=== PATIENT | male | born 1935 | race Caucasian/White ===

== ENCOUNTER 2016-12-20 15:05 | Inpatient (IN) | payer OTHER, MEDICARE ==
[~2016-12-20] VITALS: Ht 182.9 cm; Wt 77.1 kg
[2016-12-20 15:05] VITALS: BP 183/127; PULSE 121; RESP 30; TEMP 97.7; O2SAT 98
[~2016-12-20 15:05] MED LIST: DULO60CA41 PO; ESOM40CA PO; ESOM40CA53 PO; FAMO20TA98 PO; LEVO500T20 PO; LORA-259 PO; PRAV40TA PO; PRED20TA PO; TRAM50TA92 PO; ZOLP10TA2 PO; [UNRECOGNIZED DRUG - CODE] IJ
--- NOTE | 2016-12-20 15:05 | NUR ---
BROUGHT IN BY ACLS RAFAELA 65 AND MANAS MOROCHO, PLACED IN BED #1 AND TRIAGED, REPORT GIVEN TO ANITRA
--- NOTE | 2016-12-20 15:05 | NUR ---
Arrived via ALS ambulance with resp distress. Resp 32 with retraction, accesory muscle use. Lungs with scant wheezes, diminished throughout. Skin is dry and flushed. West to speak one word at a time only.
--- NOTE | 2016-12-20 15:06 | NUR ---
Dr. Mata immediantly to bedside.
--- NOTE | 2016-12-20 15:07 | NUR ---
Dale MCKEON at bedside starting BiPAP.
[2016-12-20] MEDS ORDERED: NS 500 ML IV SCH (15:10)
[2016-12-20] MEDS ORDERED: IPRATROPIUM BROM 0.5 MG/2.5 ML VIAL.NEB (ATROVENT) INH ONE ×2 (15:14→15:15)
[2016-12-20] MEDS ORDERED: ALBUTEROL SULFATE 0.083% 2.5 MG/3 ML VIAL.NEB INH ONE ×2 (15:14→15:15)
[2016-12-20] MEDS ORDERED: methylPREDNISolone SOD SUCC/PF 62.5 MG/ML VIAL IVP ONE (15:15)
[2016-12-20 15:32] LABS: HEMOGLOBIN 15.3 g/dL (14.0-18.0); MEAN CORPUSCULAR VOLUME 89 fL (79.0-98.0); MONOCYTES # (AUTO) 0.3 K/uL (0.0-1.0)
--- NOTE | 2016-12-20 15:32 | NUR ---
Patient is tolerating BiPAP well. Able to speak in 3-4 word sentences, no accessory muscle use, patient is riding the machine at 22. O2 sat 100%. Lungs remain diminshed.
[2016-12-20 15:37] LABS: BASOPHILS # (AUTO) 0.1 K/uL (0.0-0.2); BASOPHILS % (AUTO) 2.1 % (0.0-2.0); EOSINOPHILS % (AUTO) 0.1 % (0.0-4.0); HEMATOCRIT 47.4 % (36-54); LYMPHOCYTES # (AUTO) 0.9 K/uL (1.0-5.5); LYMPHOCYTES % (AUTO) 16.2 % (20.5-51.5); MEAN CORPUSCULAR HEMOGLOBIN 29 pg (27-31); MEAN CORPUSCULAR HGB CONC 32 % (32-36); MONOCYTES % (AUTO) 5.6 % (1.7-9.3); NEUTROPHILS # (AUTO) 4.3 K/uL (1.8-7.7); PLATELET COUNT (AUTO) 236 K/uL (130-430); RED BLOOD CELL COUNT(AUTO) 5.33 MIL/uL (4.2-6.2); RED CELL DISTRIBUTION WIDTH 13.4 % (9.0-15.0); WHITE BLOOD COUNT (AUTO) 5.6 K/uL (4.8-10.8)
[2016-12-20 15:44] LABS: ANION GAP 13 (5-15); CALCIUM 8.8 mg/dL (8.4-11.0); CHLORIDE 94 mmol/L (98-107); CREATININE 1.14 mg/dL (0.55-1.30); GLUCOSE 198 mg/dL (70-99); SODIUM SERUM 136 mmol/L (136-145); UREA NITROGEN, BLOOD 24 mg/dL (8-21)
[2016-12-20 15:49] LABS: ALANINE AMINOTRANSFERASE 34 U/L (12-78); ALBUMIN 3.8 g/dL (3.4-4.8); ASPARTATE AMINOTRANSFERASE 29 U/L (10-37); TOTAL BILIRUBIN 0.3 mg/dL (0.0-1.0); TOTAL PROTEIN, SERUM 8.3 g/dL (6.4-8.3)
[2016-12-20 15:51] LABS: PROTHROMBIN TIME 10.7 SECS (9.5-12.5)
[2016-12-20 16:08] LABS: BLOOD GAS PH 7.304 (7.350-7.450)
[2016-12-20 16:09] LABS: BLOOD GAS BASE EXCESS -0.8 mmol/L (-3.0-3.0); BLOOD GAS HHB 1.1 % (0.0-6.0); BLOOD O2Hb% 97.4 % (94.0-97.0)
--- NOTE | 2016-12-20 16:50 | NUR ---
Patient is at rest in bed taking a nap. I inadvertently woke the patient up, denies pain, states that he feels improved.
[2016-12-20] MEDS: methylPREDNISolone SOD SUCC/PF 62.5 MG/ML VIAL IVP SCH ×2 (18:00→23:09)
--- NOTE | 2016-12-20 18:10 | NUR ---
Dr. Ceron is at bedside with pt.
--- NOTE | 2016-12-20 19:00 | NUR ---
Patient will be admitted to care of [facility]. Admitted to TELE unit. Will go to room 131 A. Belongings list completed. Summary report printed. Report given to DANE.
[2016-12-20 19:30] VITALS: BP 156/76; PULSE 79; RESP 24; TEMP 98.3; O2SAT 97
--- NOTE | 2016-12-20 19:30 | NUR ---
ADMISSION: The patient, NANCI BROWN, 81 y/o, M admitted by KIRSTY CRABTREE MD, was given written information regarding hospital policies, unit procedures and contact persons.
[2016-12-20 19:40] VITALS: BP 156/76; PULSE 79; RESP 24; TEMP 98.3; O2SAT 97
[2016-12-20] MEDS: IPRATROPIUM/ALBUTEROL SULFATE 3 ML AMPUL.NEB INH SCH ×2 (20:14→23:26)
[2016-12-20] MEDS ORDERED: TIOT18CA3 IH (20:20)
[2016-12-20] MEDS ORDERED: IPRA4AER INH (20:20)
[2016-12-20] MEDS ORDERED: MIRT15TA7 PO (20:20)
[2016-12-20] MEDS ORDERED: FLUT1DIS3 INH (20:20)
[2016-12-20] MEDS ORDERED: PRAV40TA63 PO (20:20)
[2016-12-20] MEDS ORDERED: ESOM40CA53 PO (20:20)
[2016-12-20] MEDS ORDERED: ALBU2.5V7 INH (20:20)
[2016-12-20] MEDS ORDERED: DULO20CA PO (20:20)
[2016-12-20] MEDS ORDERED: ZOLP10TA6 PO (20:20)
[2016-12-20 21:02] VITALS: BP 156/76; PULSE 78
--- NOTE | 2016-12-20 21:20 | NUR ---
PAGED PAGED KIRSTY ABDI AT [phone] SPOKE WITH KAMILLA.
--- NOTE | 2016-12-20 21:50 | NUR ---
DR. BRO CRABTREE GIVEN HOME MED LIST. AND ADVANCE DIET TO REGULAR.
[2016-12-20] MEDS: cefTRIAXone 1 GM in D5W 50 ML IV SCH (21:57)
[2016-12-20] MEDS ORDERED: DULoxetine HCL 20 MG CAPSULE.DR PO SCH (22:00)
[2016-12-20] MEDS ORDERED: DULoxetine HCL 30 MG CAPSULE.DR (CYMBALTA) PO ONE (22:30)
[2016-12-20] MEDS ORDERED: DULO60CA41 PO (22:33)
[2016-12-20] MEDS ORDERED: MIRTAZAPINE 15 MG TABLET PO ONE (22:40)
[2016-12-20] MEDS: PANTOPRAZOLE SODIUM 40 MG/VIAL (PROTONIX) IVP SCH (23:10)
[2016-12-21] VITALS: BP 149/74; PULSE 76; RESP 20; TEMP 98.7; O2SAT 98
--- NOTE | 2016-12-21 00:10 | NUR ---
NOTES PATIENT RESTING QUIETLY. HAS EKG IS PACED 100%. HAS PAIN PUMP TO LT. ABDOMEN. PATIENT STATES HE IS IN CONSTANT PAIN RE. TO HIS BACK SX. X6.
--- NOTE | 2016-12-21 02:05 | NUR ---
ROUNDS NO RESPIRATORY DISTRESS NOTED @ THIS TIME. APPEARS ASLEEP @ THIS TIME.
[2016-12-21] MEDS: IPRATROPIUM/ALBUTEROL SULFATE 3 ML AMPUL.NEB INH SCH ×6 (03:00→23:47)
--- NOTE | 2016-12-21 04:10 | NUR ---
PATIENT RESTING: Patient resting quietly. No acute distress noted. Vital signs within normal range.
[2016-12-21 04:47] VITALS: BP 146/72; PULSE 72; RESP 20; TEMP 98.6; O2SAT 100
[2016-12-21] MEDS: methylPREDNISolone SOD SUCC/PF 62.5 MG/ML VIAL IVP SCH ×3 (05:35→18:35)
--- NOTE | 2016-12-21 06:30 | NUR ---
CLOSING NOTES PT. WITH SOB WHEN GETTING UP TO BATHROOM. GAIT IS UNSTEADY. GOT ANGRY WHEN NURSE TRIED ASSISTING PATIENT TO BATHROOM. REFUSED ALARM BED.HAD HHN TREATMENT. CONTINUE ON O2 2L N/C. O2 SAT. IS 95% @ THIS TIME. HAD BM. CALL LIGHT WITHIN EASY ACCESS. EDUCATED PATIENT NOT TO GET OUT OF BED WITHOUT ASSIST. BED IN LOW POSITION. SIDE-RAILS UP X2. .
[2016-12-21 07:08] LABS: ALANINE AMINOTRANSFERASE 27 U/L (12-78); ALBUMIN 3.2 g/dL (3.4-4.8); ANION GAP 4 (5-15); ASPARTATE AMINOTRANSFERASE 16 U/L (10-37); CALCIUM 8.7 mg/dL (8.4-11.0); CHLORIDE 96 mmol/L (98-107); CREATININE 0.82 mg/dL (0.55-1.30); GLUCOSE 127 mg/dL (70-99); POTASSIUM 4.5 mmol/L (3.5-5.1); SODIUM SERUM 136 mmol/L (136-145); TOTAL BILIRUBIN 0.2 mg/dL (0.0-1.0); TOTAL PROTEIN, SERUM 7.3 g/dL (6.4-8.3); UREA NITROGEN, BLOOD 18 mg/dL (8-21)
[2016-12-21 07:37] LABS: BASOPHILS % (AUTO) 0.3 % (0.0-2.0); EOSINOPHILS # (AUTO) 0.1 K/uL (0.0-0.4); EOSINOPHILS % (AUTO) 1.9 % (0.0-4.0); HEMATOCRIT 41.7 % (36-54); LYMPHOCYTES # (AUTO) 0.7 K/uL (1.0-5.5); MEAN CORPUSCULAR HEMOGLOBIN 30 pg (27-31); MEAN CORPUSCULAR HGB CONC 34 % (32-36); MEAN CORPUSCULAR VOLUME 88 fL (79.0-98.0); MONOCYTES # (AUTO) 0.3 K/uL (0.0-1.0); MONOCYTES % (AUTO) 5.8 % (1.7-9.3); NEUTROPHILS # (AUTO) 4.2 K/uL (1.8-7.7); PLATELET COUNT (AUTO) 204 K/uL (130-430); RED BLOOD CELL COUNT(AUTO) 4.72 MIL/uL (4.2-6.2); RED CELL DISTRIBUTION WIDTH 13.6 % (9.0-15.0)
[2016-12-21 07:39] LABS: WHITE BLOOD COUNT (AUTO) 5.3 K/uL (4.8-10.8)
[2016-12-21 07:48] VITALS: BP 130/90; PULSE 70; RESP 18; TEMP 98.6; O2SAT 93
--- NOTE | 2016-12-21 07:50 | NUR ---
Initial Note Pt in stable condition, no s/s of distress or sob noted, pt has no c/o pain at this time, pt in stable condition. IV catheters patent, no signs of infection or infiltration noted. Pt aaox4, verbal. Bed at lowest position, call light within reach, will continue to monitor pt for any changes. Fall and aspiration precautions in place. Pt refused to have bed alarm on, explained to pt safety precautions and pt verbalized but continues to refuse. Charge nurse aware, educated pt to call when he needs help and he verbalized he understood and said yes.
[2016-12-21 08:16] LABS: BLOOD GAS BASE EXCESS 7.8 mmol/L (-3.0-3.0); BLOOD GAS COHb% 0.4 % (0.5-1.5); BLOOD O2Hb% 90.4 % (94.0-97.0)
[2016-12-21] MEDS ORDERED: NON-FORMULARY MEDICATION (Pravastatin Sodium 40 MG) PO SCH (09:00)
[2016-12-21] MEDS: SIMVASTATIN 20 MG TABLET PO SCH (09:03)
[2016-12-21] MEDS: DULoxetine HCL 30 MG CAPSULE.DR (CYMBALTA) PO SCH ×2 (09:03→21:15)
--- NOTE | 2016-12-21 09:58 | NUR ---
MD ROUNDS Dr Ceron making her rounds, aware of patients condition.
[2016-12-21] MEDS ORDERED: HYDROcodone/ACETAMIN 5-325 MG TAB (NORCO/ VICODIN) PO PRN (10:00)
--- NOTE | 2016-12-21 10:56 | NUR ---
ROUNDS Pt in bed, no s/s of distress or sob noted, pt has no c/o pain at this time, pt in stable condition, pt resting comfortably, will continue to monitor pt for any changes.
[2016-12-21] MEDS: MAG-AL HYDROX/SIMETH 30 ML UDC PO PRN (11:15)
[2016-12-21 12:07] VITALS: BP 125/65; PULSE 74; RESP 19; TEMP 98.7; O2SAT 95
[2016-12-21 16:12] VITALS: BP 128/72; PULSE 75; RESP 19; TEMP 98.2; O2SAT 97
--- NOTE | 2016-12-21 18:25 | NUR ---
Closing Note Pt in stable condition, no s/s of distress or sob noted, pt has no c/o pain at this time, pt in stable condition. IV catheters patent, no signs of infection or infiltration noted. Pt aaox4, verbal. Bed at lowest position, call light within reach, will endorse care of pt to incoming nurse. Fall and aspiration precautions in place. Pt has oxygen 2 liters via oxymizer, saturation of 95%. Per Dr Ceron pt is a modified code, no cpr or intubation, ok for pressors and bipap, there is an order in chart, notified charge nurse. Addendum: 12/21/16 at 1827 by Ruby Brown RN will endorse incoming nurse
--- NOTE | 2016-12-21 19:30 | NUR ---
INITIAL NOTES. RECEIVED PATIENT DURING BEDSIDE REPORT,AWAKE ORIENTED X4.FAMILIES AT BEDSIDE. HAS EXERTIONAL DYSPNEA. ON O2 2LPER N/C.
[2016-12-21] MEDS: IPRATROPIUM/ALBUTEROL SULFATE 3 ML AMPUL.NEB INH PRN (19:37)
[2016-12-21 20:00] VITALS: BP 135/71; PULSE 73; RESP 22; TEMP 98; O2SAT 94
--- NOTE | 2016-12-21 20:05 | NUR ---
VITAL SIGNS TAKEN. ALL WITHIN NORMAL LIMITS. BREATHING DEEP AND SHALLOW. SAID I AM OKAY .I DO THIS ALL THE TIME. SAT 96%.
[2016-12-21] MEDS: cefTRIAXone 1 GM in D5W 50 ML IV SCH (21:05)
[2016-12-21] MEDS: MIRTAZAPINE 15 MG TABLET PO SCH (21:15)
--- NOTE | 2016-12-21 21:20 | NUR ---
ALL DUE MEDS GIVEN. OFFERED PAIN MEDS BUT SAID I DONT NEED IT.
--- NOTE | 2016-12-21 23:00 | NUR ---
STILL SITTING UP WITH EYES CLOSE. DENIES SOB AND PAIN.
[2016-12-22] VITALS: BP 108/94; PULSE 69; RESP 17; TEMP 97.8; O2SAT 94
--- NOTE | 2016-12-22 | NUR ---
PATIENT SLEEPING ON LEFT SIDE POSITION. O2 ON. NO DISTRESS.
[2016-12-22] MEDS: methylPREDNISolone SOD SUCC/PF 62.5 MG/ML VIAL IVP SCH ×5 (00:23→23:06)
--- NOTE | 2016-12-22 02:00 | NUR ---
PATIENT CONTINUE SLEEPING TO RIGHT SIDE FLAT ON BED.
[2016-12-22] MEDS: IPRATROPIUM/ALBUTEROL SULFATE 3 ML AMPUL.NEB INH SCH ×7 (03:00→23:32)
--- NOTE | 2016-12-22 04:00 | NUR ---
SEEN PATIENT SITTING UP ON BED WITH O2 ON. DENIES SOB BUT SEEN BREATHING DEEP AND SHALLOW. WILL MONITOR CLOSELY.
[2016-12-22 04:57] VITALS: BP 107/45; PULSE 66; RESP 19; TEMP 98.2; O2SAT 94
--- NOTE | 2016-12-22 06:30 | NUR ---
CLOSING: HOURLY ROUNDS DONE. HYGIENE DONE. ALL NEEDS WERE ATTENDED, NO SCD NO MACHINE AVAILABLE. CALL LIGHT HAS BEEN WITHIN REACH. BED IN LOW POSITION. FALL PRECAUTION IN PROGRESS.
--- NOTE | 2016-12-22 08:32 | NUR ---
Nutrition Update Mele Scale 16 noted. Pt admitted for acute and chronic respiratory failure. Diet: regular BMI: 23.1 kg/m2 RD to follow per nutrition care standards.
--- NOTE | 2016-12-22 08:36 | NUR ---
Initial Note Patient A/O x4. Respirations even, slightly labored; Oxymizer in place, patient denies difficulty breathing. IV access patent. Denies chest pain and generalized discomfort at this time.Use of call light reviewed with patient. Bed in lowest and locked position. Fall and safety precautions in place. Encouraged patient to call for assistance, patient acknowledged understanding.
[2016-12-22 08:40] VITALS: BP 126/66; PULSE 80; RESP 18; TEMP 98.3; O2SAT 94
[2016-12-22] MEDS: SIMVASTATIN 20 MG TABLET PO SCH (09:20)
[2016-12-22] MEDS: DULoxetine HCL 30 MG CAPSULE.DR (CYMBALTA) PO SCH ×2 (09:20→20:44)
[2016-12-22] MEDS: PANTOPRAZOLE SODIUM 40 MG/VIAL (PROTONIX) IVP SCH (09:21)
--- NOTE | 2016-12-22 10:00 | NUR ---
Notes Plan of care reviewed with patient and . No further questions at this time.
[2016-12-22] MEDS ORDERED: FLUTICASONE/VILANTEROL 1 EACH BLST.W.DEV INH ONE (10:15)
[2016-12-22 12:00] VITALS: BP 111/71; PULSE 77; RESP 18; TEMP 98.1; O2SAT 94
--- NOTE | 2016-12-22 15:38 | NUR ---
Notes Home medication has been provided by and has been verified and labeled by pharmacy. Advair medication is in patient's cubby in medication room.
[2016-12-22 16:00] VITALS: BP 132/66; PULSE 55; RESP 20; TEMP 98.1; O2SAT 96
--- NOTE | 2016-12-22 18:00 | NUR ---
Notes Patient complaint of sore throat. Small white spots noted on oral cavity wall upon assessment. Dr. Ceron was made aware, orders were given and carried out.
[2016-12-22] MEDS: NYSTATIN 500,000 UNITS/5 ML UDC PO SCH ×2 (18:38→23:12)
--- NOTE | 2016-12-22 19:30 | NUR ---
Closing Note Patient needs met throughout shift. Patient remained free from respiratory distress throughout shift. Patient care has been endorsed to oncoming shift nurse.
--- NOTE | 2016-12-22 19:55 | NUR ---
PM SHIFT ASSESSMENT RECEIVED PATIENT IN BED, AOX4, 0N 02 2L OXYMIZER, NO SOB NOTED, VITALS STABLE. DENIES ANY PAIN OR DISCOMFORT AT THIS TIME. POC DISCUSSED WITH PATIENT. VERBALIZED UNDERSTANDING. ORIENTED TO USE CALL LIGHT FOR NURSE ASSISTANCE. CALL LIGHT WITHIN REACH, SAFETY MEASURES IN PLACE, WILL CONTINUE TO MONITOR.
[2016-12-22 20:00] VITALS: BP 106/61; PULSE 77; RESP 21; TEMP 98.8; O2SAT 92
[2016-12-22] MEDS: cefTRIAXone 1 GM in D5W 50 ML IV SCH (20:43)
[2016-12-22] MEDS: MIRTAZAPINE 15 MG TABLET PO SCH (20:44)
[2016-12-22] MEDS: ADVAIR 500/50 INH SCH (20:44)
[2016-12-22] MEDS: HEPARIN SODIUM,PORCINE 5000 UNITS/ML VIAL SUBCUT SCH ×2 (20:45→21:00)
[2016-12-22] MEDS ORDERED: FLUTICASONE 500 mCg/SALMETEROL 50 mCg DISKUS W.DEV INH SCH (21:00)
--- NOTE | 2016-12-22 22:15 | NUR ---
RN ROUNDS PATIENT RESTING QUIETLY IN BED, NO SOB NOTED, REMAINS ON 02 2L VIA OXYMIZER. DUE MEDICATIONS ADMINISTERED. PATIENT REFUSED HEPARIN SQ THIS PM. EDUCATED ON NEW MEDICATION BUT PATIENT STILL REFUSING. CALL LIGHT WITHIN REACH, WILL CONTINUE TO MONITOR.
--- NOTE | 2016-12-22 23:17 | NUR ---
IV/RN ROUNDS OLD IV LINE ACCIDENTLY PULLED OUT BY PATIENT. NEW IV LINE PLACED ON LEFT WRIST WITH 22 GAUGE CATHETER, GOOD BLOOD RETURN NOTED, SECURED WITH OPSITE AND TAPE. DUE MEDICATIONS ADMINISTERED. PATIENT AMBULATED TO BATHROOM WITH STANDBY ASSISTANCE, PLACED BACK IN BED, OXYMIZER AT 2L. SAFETY MEASURES IN PLACE, CALL LIGHT WITHIN REACH , WILL MONITOR.
--- NOTE | 2016-12-23 00:22 | NUR ---
RN ROUNDS PATIENT WAS C/O OF SOB EARLIER, RT CALLED AND ADMINISTERED BREATHING TX, PATIENT SLEEPING AT THIS TIME. REMAINS ON 02 2L VIA OXYMIZER, VITALS STABLE. SAFETY MEASURES IN PLACE, CALL LIGHT WITHIN REACH, WILL MONITOR.
[2016-12-23 01:20] VITALS: BP 121/51; PULSE 68; RESP 20; TEMP 98; O2SAT 94
--- NOTE | 2016-12-23 02:20 | NUR ---
RN ROUNDS PATIENT CONTINUES TO SLEEP, RESPIRATIONS EVEN AND UNLABORED. REMAINS ON 02 2L OXYMIZER. SAFETY MEASURES IN PLACE, CALL LIGHT WITHIN REACH, WILL MONITOR.
[2016-12-23] MEDS: IPRATROPIUM/ALBUTEROL SULFATE 3 ML AMPUL.NEB INH SCH ×6 (03:30→23:44)
--- NOTE | 2016-12-23 04:11 | NUR ---
RN ROUNDS PATIENT CONTINUES TO SLEEP, RESPIRATIONS EVEN AND UNLABORED. REMAINS ON 02 2L OXYMIZER. VITAL SIGNS STABLE. SAFETY MEASURES IN PLACE, CALL LIGHT WITHIN REACH, WILL CONTINUE TO MONITOR.
[2016-12-23 05:03] VITALS: BP 121/60; PULSE 65; RESP 19; TEMP 98.6; O2SAT 93
[2016-12-23] MEDS: NYSTATIN 500,000 UNITS/5 ML UDC PO SCH ×3 (05:54→17:41)
[2016-12-23] MEDS: methylPREDNISolone SOD SUCC/PF 62.5 MG/ML VIAL IVP SCH ×3 (05:54→21:37)
--- NOTE | 2016-12-23 06:18 | NUR ---
RN ROUNDS PATIENT AWAKE, NO SOB NOTED, REMAINS ON 02 2L VIA OXYMIZER. C/O OF BACK PAIN, REFUSED NORCO AT THIS TIME. PATIENT HAS MORPHINE PAIN PUMP TO HELP WITH BACK PAIN, DUE MEDICATIONS ADMINISTERED. NEEDS ATTENDED THROUGH OUT SHIFT, SAFETY MEASURES MAINTAINED, CALL LIGHT REMAINS WITHIN REACH, WILL CONTINUE TO MONITOR UNTIL REPORT GIVEN TO AM NURSE.
[2016-12-23 07:52] VITALS: BP 130/68; PULSE 85; RESP 20; TEMP 99.3; O2SAT 95
--- NOTE | 2016-12-23 08:00 | NUR ---
NOTE PT SITTING UP IN BED EATING HIS BREAKFAST. NO SOB/RESP DISTRESS OR PAIN/DISCOMFORT NOTED AT THIS TIME. PT HAS HIS OXIMIZER ON AT 2L. IV IN LEFT HAND INTACT AND PATENT AT THIS TIME. CALL LIGHT WITHIN REACH. PT STATES HE HAS PAIN IN BACK - ONGOING PROBLEM FOR YEARS.
[2016-12-23] MEDS: HEPARIN SODIUM,PORCINE 5000 UNITS/ML VIAL SUBCUT SCH ×2 (09:00→21:00)
[2016-12-23] MEDS ORDERED: FLUTICASONE/VILANTEROL 1 EACH BLST.W.DEV INH SCH (09:00)
[2016-12-23] MEDS: PANTOPRAZOLE SODIUM 40 MG/VIAL (PROTONIX) IVP SCH (09:08)
[2016-12-23] MEDS: DULoxetine HCL 30 MG CAPSULE.DR (CYMBALTA) PO SCH ×2 (09:09→21:37)
[2016-12-23] MEDS: SIMVASTATIN 20 MG TABLET PO SCH (09:09)
[2016-12-23] MEDS: ADVAIR 500/50 INH SCH ×2 (09:09→21:38)
--- NOTE | 2016-12-23 10:00 | NUR ---
NOTE PT AMBULATED TO RESTROOM WITH STEADY GAIT. O2 TUBING LONG AND EXTENDED AT THIS TIME. PT WILL BE WORKING WITH PHYSICAL THERAPY USING WALKER WITH SEAT (PT'S OWN). DENIES ANY PAIN OR ANY NEEDS AT THIS TIME. CALL LIGHT WITHIN REACH.
[2016-12-23] MEDS: DOCUSATE SODIUM 100 MG CAPSULE PO SCH ×2 (11:19→21:36)
--- NOTE | 2016-12-23 12:00 | NUR ---
NOTE PT SITTING UP IN BED WITH O2 OXIMIZER ON. PT'S AT BEDSIDE AT THIS TIME. NO SOB/RESP DISTRESS NOTED AT THIS TIME. NO NEEDS NOTED. CALL LIGHT WITHIN REACH.
[2016-12-23 12:53] VITALS: BP 121/71; PULSE 90; RESP 18; TEMP 98.3; O2SAT 96
[2016-12-23] MEDS: IPRATROPIUM/ALBUTEROL SULFATE 3 ML AMPUL.NEB INH PRN (13:17)
[2016-12-23] MEDS ORDERED: IPRATROPIUM/ALBUTEROL SULFATE 3 ML AMPUL.NEB INH ONE (14:15)
[2016-12-23] MEDS ORDERED: MAGNESIUM SULFATE 50 ML IV ONE (14:15)
[2016-12-23] MEDS ORDERED: methylPREDNISolone SOD SUCC/PF 62.5 MG/ML VIAL IVP ONE (14:15)
--- NOTE | 2016-12-23 15:00 | NUR ---
NOTE PT WAS SITTING UP IN BED AND WATCHING TELEVISION, WHEN HE HAD DIFFICULTY BREATHING AND COULD NOT CATCH HIS BREATH. 2 RESP THERAPISTS AND TAFFY CANDY MAKERMUKESH MCCULLOUGH AND DANIELITO AND MUKESH CERRATO WERE AT BEDSIDE. BREATHING TREATMENTS WERE BEING ADMINISTERED AND MEDICATIONS GIVEN. RESP THERAPIST WAS ALSO DOING CHEST THERAPY. AFTER ABOUT 10-15 MINUTES PT COUGHED UP A PIECE OF HAMBURGER MEAT WHICH HE HAD ASPIRATED ON WHEN EATING HIS HAMBURGER. ONCE PIECE OF MEAT WAS DISLODGED AND CAME UP IN MOUTH, HE STATED HE FELT MUCH BETTER AND WAS ABLE TO BREATHE WITHOUT ANY DISCOMFORT OR PAIN. DR CRABTREE WAS ON THE FLOOR AND CAME TO BEDSIDE AND ASSESSMENT OF PT WAS DONE AND MEDICATIONS WERE ORDERED AND CARRIED OUT. PT'S OXIMIZER IS ON AND NO NEEDS FURTHER WERE NEEDED AT THIS TIME. CALL LIGHT WITHIN REACH. Addendum: 12/23/16 at 1650 by Bianca Saunders RN ABG WAS ALSO ORDERED AND DONE PER REQUEST.
[2016-12-23 15:09] LABS: BLOOD GAS PH 7.374 (7.350-7.450)
[2016-12-23 15:10] LABS: ABG TOTAL HEMOGLOBIN 15.4 G/dL (12.0-18.0); BLOOD GAS BASE EXCESS 3.7 mmol/L (-3.0-3.0); BLOOD GAS COHb% 0.7 % (0.5-1.5); BLOOD GAS HHB 4.7 % (0.0-6.0); BLOOD O2Hb% 94.1 % (94.0-97.0)
--- NOTE | 2016-12-23 18:00 | NUR ---
NOTE PT SITTING UP IN BED WATCHING TELEVISION. PT SITTING UP IN BED DUE TO SEVERE BACK PAIN AND METAL IN HIS BACK. PT WAS CHECKED ON Q1' AND NEEDS AND CARE WAS GIVEN. PT HAS HIS O2 ON WITH OXIMIZER - NO SOB/RESP DISTRESS OR PAIN/DISCOMFORT NOTED AT THIS TIME. PT STABLE AND NO NEEDS NOTED AT THIS TIME. CALL LIGHT WITHIN REACH.
[2016-12-23 18:53] VITALS: BP 137/70; PULSE 84; RESP 20; TEMP 97.9; O2SAT 96
[2016-12-23 20:00] VITALS: BP 135/73; RESP 28; O2SAT 97
--- NOTE | 2016-12-23 20:00 | NUR ---
ASSESSMENT Pt alert/ oriented to self, time and place. Pt with oxymizer @ 2L/min. Pt with internal Morphine pump LLQ abdomen and RLQ abdominal internal spinal cord stimulator. SL present L wrist 22ga, no redness or swelling noted @ site.
--- NOTE | 2016-12-23 21:00 | NUR ---
HEPARIN Pt refusing to receive Heparin. Pt was given DVT education, Pt continuos to refuse medication.
[2016-12-23] MEDS: MIRTAZAPINE 15 MG TABLET PO SCH (21:36)
[2016-12-23] MEDS: cefTRIAXone 1 GM in D5W 50 ML IV SCH (21:36)
[2016-12-24 01:15] VITALS: BP 120/63; PULSE 75; RESP 18; TEMP 97.4; O2SAT 93
--- NOTE | 2016-12-24 02:00 | NUR ---
ASSESSMENT Pt sleeping. Addendum: 12/24/16 at 0756 by Марина Vogel RN PATIENT RESTING: Patient resting quietly. No acute distress noted. Vital signs within normal range. Patient is able to reposition self in bed and is encouraged to request assistance when needed.
[2016-12-24] MEDS: IPRATROPIUM/ALBUTEROL SULFATE 3 ML AMPUL.NEB INH SCH ×6 (03:00→23:00)
--- NOTE | 2016-12-24 04:00 | NUR ---
ASSESSMENT Patient is able to reposition self in bed and is encouraged to request assistance when needed.
[2016-12-24 04:35] VITALS: BP 107/50; PULSE 74; RESP 20; TEMP 98.1; O2SAT 95
--- NOTE | 2016-12-24 06:00 | NUR ---
PATIENT RESTING: Patient resting quietly. No acute distress noted. Vital signs within normal range.
[2016-12-24] MEDS: methylPREDNISolone SOD SUCC/PF 62.5 MG/ML VIAL IVP SCH ×3 (06:23→21:34)
[2016-12-24] MEDS: NYSTATIN 500,000 UNITS/5 ML UDC PO SCH ×5 (06:23→23:52)
[2016-12-24 06:33] LABS: WHITE BLOOD COUNT (AUTO) 14.4 K/uL (4.8-10.8)
[2016-12-24 07:16] LABS: HEMATOCRIT 41.1 % (36-54); HEMOGLOBIN 13.6 g/dL (14.0-18.0); LYMPHOCYTES # (AUTO) 0.6 K/uL (1.0-5.5); LYMPHOCYTES % (AUTO) 4.4 % (20.5-51.5); MEAN CORPUSCULAR HEMOGLOBIN 30 pg (27-31); MEAN CORPUSCULAR HGB CONC 33 % (32-36); MEAN CORPUSCULAR VOLUME 89 fL (79.0-98.0); MONOCYTES # (AUTO) 0.7 K/uL (0.0-1.0); MONOCYTES % (AUTO) 5.1 % (1.7-9.3); NEUTROPHILS # (AUTO) 13.1 K/uL (1.8-7.7); NEUTROPHILS % (AUTO) 90.5 % (40.0-70.0); PLATELET COUNT (AUTO) 204 K/uL (130-430); RED BLOOD CELL COUNT(AUTO) 4.61 MIL/uL (4.2-6.2); RED CELL DISTRIBUTION WIDTH 13.6 % (9.0-15.0)
--- NOTE | 2016-12-24 07:40 | NUR ---
AM ROUNDS Pt stable...No s/sx of shortness of breath..HL to LW flushes well...Pt with Morphine pump (pt states is turned on) to left lower abdomen/hip area and Stimulator to right side...Pt with oxymizer lying on bed, pt states "I'll put it on when I feel I need it"...Pt has FWW at bedside and ambulates to restroom with no difficulty....Call light/phone w/in reach...Will cont to monitolr
[2016-12-24 08:15] VITALS: BP 116/76; PULSE 72; RESP 22; TEMP 98.2; O2SAT 90
[2016-12-24] MEDS: HEPARIN SODIUM,PORCINE 5000 UNITS/ML VIAL SUBCUT SCH ×2 (09:00→21:00)
[2016-12-24] MEDS: ADVAIR 500/50 INH SCH ×2 (09:04→21:31)
[2016-12-24] MEDS: SIMVASTATIN 20 MG TABLET PO SCH (09:05)
[2016-12-24] MEDS: DULoxetine HCL 30 MG CAPSULE.DR (CYMBALTA) PO SCH ×2 (09:05→21:32)
[2016-12-24] MEDS: DOCUSATE SODIUM 100 MG CAPSULE PO SCH ×2 (09:05→21:32)
[2016-12-24] MEDS: PANTOPRAZOLE SODIUM 40 MG/VIAL (PROTONIX) IVP SCH (10:07)
--- NOTE | 2016-12-24 10:08 | NUR ---
PT AMBULATING WITH PHYSICAL THERAPY PT USING FWW, GAIT STEADY...WILL CONT TO MONITOR
--- NOTE | 2016-12-24 11:30 | NUR ---
PHYSICAL THERAPY CO-SIGN The Physical Therapy Progress Notes documented by Rn Admit have been reviewed. 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 Plan: continue PT as per plan of care. Addendum: 12/25/16 at 0812 by Janeth Dee PT Amended: Links added.
[2016-12-24 12:09] VITALS: BP 111/62; PULSE 81; RESP 16; TEMP 96.8; O2SAT 91
--- NOTE | 2016-12-24 14:00 | NUR ---
DR CRABTREE AT BEDSIDE
[2016-12-24] MEDS: MAG-AL HYDROX/SIMETH 30 ML UDC PO PRN (14:37)
--- NOTE | 2016-12-24 14:40 | NUR ---
PT C/O HEARTBURN PRN MEDICATION GIVEN....WILL CONT TO MONITOR
[2016-12-24 16:15] VITALS: BP 138/86; PULSE 74; RESP 16; TEMP 97.6; O2SAT 97
--- NOTE | 2016-12-24 18:53 | NUR ---
PT C/O SOB PT SPEAKING FULL SENTENCES, ANGRY, CURSING, REMOVED OXYGEN, STATED "THIS SHIT DOESN'T WORK", PT REQUESTED A BREATHING TREATMENT...RT CALLED FOR SCHEDULED TREATMENT
--- NOTE | 2016-12-24 19:04 | NUR ---
PT NOW CALM AND COMFORTABLE O2 SATURATION AT 93% ON ROOM AIR...WILL CONT TO MONITOR
--- NOTE | 2016-12-24 19:30 | NUR ---
INITIAL NOTES: PT IS AWAKE, ALERT, ORIENTED X 4. WATCHING TV. NO COMPLAIN OF PAIN. NOT DISTRESS. VITAL SIGN ARE WITH IN NORMAL LIMIT. ROOM AIR. PT HAS IV LOCK LEFT FA- 22- PATENT AND INTACT. POC DISCUSSED TO PT. ENCOURAGE TO CALL USE CALL LIGHT WHEN OOB. SIDE RAILS UP. LOW BED POSITION. SAFETY ON. CALL LIGHT IN REACH. WILL MONITOR.
[2016-12-24 19:43] VITALS: BP 121/66; PULSE 74; RESP 20; TEMP 98.8; O2SAT 90
[2016-12-24] MEDS: cefTRIAXone 1 GM in D5W 50 ML IV SCH (19:56)
[2016-12-24] MEDS: MIRTAZAPINE 15 MG TABLET PO SCH (21:32)
--- NOTE | 2016-12-24 22:00 | NUR ---
ROUND NOTES: ALERT, AWAKE. WATCHING TV. NO DISTRESS. CALL LIGHT IN REACH. WILL MONITOR.
[2016-12-25] VITALS: BP 137/54; PULSE 64; RESP 18; TEMP 97; O2SAT 95
--- NOTE | 2016-12-25 | NUR ---
round notes: pt wakes up. and take his medication. needs attended. no pain. will monitor.
--- NOTE | 2016-12-25 02:05 | NUR ---
round notes: sleeping on his side. comfortable. no difficulty of breathing. no distress. safety on. will monitor.
[2016-12-25] MEDS: IPRATROPIUM/ALBUTEROL SULFATE 3 ML AMPUL.NEB INH SCH ×2 (03:00→07:32)
--- NOTE | 2016-12-25 04:00 | NUR ---
round notes: sleeping on his side. no discomfort and not distress.no difficulty of breathing. call light in reach. will monitor.
[2016-12-25 04:20] VITALS: BP 132/64; PULSE 68; RESP 17; TEMP 97.6; O2SAT 98
[2016-12-25] MEDS: NYSTATIN 500,000 UNITS/5 ML UDC PO SCH (05:52)
[2016-12-25] MEDS: methylPREDNISolone SOD SUCC/PF 62.5 MG/ML VIAL IVP SCH (05:53)
--- NOTE | 2016-12-25 06:00 | NUR ---
round notes: pt is awake, alert. watching tv. no pain. am medication given. needs attended. will monitor.
--- NOTE | 2016-12-25 06:47 | NUR ---
closing: pt is awake, alert. watching tv. no pain. not distress. stable. needs attended. call light in reach. will give bedside report ti incoming rn.
--- NOTE | 2016-12-25 07:20 | NUR ---
initial notes: pt on bed awake, alert and oriented. I.V. access patent. call light within reach. report given at bedside.
[2016-12-25 08:02] VITALS: BP 136/65; PULSE 74; RESP 14; TEMP 99.3; O2SAT 92
[2016-12-25] MEDS: HEPARIN SODIUM,PORCINE 5000 UNITS/ML VIAL SUBCUT SCH (09:00)
[2016-12-25] MEDS: ADVAIR 500/50 INH SCH (09:54)
[2016-12-25] MEDS: PANTOPRAZOLE SODIUM 40 MG/VIAL (PROTONIX) IVP SCH (09:55)
[2016-12-25] MEDS: DOCUSATE SODIUM 100 MG CAPSULE PO SCH (09:55)
[2016-12-25] MEDS: SIMVASTATIN 20 MG TABLET PO SCH (09:55)
[2016-12-25] MEDS: DULoxetine HCL 30 MG CAPSULE.DR (CYMBALTA) PO SCH (09:56)
--- NOTE | 2016-12-25 10:02 | NUR ---
med pass: pt standing at the sink, shaving and observed having shortness of breath. Assisted back to the bed. Administered inhaler and placed oxygen back. Medication given and pt compliant. Patient improved. No SOB observed.
[2016-12-25 10:52] VITALS: BP 134/60; PULSE 69; RESP 18; TEMP 98.6; O2SAT 92
[2016-12-25] MEDS ORDERED: PRED10TA PO (11:18)
[2016-12-25] MEDS ORDERED: NYSSUS PO (11:20)
--- NOTE | 2016-12-25 11:20 | NUR ---
PT NOTES CLEARED BY RN FOR P.T. TX. 1ST ATTEMPT, PATIENT WAS UNAVAILABLE DUE TO PATIENT DOING BEDSIDE SELF CARE ACTIVITIES & PATIENT REQUESTED TO BE SEEN AT A LATER TIME. 2ND ATTEMPT, PATIENT WAS IN A SEMI [place]ULTA[place] POSITION IN BED W/ PRESENT BY BEDSIDE. PATIENT DECLINED THERAPY. PATIENT STATED, "I AM GOING HOME." EDUCATED PATIENT ON IMPORTANCE OF THERAPY, ENERGY CONSERVATION TECHNIQUES, & DEEP BREATHING TECHNIQUES. HOWEVER PATIENT STILL DECLINED. PATIENT'S O2 AT REST ON RA 89% & RN WAS NOTIFIED. RN & PRIMARY THERAPIST AWARE PATIENT DECLINED TX. PVE(2) Addendum: 12/25/16 at 1456 by Janeth Dee PT PHYSICAL THERAPY CO-SIGN The Physical Therapy Progress Notes documented by Diesel Technician have been reviewed. Reviewed/Co-Signed by: Janeth Dee PT Documentation Done by: Juanita Garces PTA
[2016-12-25 11:28] VITALS: BP 125/60; PULSE 70; RESP 19; TEMP 97.5; O2SAT 94
--- NOTE | 2016-12-25 11:40 | NUR ---
D/C Patient Patient given medication reconciliation form and D/C instructions. Exit Care provided. Patient verbalized understanding. MD discussed with patient the results and treatment provided. Ambulatory with steady gait for discharge to home. Patient in stable condition, ID band removed. IV catheter removed, intact and dressing applied, no active bleeding. Rx given. Patient educated on pain management. All belongings sent with patient.
--- NOTE | 2016-12-25 12:00 | NUR ---
MONSERRAT DC PLANNING CALLED TO [facility]: [phone]; LEFT MESSAGE WITH EXCHANGE TO CALL BACK FOR ACCEPTANCE AND RESUMPTION OF HH SERVICES POST DC HOME TODAY. REC'D VERBAL ORDER FROM DR. BARKER TO RESUME HH PER Pt's PRIOR AGENCY, [facility]. 1350: NO CALL BACK FROM [facility]; CALLED AGAIN AND S/W TIGRE WHO STATED Pt DOES NOT HAVE AN OPEN CASE WITH THEM FOR HH SINCE BEGINNING OF 2015; AND, THEY ARE NOT ACCEPTING NEW PATIENTS AT THIS TIME FOR HH SERVICES. 1500: CALLED TO /[facility] AT HOME Pt LEFT AT 1150 TO UPDATE ABOUT [facility]; PROVIDED HER WITH ALTERNATE CHOICES FOR HH ([facility], [facility], [facility], [facility], AND [facility]). IN AGREEMENT WITH USING [facility]. MONSERRAT C/T [facility]: [phone]; S/W KIRSTY; SHE AGREED TO ACCEPT Pt FOR HH SERVICES; FAXED PERTINENT MED RECORDS TO [facility]-FA[facility]: [phone]. CALLED BACK TO /[facility] AND NOTIFIED THAT [facility]PT[facility] AND WILL CONTACT WITH VISIT DATE FOR TOMORROW OR ON TUESDAY.
--- NOTE | 2016-12-29 17:06 | NUR ---
Discharge Follow Up Phone Calls: General Teller called and left voice mails for pt ([phone]) on 12/28/16 and today. Pt's called back today and left a voice mail stating that pt is currently in ICU at [facility] and denied the need for additional follow up at this time. No further follow up phone calls required at this time.
== END 2016-12-25 11:40 | disposition home health service (06) | DRG 189 ==
LOC: SED 15:05 → MERGE 17:54 → STU 17:54
PROVIDERS: ADMIT Specialist; ATTEND Specialist
PROC: 5A09357 Assistance with Respiratory Ventilation, Less than 24 Consecutive Hours, Continuous Positive Airway Pressure (ICD-10-PCS; principal; 2016-12-20)
DX: J96.20 Acute and chronic respiratory failure, unspecified whether with hypoxia or hypercapnia (principal); J44.1 Chronic obstructive pulmonary disease with (acute) exacerbation; B37.0 Candidal stomatitis; G89.29 Other chronic pain; F17.210 Nicotine dependence, cigarettes, uncomplicated; Z96.652 Presence of left artificial knee joint; Z90.49 Acquired absence of other specified parts of digestive tract; Z87.81 Personal history of (healed) traumatic fracture
CPT/HCPCS: 36415; 36600; 71010; 80053; 82803-TC; 83605; 83874; 84484; 85025; 85610-TC; 85730-TC; 87040-TC; 87081; 93005; 93970; 94640; 94660; 94760; 96361; 96374; 97110-GP; 97116-GP; 97530-GP; 99291; C9113; J0696; J1644; J2930; J3475; J7040; J7050; J7060

== ENCOUNTER 2017-02-09 08:58 | Inpatient (IN) | payer OTHER, MEDICARE ==
[~2017-02-09] VITALS: Ht 182.9 cm; Wt 79.8 kg
[2017-02-09] VITALS (21 sets, daily range): BP systolic 99–178; BP diastolic 51–101; PULSE 61–138; RESP 20–32; TEMP 96.6–98.2; O2SAT 91–100
[~2017-02-09 08:58] MED LIST changes: +ALBU2.5V7 INH; +DULO20CA PO; +FLUT1DIS3 INH; +IPRA4AER INH; +MIRT15TA7 PO; +NYSSUS PO; +PRAV40TA63 PO; +PRED10TA PO; +TIOT18CA3 IH; +ZOLP10TA6 PO
--- NOTE | 2017-02-09 08:58 | NUR ---
BROUGHT IN BY ACLS SQUARABELLA 65 AND MANAS MOROCHO, PLACED IN BED #1, CALLED ALL STAFF TO BEDSIDE AND DR ALMANZA. TRIAGED. REPORT GIVEN TO GENIE
--- NOTE | 2017-02-09 08:58 | NUR ---
Dr. Ruiz at bedside
--- NOTE | 2017-02-09 08:58 | NUR ---
Patient brought in by medics due to patient complaining of 24 hours of shortness of breath that is worsening. Expiratory wheezing noted, +tripoding with accessory muscle usage. Patient is alert and oriented x4 but can not complete sentences, states that he can't breath. No other complaints/injuries per patient or noted.
--- NOTE | 2017-02-09 09:06 | NUR ---
Patient not known to be of DNR status. Patient medicated for sedation prior to placement of ET tube (see emar). Respiratory therapy at bedside prior to placement. Size 7.5 ET tube placed by Dr. Ruiz. Cuff inflated with 10 cc air by RT. Auscultation of breath sounds over bilateral chest wall. ET tube secured by RT. O2 sats 100% pulse ox. PCXR ordered to check tube placement.
[2017-02-09] MEDS ORDERED: NACL 0.9% 1,000 ML IV SCH (09:13)
[2017-02-09] MEDS ORDERED: PIPERACILLIN/TAZO 3.38 GM in D5W 50 ML IV ONE (09:15)
--- NOTE | 2017-02-09 09:20 | NUR ---
# 16 FR Phelan catheter with use of sterile technique by student RN and nursing student. Immediate return of 60 cc clear yellow urine noted. Bedside drainage bag placed below level of bladder. Urine sample collected and sent to lab. Pt tolerated procedure well.
[2017-02-09 09:27] LABS: BASOPHILS # (AUTO) 0.3 K/uL (0.0-0.2); BASOPHILS % (AUTO) 0.8 % (0.0-2.0); EOSINOPHILS % (AUTO) 0.1 % (0.0-4.0); HEMATOCRIT 42.3 % (36-54); HEMOGLOBIN 14.3 g/dL (14.0-18.0); LYMPHOCYTES # (AUTO) 1.5 K/uL (1.0-5.5); LYMPHOCYTES % (AUTO) 4.4 % (20.5-51.5); MEAN CORPUSCULAR HEMOGLOBIN 30 pg (27-31); MEAN CORPUSCULAR HGB CONC 34 % (32-36); MEAN CORPUSCULAR VOLUME 88 fL (79.0-98.0); MONOCYTES # (AUTO) 1.3 K/uL (0.0-1.0); MONOCYTES % (AUTO) 3.9 % (1.7-9.3); NEUTROPHILS # (AUTO) 31.3 K/uL (1.8-7.7); PLATELET COUNT (AUTO) 257 K/uL (130-430); RED BLOOD CELL COUNT(AUTO) 4.81 MIL/uL (4.2-6.2); RED CELL DISTRIBUTION WIDTH 15.5 % (9.0-15.0)
[2017-02-09] MEDS ORDERED: PIPERACILLIN/TAZOBACTAM 3.375 GM/VIAL (ZOSYN) IV ONE (09:27)
[2017-02-09] MEDS ORDERED: ETOMIDATE 20 MG/ 10 ML VIAL (AMIDATE) IVP ONE (09:30)
[2017-02-09] MEDS ORDERED: ROCURONIUM BROMIDE 10 MG/ML (ZEMURON) IV ONE (09:30)
[2017-02-09 09:31] LABS: WHITE BLOOD COUNT (AUTO) 34.4 K/uL (4.8-10.8)
--- NOTE | 2017-02-09 09:35 | NUR ---
NG tube placed to left nare by student nurse and nursing admin. Placement checked by auscultation of instilled air into stomach and aspiration of gastric contents. Tubing taped in place to prevent dislodging. Patient tolerated well.
[2017-02-09] MEDS ORDERED: methylPREDNISolone SOD SUCC/PF 62.5 MG/ML VIAL IVP ONE (09:45)
[2017-02-09] MEDS ORDERED: PROPOFOL DRIP 100 ML IV ONE ×2 (09:45→10:15)
[2017-02-09 09:48] LABS: INR 1.2 (0.80-1.20); PROTHROMBIN TIME 12.6 SECS (9.5-12.5)
[2017-02-09 09:55] LABS: BILIRUBIN,URINE NEGATIVE (NEGATIVE); CLARITY/URINE CLEAR (CLEAR); COLOR,URINE YELLOW (YELLOW); GLUCOSE,URINE NEGATIVE (NEGATIVE); KETONES,URINE NEGATIVE (NEGATIVE); LEUKOCYTE ESTERASE ,URINE NEGATIVE (NEGATIVE); NITRITE, URINE NEGATIVE (NEGATIVE); PH,URINE 5.5 (5.0-8.0); PROTEIN URINE NEGATIVE (NEGATIVE); UROBILINOGEN,URINE 0.2 (0.2-1.0)
[2017-02-09 09:59] LABS: ALANINE AMINOTRANSFERASE 5 U/L (12-78); ALBUMIN 3.2 g/dL (3.4-4.8); ANION GAP 8 (5-15); ASPARTATE AMINOTRANSFERASE 19 U/L (10-37); CALCIUM 9.3 mg/dL (8.4-11.0); CHLORIDE 98 mmol/L (98-107); GLUCOSE 130 mg/dL (70-99); POTASSIUM 4.2 mmol/L (3.5-5.1); SODIUM SERUM 137 mmol/L (136-145); TOTAL BILIRUBIN 1.2 mg/dL (0.0-1.0); TOTAL PROTEIN, SERUM 7.9 g/dL (6.4-8.3); UREA NITROGEN, BLOOD 11 mg/dL (8-21)
--- NOTE | 2017-02-09 10:00 | NUR ---
Patient moving head side to side, waking up. Not pulling at ET tube. Propofol to be administered per MD ordered.
[2017-02-09 10:16] LABS: BLOOD, URINE TRACE (NEGATIVE)
--- NOTE | 2017-02-09 10:20 | NUR ---
Patient in stable condition, tolerating ventilator settings well. Remaining at bedside with patient. Not moving or pulling at any tubes/lines
--- NOTE | 2017-02-09 10:24 | NUR ---
Propofol drip increased to 10mcg/kg/min-patient shaking head side to side. Remaining with patient. Not pulling at ET tube.
[2017-02-09 10:26] LABS: BACTERIA,URINE MANY /HPF (None Seen); MUCUS,URINE None Seen /LPF (None Seen); RBC,URINE 0-3 /HPF (0-3); WBC,URINE 0-3 /HPF (0-3)
--- NOTE | 2017-02-09 10:30 | NUR ---
Dr. Ruiz aware of all vital signs.
--- NOTE | 2017-02-09 10:30 | NUR ---
Propofol drip increased to 15mcg/kg/min-patient shaking head side to side and moving arms. Remaining with patient. Not pulling at ET tube.
--- NOTE | 2017-02-09 10:35 | NUR ---
Only 1 L fluid for sepsis per MD order
--- NOTE | 2017-02-09 10:35 | NUR ---
Propofol drip increased to 20mcg/kg/min-patient shaking head side to side and moving arms. Remaining with patient. Not pulling at ET tube.
--- NOTE | 2017-02-09 10:40 | NUR ---
Propofol drip increased to 25mcg/kg/min-patient shaking head side to side and moving arms. Remaining with patient. Not pulling at ET tube.
--- NOTE | 2017-02-09 10:45 | NUR ---
Note aidee in EDM - 02/09/17 at 1128 by ALYSIA Admitted to ICU unit. 2 RTs, self and Carrie RN present, stable condition. To room 7. Summary report printed. Report given to nurse at bedside.
--- NOTE | 2017-02-09 10:45 | NUR ---
Propofol drip increased to 30mcg/kg/min-patient shaking head side to side and moving arms. Remaining with patient. Not pulling at ET tube.
--- NOTE | 2017-02-09 10:55 | NUR ---
Patient no longer moving arms around towards face (as before), or shaking head side to side. Stable, no distress noted.
--- NOTE | 2017-02-09 11:00 | NUR ---
RN NOTES: ADMISSION FROM ER PATIENT ADMITTED FROM ER, CAME IN VIA GURNEY, ORALLY INTUBATED TO VENT. WITH PROPOFOL DRIP GOING AT 30 MCG SCOPE SHOWS SINUS RHYTHM, VITALS CHECKED AND RECORDED. NGT IN PLACE/CLAMPED. PATIENT PLACED ON AC 20, VT 600, FIO2 50%.
--- NOTE | 2017-02-09 11:00 | NUR ---
Admitted to ICU unit. 2 RTs, self and Carrie RN present, stable condition. To room 7. Summary report printed. Report given to nurse at bedside.
--- NOTE | 2017-02-09 11:15 | NUR ---
RN NOTES: RESTRAINTS ATTEMPTING TO REACH FOR THE ET TUBE, BILATERAL WRIST SOFT RESTRAINTS APPLIED FOR SAFETY.
[2017-02-09] MEDS ORDERED: LORazepam 2 MG/ML VIAL ONE (11:25)
--- NOTE | 2017-02-09 11:30 | NUR ---
DR. CRABTREE HERE FOR CONSULT/VENT FOLLOW UP
[2017-02-09 11:40] LABS: NEUTROPHILS % (AUTO) 90.8 % (40.0-70.0)
[2017-02-09] MEDS ORDERED: IPRATROPIUM BROM 0.5 MG/2.5 ML VIAL.NEB (ATROVENT) INH PRN (11:45)
[2017-02-09] MEDS ORDERED: LORazepam 2 MG/ML VIAL IVP PRN (11:45)
[2017-02-09] MEDS ORDERED: PROPOFOL DRIP 100 ML IV PRN (11:45)
[2017-02-09] MEDS ORDERED: MORPHINE 2 MG/ML INJ. SYRINGE IVP PRN (11:45)
[2017-02-09] MEDS ORDERED: ALBUTEROL SULFATE 0.083% 2.5 MG/3 ML VIAL.NEB INH PRN ×2 (11:45→12:00)
--- NOTE | 2017-02-09 11:45 | NUR ---
PATIENT SEEN AND EXAMINED BY DR. ALFONSO, WITH ORDERS CARRIED OUT.
[2017-02-09] MEDS ORDERED: IPRATROPIUM/ALBUTEROL SULFATE 3 ML AMPUL.NEB INH PRN (12:15)
[2017-02-09] MEDS ORDERED: MORPHINE 4 MG/ML INJ. SYRINGE IVP PRN (12:15)
[2017-02-09] MEDS ORDERED: ONDANSETRON HCL 4 MG/2 ML VIAL IVP PRN (12:15)
[2017-02-09] MEDS ORDERED: ACETAMINOPHEN 325 MG TABLET PO PRN (12:15)
[2017-02-09 12:27] LABS: ABG TOTAL HEMOGLOBIN 14.3 G/dL (12.0-18.0); BLOOD GAS BASE EXCESS -1.7 mmol/L (-3.0-3.0); BLOOD GAS COHb% 1.9 % (0.5-1.5); BLOOD O2Hb% 96.5 % (94.0-97.0)
--- NOTE | 2017-02-09 13:00 | NUR ---
FEEDING STARTED: Nutren Pulmo tubefeeding started per order. 5cc of residual aspirated. Will reassess within 1 hour.
[2017-02-09] MEDS: PIPERACILLIN/TAZO 3.375/DEX-IS 50 ML IV SCH ×3 (13:18→23:49)
[2017-02-09] MEDS: IPRATROPIUM BROM 0.5 MG/2.5 ML VIAL.NEB (ATROVENT) INH SCH ×2 (14:01→19:38)
[2017-02-09] MEDS: ALBUTEROL SULFATE 0.083% 2.5 MG/3 ML VIAL.NEB INH SCH ×2 (14:01→19:38)
[2017-02-09] MEDS: IPRATROPIUM/ALBUTEROL SULFATE 3 ML AMPUL.NEB INH SCH ×2 (15:00→19:00)
[2017-02-09] MEDS: AZITHROMYCIN 500 MG in NS 250 ML IV SCH (15:17)
[2017-02-09] MEDS: NYSTATIN 500,000 UNITS/5 ML UDC PO SCH ×3 (15:18→21:06)
[2017-02-09] MEDS: methylPREDNISolone SOD SUCC/PF 62.5 MG/ML VIAL IVP SCH ×2 (15:18→21:04)
[2017-02-09] MEDS: PROPOFOL DRIP 100 ML IV PRN ×2 (16:46→23:52)
--- NOTE | 2017-02-09 17:00 | NUR ---
URINE CULTURE: URINE CULTURE COLLECTED, sent and logged with lab.
[2017-02-09] MEDS: SIMVASTATIN 20 MG TABLET PO SCH (17:38)
--- NOTE | 2017-02-09 19:10 | NUR ---
CLOSING NOTE: Endorsed care to MUKESH Valenzuela. Bed locked,in lowest position,call light within easy reach,upper side rails x 2 up.VSS, no signs of distress noted at this time.
--- NOTE | 2017-02-09 19:30 | NUR ---
PM ASSESSMENT PT AROUSABLE, A/OX4, AFEBRILE. ETT 7.5/ 25LL, VENT SETTINGS AC2O/TV600/ FIO2 50%/ PEEP5, NO SOB OR DISTRESS. SR W/ PAC'S ON THE MONITOR. IV SITES ON THE RT WRIST 20G, INTACT AND PATENT, INFUSING PROPOFOL. IV SITE ON RT FA 20G, INTACT AND PATENT, SL. NUTREN PULMONARY @30ML/HR, 10ML RESIDUALS, +BOWEL SOUNDS. ONEAL CATHETER IN PLACE, DRAINING TO GRAVITY W/ YELLOW URINE. SKIN INTACT, DRESSING ON OLD HEALING SCAR. BILAT WRIST RESTRAINTS W/ GOOD CIRCULATION. ORIENTED TO CALL LIGHT AND W/IN REACH, SAFETY PRECAUTIONS IN PLACE, WILL CONTINUE TO MONITOR.
[2017-02-09] MEDS: DULoxetine HCL 30 MG CAPSULE.DR (CYMBALTA) PO SCH ×2 (21:00→21:04)
--- NOTE | 2017-02-09 21:00 | NUR ---
PROPOFOL INCREASED PROPOFOL INCREASED TO 25MCG/KG/MIN, PT TOLERATING WELL. WILL CONTINUE TO MONITOR. SAFETY PRECAUTIONS IN PLACE. Addendum: 02/11/17 at 0451 by Bianca Tobias RN BILAT WRIST RESTRAINTS TAKEN OFF.
[2017-02-09] MEDS: PANTOPRAZOLE SODIUM 40 MG/VIAL (PROTONIX) IVP SCH (21:04)
[2017-02-09] MEDS: ENOXAPARIN SODIUM 40 MG/0.4 ML SYRINGE SUBCUT SCH (21:05)
[2017-02-10] VITALS (36 sets, daily range): BP systolic 88–126; BP diastolic 48–67; PULSE 60–133; RESP 11–26; TEMP 96.6–97.6; O2SAT 95–99; Ht 182.9 cm; Wt 79.8 kg
[2017-02-10] MEDS: IPRATROPIUM BROM 0.5 MG/2.5 ML VIAL.NEB (ATROVENT) INH SCH ×4 (00:40→22:15)
[2017-02-10] MEDS: ALBUTEROL SULFATE 0.083% 2.5 MG/3 ML VIAL.NEB INH SCH ×4 (00:40→22:14)
[2017-02-10 02:54] LABS: BILIRUBIN,URINE NEGATIVE (NEGATIVE); BLOOD, URINE 1+ (NEGATIVE); CLARITY/URINE CLEAR (CLEAR); COLOR,URINE YELLOW (YELLOW); GLUCOSE,URINE NEGATIVE (NEGATIVE); KETONES,URINE NEGATIVE (NEGATIVE); LEUKOCYTE ESTERASE ,URINE NEGATIVE (NEGATIVE); NITRITE, URINE NEGATIVE (NEGATIVE); PH,URINE 5.5 (5.0-8.0); PROTEIN URINE NEGATIVE (NEGATIVE); UROBILINOGEN,URINE 0.2 (0.2-1.0)
[2017-02-10 03:48] LABS: BACTERIA,URINE FEW /HPF (None Seen); RBC,URINE 0-3 /HPF (0-3); WBC,URINE 0-3 /HPF (0-3)
[2017-02-10 03:49] LABS: MUCUS,URINE None Seen /LPF (None Seen); URIC ACID CRYSTALS,URINE 0-10 /HPF (None Seen)
--- NOTE | 2017-02-10 04:00 | NUR ---
HYGIENE CHG BATH GIVEN, PT DID NOT TOLERATE TURNING TO SIDE VERY WELL. PT NEEDED TO REST IN BETWEEN CARE. O2SAT BACK UP TO 97%. NO SOB OR DISTRESS AT THIS TIME. SAFETY PRECAUTIONS IN PLACE, WILL CONTINUE TO MONITOR.
[2017-02-10] MEDS: PIPERACILLIN/TAZO 3.375/DEX-IS 50 ML IV SCH ×4 (05:31→23:41)
[2017-02-10] MEDS: methylPREDNISolone SOD SUCC/PF 62.5 MG/ML VIAL IVP SCH ×3 (05:31→21:38)
[2017-02-10] MEDS: PROPOFOL DRIP 100 ML IV PRN ×4 (05:32→21:46)
[2017-02-10 06:27] LABS: BASOPHILS % (AUTO) 0.1 % (0.0-2.0); EOSINOPHILS # (AUTO) 0.1 K/uL (0.0-0.4); EOSINOPHILS % (AUTO) 0.2 % (0.0-4.0); HEMATOCRIT 35.2 % (36-54); LYMPHOCYTES # (AUTO) 0.6 K/uL (1.0-5.5); LYMPHOCYTES % (AUTO) 2.2 % (20.5-51.5); MEAN CORPUSCULAR HEMOGLOBIN 30 pg (27-31); MEAN CORPUSCULAR HGB CONC 34 % (32-36); MEAN CORPUSCULAR VOLUME 88 fL (79.0-98.0); MONOCYTES # (AUTO) 0.8 K/uL (0.0-1.0); NEUTROPHILS # (AUTO) 24.1 K/uL (1.8-7.7); NEUTROPHILS % (AUTO) 94.5 % (40.0-70.0); PLATELET COUNT (AUTO) 245 K/uL (130-430); RED BLOOD CELL COUNT(AUTO) 4.01 MIL/uL (4.2-6.2); RED CELL DISTRIBUTION WIDTH 14.8 % (9.0-15.0); WHITE BLOOD COUNT (AUTO) 25.6 K/uL (4.8-10.8)
[2017-02-10 06:39] LABS: ALANINE AMINOTRANSFERASE 13 U/L (12-78); ALBUMIN 2.6 g/dL (3.4-4.8); ANION GAP 5 (5-15); ASPARTATE AMINOTRANSFERASE 11 U/L (10-37); CALCIUM 8.7 mg/dL (8.4-11.0); CHLORIDE 101 mmol/L (98-107); CREATININE 1.06 mg/dL (0.55-1.30); GLUCOSE 167 mg/dL (70-99); POTASSIUM 3.7 mmol/L (3.5-5.1); SODIUM SERUM 135 mmol/L (136-145); TOTAL BILIRUBIN 0.4 mg/dL (0.0-1.0); TOTAL PROTEIN, SERUM 6.9 g/dL (6.4-8.3); UREA NITROGEN, BLOOD 23 mg/dL (8-21)
[2017-02-10] MEDS: IPRATROPIUM/ALBUTEROL SULFATE 3 ML AMPUL.NEB INH SCH ×5 (07:00→23:00)
--- NOTE | 2017-02-10 07:35 | NUR ---
INITIAL NOTES RECEIVED PATIENT ON BED AWAKE,ALERT TRYING TO TOUCH HIS ETT AND NGT SIGNALING TO TAKE IT OUT;INSTRUCTED PATIENT NOT TO TAKE IT OUT AND EXPLAINED THE RISKS AND BENEFITS BUT CONTINOUS TO TOUCH IT;INCREASED DIPRIVAN DRIP TO 30 MCG/KG/MIN.BREATHING EVEN AND UNLABORED WITH ETT ATTACHED TO MECHANICAL VENTILATOR;TOLERATING SETTINGS WELL.WITH NGT FEEDING RUNNING AT 30 ML/HR;TOLERATING WELL.SAFETY AND FALL PRECAUTIONS IN PLACE.CALL LIGHT WITHIN REACH
--- NOTE | 2017-02-10 07:43 | NUR ---
CLOSING REPORT PT SLEEPING, ALL NEEDS MET. BEDSIDE REPORT GIVEN TO MUKESH CONWAY.
--- NOTE | 2017-02-10 07:50 | NUR ---
Nutrition Update Mele Scale 14 noted. Pt admitted for SOB. Diet: Nutren Pulmonary at 30 ml/hr, goal 50 ml/hr, Free Water Flush: 100 ml q6h via NGT BMI: 23.9 kg/m2 RD to follow per nutrition care standards.
[2017-02-10 08:05] LABS: BLOOD GAS PH 7.402 (7.350-7.450)
[2017-02-10 08:06] LABS: ABG TOTAL HEMOGLOBIN 12.5 G/dL (12.0-18.0); BLOOD GAS BASE EXCESS 4.5 mmol/L (-3.0-3.0); BLOOD GAS COHb% 0.3 % (0.5-1.5); BLOOD O2Hb% 96.2 % (94.0-97.0)
[2017-02-10] MEDS: DULoxetine HCL 30 MG CAPSULE.DR (CYMBALTA) PO SCH ×4 (08:40→21:39)
[2017-02-10] MEDS: PANTOPRAZOLE SODIUM 40 MG/VIAL (PROTONIX) IVP SCH ×2 (08:43→21:38)
[2017-02-10] MEDS: NYSTATIN 500,000 UNITS/5 ML UDC PO SCH ×4 (08:43→21:38)
--- NOTE | 2017-02-10 08:50 | NUR ---
NOTES DR. CRABTREE CAME AND EXAMINED THE PATIENT;INFORMED REGARDING PATIENTS OUTPUT OF 25 ML FOR 2 HOURS;WITH ORDERS AND CARRIED OUT
[2017-02-10] MEDS ORDERED: NON-FORMULARY MEDICATION (Pravastatin Sodium 40 MG) PO SCH (09:00)
[2017-02-10] MEDS ORDERED: NACL 0.9% 1,000 ML IV SCH (09:00)
[2017-02-10] MEDS: NACL 0.9% 1,000 ML IV SCH (12:00)
--- NOTE | 2017-02-10 12:00 | NUR ---
NOTES DR. ALFONSO CAME AND EXAMINED THE PATIENT;INFORMED REGARDING PATIENT'S LOW BP=88/50 AFTER DIPRIVAN DRIP INCREASED TO 40MCG/KG/MIN, BREWSTER =4. 500ML BOLUS ORDERED AND INITIATED. WILL CONTINUE TO MONITOR
[2017-02-10] MEDS: AZITHROMYCIN 500 MG in NS 250 ML IV SCH (12:01)
[2017-02-10] MEDS ORDERED: NS 500 ML IV ONE (12:30)
--- NOTE | 2017-02-10 15:10 | NUR ---
MELE SCALE EVALUATION: Patient evaluated for a low Mele score of 14. Patient was sedated (on Propofol), and received in an ICU [facility] bed with a Etoile XPRT mattress. Patient is unable to turn independently. Skin is fair. Recommend reposition patient every 2 hours with pillow support and off-load pressure areas with pillows for pressure re-distribution. Elevate, off-load and float bilateral heels with pillows. Use moisture barrier cream on buttocks and other moisture susceptible areas QID and as needed for soiling. Perform skin care and monitor skin integrity Q shift. Place patient on a low air-loss mattress if transferred to [facility].
[2017-02-10] MEDS: SIMVASTATIN 20 MG TABLET PO SCH (17:22)
--- NOTE | 2017-02-10 18:33 | NUR ---
CLOSING NOTES PATIENT ON BED ASLEEP EASILY AROUSED WITH LIGHT STIMULI.BREATHING EVEN AND UNLABORED WITH ETT INTACT AND PATENT ATTACHED TO MECHANICAL VENTILATOR;TOLERATING SETTINGS WELL.IVF INFUSING WELL;NO SIGNS AND SYMPTOMS OF INFILTRATION.WITH DIPRIVAN DRIP AT 35 MCG/KG/MIN;BREWSTER SCALE=4.ONEAL CATHETER INTACT AND PATENT DRAINING YELLOW BLOOD-TINGE URINE.SAFETY AND FALL PRECAUTIONS IN PLACE.CALL LIGHT WITHIN REACH.WILL ENDORSE TO NEXT SHIFT ACCORDINGLY
--- NOTE | 2017-02-10 19:00 | NUR ---
PROPOFOL DECREASED PROPOFOL DECREASED TO 30MCG/KG/MIN, PT TOLERATING WELL, WILL REASSESS SHORTLY. WILL CONTINUE TO MONITOR. SAFETY PRECAUTIONS IN PLACE.
--- NOTE | 2017-02-10 19:10 | NUR ---
Report given to MUKESH Valenzuela and endorsed all care.
--- NOTE | 2017-02-10 19:30 | NUR ---
PM ASSESSMENT PT AROUSABLE, A/OX3, AFEBRILE. ETT 7.5/ 25LL, VENT SETTINGS AC14/TV600/ FIO2 40%/ PEEP5, NO SOB OR DISTRESS. SR W/ PVC'S ON THE MONITOR. IV SITES ON THE RT WRIST 20G, INTACT AND PATENT, INFUSING PROPOFOL. IV SITE ON RT FA 20G, INTACT AND PATENT, INFUSING NS. NUTREN PULMONARY @40ML/HR, 40ML RESIDUALS, +BOWEL SOUNDS. ONEAL CATHETER IN PLACE, DRAINING TO GRAVITY W/ YELLOW AND SEDIMENTS URINE. SKIN INTACT, DRESSING ON SCAR. ORIENTED TO CALL LIGHT AND W/IN REACH, SAFETY PRECAUTIONS IN PLACE, WILL CONTINUE TO MONITOR.
[2017-02-10] MEDS: ENOXAPARIN SODIUM 40 MG/0.4 ML SYRINGE SUBCUT SCH (21:38)
[2017-02-11] VITALS (22 sets, daily range): BP systolic 99–139; BP diastolic 45–83; PULSE 62–103; RESP 14–33; TEMP 97.3–98.4; O2SAT 93–99
--- NOTE | 2017-02-11 00:30 | NUR ---
PROPOFOL DECREASED PROPOFOL DECREASED TO 25MCG/KG/MIN, PT TOLERATING WELL, WILL REASSESS SHORTLY. WILL CONTINUE TO MONITOR. SAFETY PRECAUTIONS IN PLACE.
[2017-02-11] MEDS: IPRATROPIUM BROM 0.5 MG/2.5 ML VIAL.NEB (ATROVENT) INH SCH ×4 (02:03→20:25)
[2017-02-11] MEDS: ALBUTEROL SULFATE 0.083% 2.5 MG/3 ML VIAL.NEB INH SCH ×4 (02:03→20:25)
[2017-02-11] MEDS: PROPOFOL DRIP 100 ML IV PRN ×2 (02:24→07:11)
[2017-02-11] MEDS: IPRATROPIUM/ALBUTEROL SULFATE 3 ML AMPUL.NEB INH SCH ×4 (03:00→23:00)
--- NOTE | 2017-02-11 04:30 | NUR ---
ROUNDS PT REORIENTED. PT NODDED UNDERSTANDING. SAFETY PRECAUTIONS IN PLACE, WILL CONTINUE TO MONITOR.
--- NOTE | 2017-02-11 05:00 | NUR ---
PROPOFOL INCREASED PT ATTEMPTING TO PULL ON ETT, PROPOFOL INCREASED TO 30MCG/KG/MIN, PT TOLERATING WELL. WILL CONTINUE TO MONITOR. SAFETY PRECAUTIONS IN PLACE.
--- NOTE | 2017-02-11 05:30 | NUR ---
PROPOFOL INCREASED PT ATTEMPTING TO PULL ON ETT WHILE CXR, PROPOFOL INCREASED TO 35MCG/KG/MIN, PT TOLERATING WELL. WILL CONTINUE TO MONITOR. SAFETY PRECAUTIONS IN PLACE.
[2017-02-11] MEDS: methylPREDNISolone SOD SUCC/PF 62.5 MG/ML VIAL IVP SCH ×3 (05:59→22:20)
[2017-02-11] MEDS: PIPERACILLIN/TAZO 3.375/DEX-IS 50 ML IV SCH ×4 (05:59→23:52)
[2017-02-11] MEDS: NACL 0.9% 1,000 ML IV SCH (05:59)
[2017-02-11 06:23] LABS: ANION GAP 8 (5-15); CHLORIDE 105 mmol/L (98-107); POTASSIUM 4.2 mmol/L (3.5-5.1); SODIUM SERUM 142 mmol/L (136-145)
[2017-02-11 06:24] LABS: ALANINE AMINOTRANSFERASE 12 U/L (12-78); ALBUMIN 2.5 g/dL (3.4-4.8); ASPARTATE AMINOTRANSFERASE 17 U/L (10-37); CALCIUM 8.4 mg/dL (8.4-11.0); CREATININE 0.87 mg/dL (0.55-1.30); GLUCOSE 144 mg/dL (70-99); TOTAL BILIRUBIN 0.2 mg/dL (0.0-1.0); TOTAL PROTEIN, SERUM 6.4 g/dL (6.4-8.3); UREA NITROGEN, BLOOD 24 mg/dL (8-21)
[2017-02-11 06:39] LABS: BASOPHILS % (AUTO) 0.1 % (0.0-2.0); HEMATOCRIT 34.7 % (36-54); HEMOGLOBIN 11.6 g/dL (14.0-18.0); LYMPHOCYTES # (AUTO) 0.6 K/uL (1.0-5.5); LYMPHOCYTES % (AUTO) 2.2 % (20.5-51.5); MEAN CORPUSCULAR HEMOGLOBIN 30 pg (27-31); MEAN CORPUSCULAR HGB CONC 33 % (32-36); MEAN CORPUSCULAR VOLUME 89 fL (79.0-98.0); MONOCYTES # (AUTO) 0.8 K/uL (0.0-1.0); MONOCYTES % (AUTO) 2.9 % (1.7-9.3); NEUTROPHILS # (AUTO) 25.4 K/uL (1.8-7.7); NEUTROPHILS % (AUTO) 94.8 % (40.0-70.0); PLATELET COUNT (AUTO) 234 K/uL (130-430); RED BLOOD CELL COUNT(AUTO) 3.88 MIL/uL (4.2-6.2); RED CELL DISTRIBUTION WIDTH 15.4 % (9.0-15.0); WHITE BLOOD COUNT (AUTO) 26.8 K/uL (4.8-10.8)
--- NOTE | 2017-02-11 07:18 | NUR ---
CLOSING NOTE ALL NEEDS MET. ENDORSED CARE AT BEDSIDE TO NURSE MAN RN.
[2017-02-11 07:43] LABS: BLOOD GAS PH 7.395 (7.350-7.450)
[2017-02-11 07:44] LABS: ABG TOTAL HEMOGLOBIN 11.9 G/dL (12.0-18.0); BLOOD GAS BASE EXCESS 1.2 mmol/L (-3.0-3.0); BLOOD GAS HHB 4.1 % (0.0-6.0); BLOOD O2Hb% 95.2 % (94.0-97.0)
[2017-02-11] MEDS: DULoxetine HCL 30 MG CAPSULE.DR (CYMBALTA) PO SCH ×2 (07:48→08:15)
[2017-02-11] MEDS: PANTOPRAZOLE SODIUM 40 MG/VIAL (PROTONIX) IVP SCH (08:15)
[2017-02-11] MEDS: NYSTATIN 500,000 UNITS/5 ML UDC PO SCH ×4 (08:15→21:04)
--- NOTE | 2017-02-11 09:05 | NUR ---
Self Extubation Pt self extubated. Ambu bag used to via ETT with RT and RNs at bedside. Pt saturation remained 88-94%.
--- NOTE | 2017-02-11 09:08 | NUR ---
page Paged Dr Brooke [phone]
--- NOTE | 2017-02-11 09:10 | NUR ---
Self Extubation Pt self extubated. Ambu bag used to via ETT with RT and RNs at bedside. Pt saturation remained 88-94%. Addendum: 02/11/17 at 0944 by Angei Keyes RN Entered in wrong time. Pt self extubated at 09:05am.
--- NOTE | 2017-02-11 09:10 | NUR ---
RN NOTES SPOKE TO INDIRA, PATIENT'S RE: DECISION TO REINTUBATE PER " DO NOT REINTUBATE", CONFIRMED BY 2 RNs, MYSELF AND KIRSTY RN. WOULD WANT TO SEE HOW PATIENT WILL RESPOND TO O2 VIA MASK OR CANNULA.
--- NOTE | 2017-02-11 09:10 | NUR ---
Charge nurse spoke with the Charge nurse MUKESH Sawyer spoke with the to make aware that pt self extubated and clarified Advance Directives and wishes.
--- NOTE | 2017-02-11 09:15 | NUR ---
On Venti mask Pt placed on 50% oxygen via venti mask. Diprivan is turned off. Oxygen saturation 95% Awake, alert, oriented x 1 to name only. Reorientation provided. Safe environment provided. Kept comfortable
--- NOTE | 2017-02-11 09:25 | NUR ---
DR. ALFONSO MADE AWARE THAT PATIENT SELF EXTUBATED AND DECIDED NOT TO REINTUBATE.
--- NOTE | 2017-02-11 10:00 | NUR ---
DR. ALFONSO HERE TO SEE PATIENT, AT BEDSIDE.
--- NOTE | 2017-02-11 10:30 | NUR ---
Pt update Pt is alert, awake, able to make needs known. No SOB on 50% oxygen via venti mask. at bedside. Ng tube removed and IV fluid dc'd per Dr. Brooke who saw the pt. Ice chips okay per Dr. Brooke. Repositioned for comfort. Call light in reach. Will continue to monitor.
[2017-02-11] MEDS ORDERED: MILK OF MAGNESIA 30 ML UDC PO PRN (11:15)
--- NOTE | 2017-02-11 11:36 | NUR ---
Social Service Note: [facility] received order for hospice evaluation; BOX CAR WASHER called to ICU; pt's no longer at bedside; BOX CAR WASHER placed call to pt's ([phone])-phone rings, no answering machine. BOX CAR WASHER will continue to reach out pt's . Hospice evaluation stated for eval to be done by [facility]; [facility] has faxed order and pt's information to [facility] ([phone] f.[phone]). BOX CAR WASHER will remain available for support. Addendum: 02/11/17 at 1215 by Sara Daley LCSW ALHAJI received a call from Donny at [facility] who states that they do not have an nurse available today for an evaluation; Donny states that they will make contact with pt's and set up an evaluation for Tuesday02/12/17. BOX CAR WASHER will remain available for support.
--- NOTE | 2017-02-11 11:42 | NUR ---
Respiratory Placed pt on 3L oxygen via nasal canula as ordered. Oxygen saturation = 96%, resting well. Will inform RT.
--- NOTE | 2017-02-11 12:00 | NUR ---
Lunch Pt's son brought shake and pt drank all of it without aspiration. Assisted as needed.
[2017-02-11] MEDS ORDERED: ROCURONIUM BROMIDE 10 MG/ML (ZEMURON) ONE (13:00)
[2017-02-11] MEDS ORDERED: ETOMIDATE 20 MG/ 10 ML VIAL (AMIDATE) ONE (13:00)
--- NOTE | 2017-02-11 14:00 | NUR ---
Phelan Catheter Phelan catheter draining reddish urine. Pt reports no pain. No bleeding on penis. Will continue to monitor.
--- NOTE | 2017-02-11 16:12 | NUR ---
Nursing update Resting in bed without SOB on 3L oxygen via nasal canula. No complaint of discomfort. Will continue to monitor. Call light in reach. Safe environment provided.
[2017-02-11] MEDS: SIMVASTATIN 20 MG TABLET PO SCH (17:18)
--- NOTE | 2017-02-11 18:13 | NUR ---
Nursing Update, Closing Pt eating dinner with minimum assist. No SOB, Calm, cooperative. Red colored urine on jordan catheter, reporting no pain. No bleeding on jordan insertion site. Changed dressing to pump site on back. Assisted as needed. Will give report to oncoming internet researcher.
--- NOTE | 2017-02-11 18:45 | NUR ---
Transferred pt to room 120 A. Will stay with pt and give report to shift production supervisor RN. Pt in no discomfort. No SOB. On 3L oxygen via nasal canula.
--- NOTE | 2017-02-11 20:00 | NUR ---
Opening Note Report received from [facility] ICU nurse. Patient is in stable condition. Currently resting in bed. O2 is at 4l via NC. Patient is alert and orient, however, is very forgetful. IV on the right arm is occluded will restart an new IV site. Phelan catheter is draining tere urine. Call light is within reach. Instructed to use it whenever in need of assistance.
[2017-02-11] MEDS: DOCUSATE SODIUM 100 MG CAPSULE PO SCH (21:04)
[2017-02-11] MEDS: PANTOPRAZOLE SODIUM 40 MG TAB PO SCH (21:04)
[2017-02-11] MEDS: ENOXAPARIN SODIUM 40 MG/0.4 ML SYRINGE SUBCUT SCH (21:04)
--- NOTE | 2017-02-11 22:00 | NUR ---
Rounds Patient is resting in bed. Currently received a breathing treatment.
[2017-02-12] VITALS (8 sets, daily range): BP systolic 30–149; BP diastolic 72–99; PULSE 74–92; RESP 16–20; TEMP 96.8–98.6; O2SAT 93–95
--- NOTE | 2017-02-12 | NUR ---
Rounds Patient is currently resting in bed.Call light is within reach.
[2017-02-12] MEDS: IPRATROPIUM BROM 0.5 MG/2.5 ML VIAL.NEB (ATROVENT) INH SCH ×4 (00:40→19:53)
[2017-02-12] MEDS: ALBUTEROL SULFATE 0.083% 2.5 MG/3 ML VIAL.NEB INH SCH ×4 (00:41→19:53)
--- NOTE | 2017-02-12 02:00 | NUR ---
Rounds Patient is sleeping in bed.Call light is within reach.
--- NOTE | 2017-02-12 04:00 | NUR ---
Rounds Patient is resting in bed. Call light is within reach.
[2017-02-12] MEDS: PIPERACILLIN/TAZO 3.375/DEX-IS 50 ML IV SCH ×3 (05:24→18:08)
[2017-02-12] MEDS: methylPREDNISolone SOD SUCC/PF 62.5 MG/ML VIAL IVP SCH (05:24)
--- NOTE | 2017-02-12 06:32 | NUR ---
Closing Note Patient is currently resting in bed. No signs of respiratory distress noted Call light is within reach. Will give report to the oncoming nurse.
[2017-02-12 07:17] LABS: HEMATOCRIT 36.2 % (36-54); HEMOGLOBIN 12.3 g/dL (14.0-18.0); MEAN CORPUSCULAR HEMOGLOBIN 30 pg (27-31); MEAN CORPUSCULAR HGB CONC 34 % (32-36); MEAN CORPUSCULAR VOLUME 88 fL (79.0-98.0); PLATELET COUNT (AUTO) 269 K/uL (130-430); RED BLOOD CELL COUNT(AUTO) 4.11 MIL/uL (4.2-6.2); RED CELL DISTRIBUTION WIDTH 15.5 % (9.0-15.0)
[2017-02-12 07:20] LABS: WHITE BLOOD COUNT (AUTO) 19.5 K/uL (4.8-10.8)
[2017-02-12 07:30] LABS: ANION GAP 5 (5-15); CALCIUM 8.5 mg/dL (8.4-11.0); CHLORIDE 101 mmol/L (98-107); CREATININE 0.84 mg/dL (0.55-1.30); GLUCOSE 180 mg/dL (70-99); POTASSIUM 4.3 mmol/L (3.5-5.1); SODIUM SERUM 139 mmol/L (136-145); UREA NITROGEN, BLOOD 21 mg/dL (8-21)
--- NOTE | 2017-02-12 07:30 | NUR ---
OPENING NOTES PT RESTING IN BED WHILE RECEIVING REPORT AT BEDSIDE. PT A/O X 4 AND STATES HE IS COMFORTABLE AND WITHOUT PAIN. VS STABLE. ONEAL IN PLACE AND SECURED TO LEG. EDUCATED PT ON FALL RISK PRECAUTIONS AND ENSURED PT COULD DEMONSTRATE THE USE OF THE CALL LIGHT. BED IS IN LOWEST POSITION
--- NOTE | 2017-02-12 09:00 | NUR ---
ROUNDS PT SITTING UP IN BED, EATING HIS BREAKFAST. FAMILY AT BEDSIDE. BED IN LOWEST POSITION AND CALL LIGHT WITHIN REACH
[2017-02-12] MEDS: NYSTATIN 500,000 UNITS/5 ML UDC PO SCH ×4 (09:28→20:32)
[2017-02-12] MEDS: PANTOPRAZOLE SODIUM 40 MG TAB PO SCH ×2 (09:28→20:32)
[2017-02-12] MEDS: DOCUSATE SODIUM 100 MG CAPSULE PO SCH ×2 (09:28→22:07)
--- NOTE | 2017-02-12 09:36 | NUR ---
Re- Patient belongings. Patient states he had some clothes when he was in ICU. Double checked his belonings with ICU to make sure they were not left behind. There are no belongings in ICU. Per ICU Charge, she stated to ask Clarisa the patients . Pt only has his glasses on. Addendum: 02/12/17 at 1256 by Kourtney Cabrera RN Patients took them home from the ER. Will bring new clothes.
--- NOTE | 2017-02-12 10:00 | NUR ---
[facility] rep at bedside speaking to patient and family
[2017-02-12 10:07] LABS: ATYPICAL LYMPHOCYTES % 0 % (0-0); BAND % (MANUAL) 0 % (0-6); BASOPHILS % (MANUAL) 0 % (0-2); EOSINOPHILS % (MANUAL) 0 % (0-7); LYMPHOCYTES % (MANUAL) 6 % (20-46); MONOCYTES % (MANUAL) 5 % (0-11)
--- NOTE | 2017-02-12 11:00 | NUR ---
ROUNDS PT FAMILY STILL AT BEDSIDE. PT STATES HE IS COMFORTABLE AND WITHOUT PAIN. PT EXPLAINED HE GETS FORGETFUL AT TIMES AND ATTRIBUTED THIS TO HIS MORPHINE PUMP. PT IS STILL A/O X 4. BED IN LOWEST POSITION AND CALL LIGHT WITHIN REACH.
--- NOTE | 2017-02-12 12:56 | NUR ---
Dr Edwardo peters MD notifed of pts request and concerns , New orders noted.
[2017-02-12] MEDS ORDERED: TAMSULOSIN HCL 0.4 MG CAP PO ONE (13:00)
--- NOTE | 2017-02-12 14:49 | NUR ---
DC ONEAL REMOVED ONEAL AND ASSISTED PT TO BATHROOM WITHOUT INCIDENT. BM X 1
[2017-02-12] MEDS: methylPREDNISolone SOD SUCC 40 MG/ML VIAL IVP SCH ×2 (15:12→22:05)
--- NOTE | 2017-02-12 17:30 | NUR ---
Nutrition F/U utritional Screening High Risk Screening Admitting Diagnosis SOB Reviewed Pertinent Medical/Surgical Hx Other Medical Record Medical History Comment: Severe COPD, chronic tobacco abuse, chronic pain syndrome, HLD, back Sx x5 per MD notes Subjective Information Pt seen resting in bed, no longer intubated or on mechanical vent, eating lunch (full liquid diet at time of visit), caregivers present at bedside. Pt asked when his diet would be advanced and stated that he needs more food since he is concerned about his weight. Reported that he has been drinking the Boost Plus supplement. Pt's caregiver stated that he pulled out his intubation so there was concern of him having issues swallowing. Denied any issues swallowing or GI symptoms. RD spoke w/ pt's over the phone who provided diet/wt history. Per RN, pt has been tolerating diet, no planned procedures today. Per EMR, pt was extubated on 02/11/17. I/Os (02/12/17): 845/1450 (-605 ml), 0 BMs x 4 days (02/09/17). Pt is not yet meeting optimal nutritional needs. Recommend Boost Plus TID to provide additional 1080 kcal and 42 gm [address] per day. RD left note for MD to sign. Pt is not yet appropriate for nutrition education. Current Diet Order/Nutrition Support Regular (advanced from full liquid today) Education Provided Not Indicated Pertinent Medications Colace, MoM Pertinent Labs WBC 19.5 H, BG 180 H Height (Feet) 6 feet Height (Inches) 0.00 inches Weight (Pounds) 176 pounds Weight (Calculated Kilograms) 79.269180 kilograms Patient Weight 79.832 kg Body Mass Index 23.87 kg/m2 %IBW 99 [place]/Adjusted Body Weight IBW: 178 lb, 81 kg Recent Weight Change Pt's reported that pt was previously at 325 lbs 1 1/2 yrs ago, then dropped to 195 lbs in 2 months, and then lost additional wt to 166 lbs in 1 1/2 months (total 49% wt loss; 15% wt loss x 1 1/2 months) Weight Status Appropriate Gastrointestinal Symptoms None Food Allergies None Usual Diet At Home Pt's reported pt typically eats 3 meals per day Skin Integrity Comment: Mele scale: 20; per nursing notes, posterior coccyx: redness Estimated Energy Expenditure (kcals/day) *modified 8782-8791 kcal/day (BEE x 1.2-1.5 for COPD) Estimated Protein Required (g/day) 104-160 gm/day (1.3-2 gm/kg CBW for COPD) Estimated Fluid Required (l/day) 1.8-2.3 L/day (1 ml/kcal/day for maintenance) Problem/Etiology/Signs/Symptoms Malnutrition related to prolonged catabolic illness as evidenced by reports of significant unintentional wt loss. *ongoing Increased nutrient needs related to pulmonary dysfunction and metabolic demands as evidenced by estimated nutritional needs for COPD and elevated WBC lab values *ongoing Expected Outcomes/Goals * Monitor tolerance of diet, appetite, and PO intakes with goal of pt meeting at least 75% of estimated nutritional needs, labs trending WNL, normal GI function, skin integrity/weight maintenance Dietitian Recommendations * Recommend continuing regular diet per MD * Recommend oral supplement Boost Plus TID * Encourage PO intake as tolerated Follow Up High Risk: F/U in 2-3days
--- NOTE | 2017-02-12 18:01 | NUR ---
Patient having shortness of breath, Assessed vitals and o2 saturation VSS, saturation is 96% on 2L NC. RT at bedside, for breathing treatment.
[2017-02-12] MEDS: SIMVASTATIN 20 MG TABLET PO SCH (18:09)
--- NOTE | 2017-02-12 18:58 | NUR ---
CLOSING NOTES PT SITTING UP IN BED, FINISHING THE LAST OF HIS DINNER AND TALKING TO HIS WHO IS AT BEDSIDE. PT SPO2 IS 93% ON 3 LITERS, BUT HE IS NO LONGER COMPLAINING OF SHORTNESS OF BREATH. HE IS CONCERNED LARGE MEALS PUT PRESSURE ON HIS DIAPHRAGM AND EXACERBATE HIS CONDITION, SO HE IS TRYING TO EAT SLOWER, SMALLER MEALS. BED IN LOWEST POSITION AND CALL LIGHT IS WITHIN REACH
--- NOTE | 2017-02-12 19:20 | NUR ---
INITIAL ROUNDS RECVD PT IN BED, A/A/O X 4 WITH @ BEDSIDE. NO SOB AND NO C/O PAIN @ THIS TIME. V/S 155/98,98.0,100,21,94% WITH 2L N/C. IV NOTED TO R HAND G 20, NO INFILTRATE AND WITH GOOD BLOOD RETURN. BUE ARE STRONG AND BLE ARE WEAK AND NEEDS ASSITANCE WITH WALKER. DISCUSSED PLAN OF CARE WITH PT AND VERBALIZED UNDERSTANDING. BED IN LOW POSITION WITH CALL LIGHT WITHIN REACH. WILL CONT TO MONITOR.
[2017-02-12] MEDS: ZOLPIDEM TARTRATE 5 MG TABLET PO SCH (20:32)
[2017-02-12] MEDS: TAMSULOSIN HCL 0.4 MG CAP PO SCH (20:32)
--- NOTE | 2017-02-12 21:00 | NUR ---
ASSISTED TO B/R ASSISTED TO B/R AND SAFELY BACK TO BED. NO S/S OF PAIN AND NO DISTRESS NOTED. LEFT BED IN LOW POSITION WITH CALL LIGHT WITHIN; WILL CONT TO MONITOR.
--- NOTE | 2017-02-12 23:00 | NUR ---
ROUNDS PT IS COMFORTABLY RESTING @ THIS TIME. NOS/S OF PAIN AND NO SOB NOTED. BED IN LOW POSITION AND CALL LIGHT WTHIN REACH; WILL CONT TO MONITOR.
[2017-02-13] MEDS: PIPERACILLIN/TAZO 3.375/DEX-IS 50 ML IV SCH ×5 (00:16→23:03)
[2017-02-13] MEDS: IPRATROPIUM BROM 0.5 MG/2.5 ML VIAL.NEB (ATROVENT) INH SCH ×4 (01:00→19:50)
[2017-02-13] MEDS: ALBUTEROL SULFATE 0.083% 2.5 MG/3 ML VIAL.NEB INH SCH ×4 (01:00→19:50)
--- NOTE | 2017-02-13 01:20 | NUR ---
ASSISTED WITH URINAL ASSISTED PT TO USE URINAL. NOS/S OF PAIN AND NO SOB NOTED. LEFT BED IN LOW POSITION AND CALL LIGHT WITHIN REACH; WILL CONT TO MONITOR.
--- NOTE | 2017-02-13 03:20 | NUR ---
ASSISTED WITH URINAL ASSISTED PT WITH USE OF URINAL. NO C/O PAIN AND NO SOB NOTED. CALL LIGHT WITHIN REACH; WILL CONT TO MONITOR.
[2017-02-13 03:29] VITALS: BP 146/60; PULSE 73; RESP 20; TEMP 97.6; O2SAT 98
[2017-02-13] MEDS: methylPREDNISolone SOD SUCC 40 MG/ML VIAL IVP SCH ×2 (05:07→21:03)
[2017-02-13] MEDS: IPRATROPIUM/ALBUTEROL SULFATE 3 ML AMPUL.NEB INH SCH ×3 (06:02→23:00)
--- NOTE | 2017-02-13 06:44 | NUR ---
P/U BY RADIOLOGY PT WAS P/U BY RADIOLOGY FOR X RAY. SENT PT WITH O2 TANK @ 3L VIA N/C.NO DISTRESS NOTED.
[2017-02-13 06:46] LABS: BASOPHILS % (AUTO) 0.1 % (0.0-2.0); EOSINOPHILS % (AUTO) 0.1 % (0.0-4.0); HEMOGLOBIN 12.2 g/dL (14.0-18.0); LYMPHOCYTES # (AUTO) 1.4 K/uL (1.0-5.5); LYMPHOCYTES % (AUTO) 8.1 % (20.5-51.5)
[2017-02-13 06:56] LABS: HEMATOCRIT 36.3 % (36-54); MEAN CORPUSCULAR HEMOGLOBIN 30 pg (27-31); MEAN CORPUSCULAR HGB CONC 34 % (32-36); MEAN CORPUSCULAR VOLUME 88 fL (79.0-98.0); MONOCYTES # (AUTO) 0.5 K/uL (0.0-1.0); MONOCYTES % (AUTO) 3.1 % (1.7-9.3); NEUTROPHILS # (AUTO) 14.9 K/uL (1.8-7.7); NEUTROPHILS % (AUTO) 88.6 % (40.0-70.0); PLATELET COUNT (AUTO) 268 K/uL (130-430); RED BLOOD CELL COUNT(AUTO) 4.12 MIL/uL (4.2-6.2); RED CELL DISTRIBUTION WIDTH 15.1 % (9.0-15.0); WHITE BLOOD COUNT (AUTO) 16.8 K/uL (4.8-10.8)
[2017-02-13 07:05] LABS: ALANINE AMINOTRANSFERASE 20 U/L (12-78); ALBUMIN 2.7 g/dL (3.4-4.8); ASPARTATE AMINOTRANSFERASE 19 U/L (10-37); CALCIUM 8.5 mg/dL (8.4-11.0); CHLORIDE 103 mmol/L (98-107); CREATININE 0.76 mg/dL (0.55-1.30); GLUCOSE 111 mg/dL (70-99); POTASSIUM 4.5 mmol/L (3.5-5.1); SODIUM SERUM 141 mmol/L (136-145); TOTAL BILIRUBIN 0.3 mg/dL (0.0-1.0); TOTAL PROTEIN, SERUM 6.4 g/dL (6.4-8.3); UREA NITROGEN, BLOOD 19 mg/dL (8-21)
[2017-02-13 07:29] LABS: ANION GAP < 3 (5-15)
--- NOTE | 2017-02-13 07:50 | NUR ---
OPENING NOTE PT IN BED, HEAD AT 80 DEGREES, EATING BREAKFAST. COMPLAINS OF LOW BACK PAIN (CHRONIC) / BUT DOES NOT WANT PNR ANALGESIC AT THIS TIME. WILL CONTINUE TO MONITOR PAIN LEVEL. BED IN LOWEST POSITION AND CALL LIGHT WITHIN REACH
[2017-02-13] MEDS: NYSTATIN 500,000 UNITS/5 ML UDC PO SCH ×4 (09:15→21:03)
[2017-02-13] MEDS: PANTOPRAZOLE SODIUM 40 MG TAB PO SCH ×2 (09:15→21:03)
[2017-02-13] MEDS: TAMSULOSIN HCL 0.4 MG CAP PO SCH ×2 (09:16→21:03)
[2017-02-13] MEDS: DOCUSATE SODIUM 100 MG CAPSULE PO SCH ×2 (09:16→21:03)
--- NOTE | 2017-02-13 09:41 | NUR ---
ROUNDS ASSISTED PT TO USE URINAL, THEN HELPED HIM BACK INTO BED. REESTABLISHED IV FLUIDS AND CONNECTED SCDS. BED IN LOWEST POSITION AND CALL LIGHT WITHIN REACH
--- NOTE | 2017-02-13 10:21 | NUR ---
Dr Brooke rounds Addendum: 02/13/17 at 1022 by Kourtney Cabrera RN Pt notified DR Brooke regarding abdominal alisson. will order US abdomen.
[2017-02-13 12:10] VITALS: BP 135/67; PULSE 79; RESP 16; TEMP 98.2; O2SAT 98
[2017-02-13] MEDS: FLUTICASONE PROPIONATE 50 mCg/SPRAY 16 GM NS SCH ×2 (13:11→21:06)
--- NOTE | 2017-02-13 14:00 | NUR ---
PATIENT UPSET ABOUT MISSING LUNCH AND DOES NOT WANT TO HAVE THE TEST DONE BECUASE HE IS HUNGRY AND WANTS TO EAT. INFORMED RADIOLOGY THAT PATIENT ATE AND THAT WE WILL RESCHEDULE FOR FIRST THING IN THE MORNING AND KEEP PATIENT NPO.
--- NOTE | 2017-02-13 16:00 | NUR ---
ROUNDS PT IN BED, APPEARS RESTLESS BUT STATED HE IS NOT IN PAIN. ASSISTED PT TO BATHROOM, VOID X 1. BED IN LOWEST POSITION AND CALL LIGHT WITHIN REACH
[2017-02-13 16:20] VITALS: BP 149/83; PULSE 69; RESP 16; TEMP 97.6; O2SAT 98
[2017-02-13] MEDS: SIMVASTATIN 20 MG TABLET PO SCH (18:05)
--- NOTE | 2017-02-13 19:00 | NUR ---
CLOSING NOTES PT FINISHED DINNER AND STILL APPEARS RESTLESS. PT IS WAITING FOR HIS TO VISIT AND STATED HE IS UPSET THAT SHE IS LATE. OFFERED TO CALL HIS WITH HIM BUT HE REFUSED.
[2017-02-13 19:50] VITALS: BP 134/73; PULSE 81; RESP 18; TEMP 98.1; O2SAT 93
--- NOTE | 2017-02-13 19:50 | NUR ---
PM ASSESSMENT PT. A/OX4, VITAL SIGNS STABLE, NO DISTRESS NOTED, DENIES PAIN. UPDATED WITH PLAN OF CARE, ENCOURAGED PT. TO USE CALL LIGHT FOR ASSISTANCE, SAFETY PRECAUTIONS MAINTAINED. WILL CONTINUE TO MONITOR.
[2017-02-13] MEDS: ZOLPIDEM TARTRATE 5 MG TABLET PO SCH (21:03)
--- NOTE | 2017-02-13 21:30 | NUR ---
RN ROUNDS PT. RESTING QUIETLY, VITAL SIGNS STABLE, NO DISTRESS NOTED, DENIES PAIN, CALL LIGHT WITHIN REACH, WILL CONTINUE TO MONITOR.
--- NOTE | 2017-02-13 23:40 | NUR ---
RN ROUNDS PT. RESTING QUIETLY, VITAL SIGNS STABLE, NO DISTRESS NOTED, DENIES PAIN, CALL LIGHT WITHIN REACH, WILL CONTINUE TO MONITOR.
[2017-02-13 23:50] VITALS: BP 142/75; PULSE 69; RESP 18; TEMP 97.8; O2SAT 95
[2017-02-14] MEDS: ALBUTEROL SULFATE 0.083% 2.5 MG/3 ML VIAL.NEB INH SCH ×2 (00:35→07:00)
[2017-02-14] MEDS: IPRATROPIUM BROM 0.5 MG/2.5 ML VIAL.NEB (ATROVENT) INH SCH ×2 (00:35→07:00)
--- NOTE | 2017-02-14 01:30 | NUR ---
RN ROUNDS PT. RESTING QUIETLY, VITAL SIGNS STABLE, NO DISTRESS NOTED, DENIES PAIN, CALL LIGHT WITHIN REACH, WILL CONTINUE TO MONITOR.
[2017-02-14] MEDS: IPRATROPIUM/ALBUTEROL SULFATE 3 ML AMPUL.NEB INH SCH ×3 (03:00→11:00)
--- NOTE | 2017-02-14 03:30 | NUR ---
RN ROUNDS PT. RESTING QUIETLY, VITAL SIGNS STABLE, NO DISTRESS NOTED, DENIES PAIN, CALL LIGHT WITHIN REACH, WILL CONTINUE TO MONITOR.
[2017-02-14 04:26] VITALS: BP 141/76; PULSE 84; RESP 18; TEMP 97.2; O2SAT 97
--- NOTE | 2017-02-14 05:30 | NUR ---
RN ROUNDS PT. RESTING QUIETLY, VITAL SIGNS STABLE, NO DISTRESS NOTED, DENIES PAIN, CALL LIGHT WITHIN REACH, WILL CONTINUE TO MONITOR.
[2017-02-14] MEDS: PIPERACILLIN/TAZO 3.375/DEX-IS 50 ML IV SCH ×2 (05:44→12:22)
--- NOTE | 2017-02-14 06:10 | NUR ---
CLOSING NOTES PT. RESTING QUIETLY, VITAL SIGNS STABLE, NO DISTRESS NOTED, IV ACCESS PATENT AND BENIGN, PT. REMAINS NPO.
--- NOTE | 2017-02-14 07:45 | NUR ---
AM ASSESSMENT RECEIVED PT IN BED RESTING COMFORTABLY. DENIES ANY PAIN OR SOB AT THIS TIME. VITALS STABLE NOTIN ACUTE DISTRESS. PT IS NPO FOR USG ABDOMEN. CALL LIGHT WITHIN REACH. WILL CONTINUE TO MONITOR
[2017-02-14 07:50] VITALS: BP 111/75; PULSE 68; RESP 18; TEMP 97.8; O2SAT 95
[2017-02-14] MEDS: methylPREDNISolone SOD SUCC 40 MG/ML VIAL IVP SCH (09:00)
[2017-02-14] MEDS: PANTOPRAZOLE SODIUM 40 MG TAB PO SCH (09:00)
[2017-02-14] MEDS: NYSTATIN 500,000 UNITS/5 ML UDC PO SCH ×2 (09:00→14:15)
[2017-02-14] MEDS: DOCUSATE SODIUM 100 MG CAPSULE PO SCH (09:00)
[2017-02-14] MEDS: TAMSULOSIN HCL 0.4 MG CAP PO SCH (09:00)
[2017-02-14] MEDS: FLUTICASONE PROPIONATE 50 mCg/SPRAY 16 GM NS SCH (09:15)
--- NOTE | 2017-02-14 09:17 | NUR ---
MEDS DUE MEDS GIVEN ORDERED. PT STABLE EATING BREAKFAST.NOT IN ACUTE DISTRESS
--- NOTE | 2017-02-14 10:30 | NUR ---
PT WALKED WITH PT PT STABLE NOT IN ACUTE DISTRESS. DENIES C/O OF PAIN OR SOB. WILL CONTINUE TO MONITOR
--- NOTE | 2017-02-14 12:25 | NUR ---
ROUNDS DUE MEDS GIVEN ORDERED. NOT IN ACUTE DISTRESS. DENIES ANY PAIN OR SOB.
[2017-02-14 12:39] VITALS: BP 119/66; PULSE 87; RESP 20; TEMP 97.6; O2SAT 94
--- NOTE | 2017-02-14 13:19 | NUR ---
DC PLANNING: Met with the pt. and his at bedside regarding discharging the pt. to home v. home hospice. The pt. spouse stated " They are not ready for hospice service yet. She spoke with the hospice nurse yesterday and got all of the info. She will contact the hospice when ready." Dr. Brooke and Dr. Davis were with the pt. and spouse at bedside for discharge. The pt. is to see dr. Davis (PMD) next week. and to f/u with out patient rehab after seeing dr. Davis next week. No home health f/u ordered. The pt stated that he already has oxygen concentrator and portable O2, and FWW at home.
--- NOTE | 2017-02-14 13:30 | NUR ---
MD VISIT SEEN BY DR ALFONSO RECEIVED NEW ORDER FOR DISCHARGE CARRIED OUT
[2017-02-14 14:49] VITALS: BP 137/82; PULSE 87; RESP 18; TEMP 97; O2SAT 95
[2017-02-14] MEDS ORDERED: L.RH1CAP PO (15:17)
--- NOTE | 2017-02-14 15:40 | NUR ---
PHYSICAL THERAPY CO-SIGN The Physical Therapy Progress Notes documented by Ultra Sound Technician have been reviewed. Pt IS SHOWING PROGRESS WITH POC; CONT PER TX PLAN Reviewed/Co-Signed by: Allyn Hawkins PT Documentation Done by: JAKE PANTOJA DREDGE OPERATOR Addendum: 02/14/17 at 1540 by Allyn Hawkins PT Amended: Links added.
--- NOTE | 2017-02-14 15:50 | NUR ---
D/C Patient Patient given medication reconciliation form and D/C instructions. Exit Care provided. Patient verbalized understanding. MD discussed with patient the results and treatment provided. Ambulatory with steady gait for discharge to home. Patient in stable condition, ID band removed. IV catheter removed, intact and dressing applied, no active bleeding.. Patient educated on pain management. denies any pain or sob.All belongings sent with patient.PT went home in private car with fabricio. pt's has oxygen in the car. pt applied oxygen in car.
--- NOTE | 2017-02-16 13:35 | NUR ---
Discharge Follow Up Phone Call: [facility] called and spoke with pt ([phone]). Pt states that he is doing "ok"; pt's prescriptions have been filled; there are no questions regarding discharge or medication instructions; pt has a follow up appointment scheduled with PCP, Dr. Davis, next week. Pt did not express any other needs or concerns at this time and denied the need for additional follow up at this time. No further follow up phone calls required at this time.
--- NOTE | 2017-02-18 10:51 | NUR ---
DISCHARGE PLANNING Received call from [facility] faxed requested EMR [phone] who will resume home health.
== END 2017-02-14 15:50 | disposition home or self-care (01) | DRG 871 ==
LOC: SED 08:58 → SIC 10:09 → STU 02-11 18:40
PROVIDERS: ADMIT Internal Medicine; ATTEND Internal Medicine
PROC: 5A1945Z Respiratory Ventilation, 24-96 Consecutive Hours (ICD-10-PCS; principal; 2017-02-09)
PROC: 0BH17EZ Insertion of Endotracheal Airway into Trachea, Via Natural or Artificial Opening (ICD-10-PCS; 2017-02-09)
DX: A41.9 Sepsis, unspecified organism (principal); J96.20 Acute and chronic respiratory failure, unspecified whether with hypoxia or hypercapnia; J18.9 Pneumonia, unspecified organism; J44.1 Chronic obstructive pulmonary disease with (acute) exacerbation; J44.0 Chronic obstructive pulmonary disease with (acute) lower respiratory infection; E78.5 Hyperlipidemia, unspecified; F32.9 Major depressive disorder, single episode, unspecified; G89.4 Chronic pain syndrome; Z96.652 Presence of left artificial knee joint; F17.200 Nicotine dependence, unspecified, uncomplicated; Z96.89 Presence of other specified functional implants; Z90.49 Acquired absence of other specified parts of digestive tract; Z87.81 Personal history of (healed) traumatic fracture; Z79.899 Other long term (current) drug therapy
CPT/HCPCS: 36415; 36600; 71010; 71020-TC; 76700-TC; 80048; 80053; 81000-TC; 82803-TC; 83605; 83690-TC; 83735-TC; 84484; 85007; 85025; 85027; 85610-TC; 85730-TC; 87040-TC; 87070-TC; 87081; 87086; 87205-TC; 93005; 94002; 94003; 94640; 94760; 96365; 96375; 97110-GP; 97116-GP; 97530-GP; 99291; C9113; J0456; J1030; J1650; J2060; J2543; J2704; J2930; J3490; J7030; J7040; J7050

== ENCOUNTER 2017-06-19 19:36 | Emergency (ER) | payer OTHER, MEDICARE ==
[~2017-06-19] VITALS: Ht 182.9 cm; Wt 81.6 kg
[2017-06-19 19:36] VITALS: BP_SYST 159
[~2017-06-19 19:36] MED LIST changes: -DULO20CA PO; +ESOM20CA38 PO; -ESOM40CA53 PO; +L.RH1CAP PO; -PRED20TA PO
[2017-06-19 21:03] LABS: BASOPHILS # (AUTO) 0.4 K/uL (0.0-0.2); BASOPHILS % (AUTO) 3.1 % (0.0-2.0); EOSINOPHILS # (AUTO) 0.1 K/uL (0.0-0.4); EOSINOPHILS % (AUTO) 0.4 % (0.0-4.0); HEMATOCRIT 36.8 % (36-54); HEMOGLOBIN 12.4 g/dL (14.0-18.0); LYMPHOCYTES # (AUTO) 2.3 K/uL (1.0-5.5); LYMPHOCYTES % (AUTO) 15.7 % (20.5-51.5); MEAN CORPUSCULAR HEMOGLOBIN 31 pg (27-31); MEAN CORPUSCULAR HGB CONC 34 % (32-36); MEAN CORPUSCULAR VOLUME 92 fL (79.0-98.0); MONOCYTES # (AUTO) 0.8 K/uL (0.0-1.0); MONOCYTES % (AUTO) 5.6 % (1.7-9.3); NEUTROPHILS # (AUTO) 10.9 K/uL (1.8-7.7); NEUTROPHILS % (AUTO) 75.2 % (40.0-70.0); PLATELET COUNT (AUTO) 215 K/uL (130-430); RED BLOOD CELL COUNT(AUTO) 3.98 MIL/uL (4.2-6.2); RED CELL DISTRIBUTION WIDTH 14.3 % (9.0-15.0); WHITE BLOOD COUNT (AUTO) 14.5 K/uL (4.8-10.8)
[2017-06-19 21:08] LABS: ABG TOTAL HEMOGLOBIN 12.8 G/dL (12.0-18.0); BLOOD GAS COHb% 0.3 % (0.5-1.5); BLOOD GAS HHB 4.7 % (0.0-6.0); BLOOD GAS PH 7.402 (7.350-7.450); BLOOD O2Hb% 94.7 % (94.0-97.0)
[2017-06-19 21:16] LABS: ANION GAP 5 (5-15); CALCIUM 8.6 mg/dL (8.4-11.0); CHLORIDE 105 mmol/L (98-107); CREATININE 0.79 mg/dL (0.55-1.30); GLUCOSE 116 mg/dL (70-99); POTASSIUM 4.5 mmol/L (3.5-5.1); SODIUM SERUM 141 mmol/L (136-145); UREA NITROGEN, BLOOD 16 mg/dL (8-21)
[2017-06-19 21:21] LABS: ALANINE AMINOTRANSFERASE 21 U/L (12-78); ALBUMIN 3.4 g/dL (3.4-4.8); ASPARTATE AMINOTRANSFERASE 16 U/L (10-37); TOTAL BILIRUBIN 0.3 mg/dL (0.0-1.0)
[2017-06-19 23:00] VITALS: BP_SYST 146
== END 2017-06-19 23:00 | disposition home or self-care (01) ==
LOC: MERGE 19:36 → SED 19:36
DX: J44.9 Chronic obstructive pulmonary disease, unspecified (principal); I50.9 Heart failure, unspecified; I10 Essential (primary) hypertension; Z96.651 Presence of right artificial knee joint; Z79.899 Other long term (current) drug therapy
CPT/HCPCS: 36415; 36600; 71010; 74000-TC; 80053; 82803-TC; 85025; 99285

== ENCOUNTER 2017-07-29 17:07 | Inpatient (IN) | payer OTHER, MEDICARE ==
[~2017-07-29] VITALS: Ht 182.9 cm; Wt 90.7 kg
[2017-07-29 17:07] VITALS: BP_SYST 141
--- NOTE | 2017-07-29 17:07 | NUR ---
Pt sitting in tripod position, c/o shortness of breath. Breathing tx in progress by paramedics. RT at bedside.
--- NOTE | 2017-07-29 17:07 | NUR ---
BIB sq [address] from home. Placed in room 01. Placed on pen maker, blood pressure machine and pulse oximeter. To gown for exam. Side rails up. Report given to MUKESH Ricketts.
--- NOTE | 2017-07-29 17:12 | NUR ---
Dr. Miguel at bedside for evaluation
[2017-07-29] MEDS ORDERED: ALBUTEROL SULFATE 0.083% 2.5 MG/3 ML VIAL.NEB INH ONE ×2 (17:15→17:21)
[2017-07-29] MEDS ORDERED: methylPREDNISolone SOD SUCC/PF 62.5 MG/ML VIAL IVP ONE ×2 (17:15→17:45)
[2017-07-29] MEDS ORDERED: LEVOFLOXACIN 500 MG/D5W 100 ML IV ONE (17:15)
[2017-07-29] MEDS ORDERED: IPRATROPIUM BROM 0.5 MG/2.5 ML VIAL.NEB (ATROVENT) INH ONE (17:21)
--- NOTE | 2017-07-29 17:35 | NUR ---
# 20 gauge angiocath placed to right wrist. Use of asceptic technique. Opsite placed over site. Blood return noted. Blood for lab drawn from site. Flushed with 10 cc of normal saline. No evidence of infiltration noted. Patient tolerated well.
--- NOTE | 2017-07-29 17:36 | NUR ---
chest xay done at bedside.
[2017-07-29 17:45] LABS: BASOPHILS # (AUTO) 0.1 K/uL (0.0-0.2); BASOPHILS % (AUTO) 0.5 % (0.0-2.0); EOSINOPHILS # (AUTO) 0.1 K/uL (0.0-0.4); EOSINOPHILS % (AUTO) 1.1 % (0.0-4.0); HEMATOCRIT 36.7 % (36-54); HEMOGLOBIN 12.3 g/dL (14.0-18.0); LYMPHOCYTES % (AUTO) 15.5 % (20.5-51.5); MEAN CORPUSCULAR HEMOGLOBIN 31 pg (27-31); MEAN CORPUSCULAR HGB CONC 34 % (32-36); MEAN CORPUSCULAR VOLUME 92 fL (79.0-98.0); MONOCYTES # (AUTO) 0.7 K/uL (0.0-1.0); MONOCYTES % (AUTO) 5.6 % (1.7-9.3); NEUTROPHILS % (AUTO) 77.3 % (40.0-70.0); PLATELET COUNT (AUTO) 266 K/uL (130-430); RED BLOOD CELL COUNT(AUTO) 4.01 MIL/uL (4.2-6.2); RED CELL DISTRIBUTION WIDTH 13.7 % (9.0-15.0); WHITE BLOOD COUNT (AUTO) 12.9 K/uL (4.8-10.8)
[2017-07-29 17:48] LABS: PROTHROMBIN TIME 10.4 SECS (9.5-12.5)
[2017-07-29 17:49] LABS: ANION GAP 8 (5-15); CALCIUM 8.5 mg/dL (8.4-11.0); CHLORIDE 102 mmol/L (98-107); GLUCOSE 101 mg/dL (70-99); POTASSIUM 3.7 mmol/L (3.5-5.1); SODIUM SERUM 140 mmol/L (136-145); UREA NITROGEN, BLOOD 9 mg/dL (8-21)
[2017-07-29 17:54] LABS: ALANINE AMINOTRANSFERASE 19 U/L (12-78); ALBUMIN 3.1 g/dL (3.4-4.8); ASPARTATE AMINOTRANSFERASE 32 U/L (10-37); TOTAL BILIRUBIN 0.4 mg/dL (0.0-1.0)
--- NOTE | 2017-07-29 17:59 | NUR ---
shortness of breath some improved after treatment. RT called for another breathing treatment.
[2017-07-29] MEDS ORDERED: LevALBUTEROL HCL 1.25 MG/0.5 ML *CONC.* VIAL.NEB (XOPENEX CONC.) INH ONE ×2 (18:14→18:15)
[2017-07-29] MEDS ORDERED: POTASSIUM CHLORIDE 20 MEQ TAB.PRT.SR PO ONE (18:15)
[2017-07-29] MEDS ORDERED: MAGNESIUM SULFATE 4 GM in D5W 250 ML IV ONE (18:15)
[2017-07-29] MEDS ORDERED: MAGNESIUM SULFATE 100 ML IV ONE (18:43)
[2017-07-29] MEDS ORDERED: MAGNESIUM SULFATE 50 ML IV ONE ×2 (18:45)
--- NOTE | 2017-07-29 18:54 | NUR ---
Patient will be admitted to [facility]. Admitted to tele unit. Will go to room 117a. Belongings list completed. Summary report printed. Report will be given at bedside.
--- NOTE | 2017-07-29 19:07 | NUR ---
ADMISSION NOTE Received patient from ER via marie, received report from Vannessa MAYORGA. Patient admitted with diagnosis of COPD EXACERBATION. Patient oriented to hospital routine, call light, toileting and safety-patient verbalized understanding.
[2017-07-29 19:18] VITALS: BP_SYST 140
[2017-07-29] MEDS ORDERED: LORazepam 1 MG TABLET PO SCH (20:30)
[2017-07-29] MEDS ORDERED: ONDANSETRON HCL 4 MG/2 ML VIAL IVP PRN (20:30)
[2017-07-29] MEDS ORDERED: MORPHINE 4 MG/ML INJ. SYRINGE IVP PRN (20:30)
[2017-07-29] MEDS ORDERED: traMADol HCL HCL 50 MG TABLET (ULTRAM) PO PRN (20:30)
[2017-07-29] MEDS ORDERED: ACETAMINOPHEN 325 MG TABLET PO PRN (20:30)
[2017-07-29 20:39] VITALS: BP_SYST 140
[2017-07-29] MEDS: IPRATROPIUM/ALBUTEROL SULFATE 3 ML AMPUL.NEB INH PRN (20:48)
[2017-07-29] MEDS ORDERED: DULoxetine HCL 30 MG CAPSULE.DR (CYMBALTA) PO SCH (21:00)
[2017-07-29] MEDS: ZOLPIDEM TARTRATE 5 MG TABLET PO SCH (21:13)
[2017-07-29] MEDS: PANTOPRAZOLE SODIUM 40 MG TAB PO SCH (21:13)
[2017-07-29] MEDS: MIRTAZAPINE 15 MG TABLET PO SCH (21:13)
[2017-07-29] MEDS: FAMOTIDINE 20 MG TABLET PO SCH (21:13)
[2017-07-29] MEDS: DULoxetine HCL 30 MG CAPSULE.DR (CYMBALTA) PO SCH (21:13)
[2017-07-29] MEDS: SIMVASTATIN 20 MG TABLET PO SCH (21:48)
--- NOTE | 2017-07-29 22:00 | NUR ---
Rounds Notes Patient on bed, awake, alert and verbally responsive watching TV at this time. No sign of respiratory distress and no complain of pain or discomfort noted. Will continue to monitor. Call light within reach.
[2017-07-29] MEDS: methylPREDNISolone SOD SUCC/PF 62.5 MG/ML VIAL IVP SCH (22:15)
[2017-07-29] MEDS: IPRATROPIUM/ALBUTEROL SULFATE 3 ML AMPUL.NEB INH SCH (23:28)
--- NOTE | 2017-07-30 00:06 | NUR ---
Rounds Note Patient on bed sleeping noted. No sign of respiratory distress and no complain of pain or discomfort noted. Will continue to monitor. Call light within reach.
[2017-07-30 00:45] VITALS: BP_SYST 150
--- NOTE | 2017-07-30 01:28 | NUR ---
Consult Called Reason for consultation: COPD Consulting Physician: Dr. Ceron (Steven Rucker applications engineer) Surface Supervisor Person who was notified: Lynne Morgan by Dr. Brooke
--- NOTE | 2017-07-30 02:35 | NUR ---
Rounds Note Patient on bed sleeping noted with no sign of respiratory distress and no complain of pain noted. Will continue to monitor. Call light within reach.
[2017-07-30] MEDS: IPRATROPIUM/ALBUTEROL SULFATE 3 ML AMPUL.NEB INH SCH ×5 (03:21→20:14)
--- NOTE | 2017-07-30 04:15 | NUR ---
Rounds Notes Patient on bed awake, alert and verbally responsive watching TV noted. No sign of respiratory distress and patient stated he felt much better than yesterday. Complained of headache, given pain medication as ordered. Will continue to monitor. All needs attended and call light within reach.
[2017-07-30 04:58] VITALS: BP_SYST 177
[2017-07-30] MEDS: methylPREDNISolone SOD SUCC/PF 62.5 MG/ML VIAL IVP SCH ×3 (05:29→21:19)
--- NOTE | 2017-07-30 06:19 | NUR ---
Notes Patient on bed, sleeping noted. No sign of respiratory distress and no complain of pain noted. All needs attended by staff. Call light within reach.
--- NOTE | 2017-07-30 07:30 | NUR ---
Initial notes: patient on bed awake, alert and oriented. On breathing treatment. Stable. Call light within reach. Safety measures in placed. Report received from bedside.
[2017-07-30] MEDS ORDERED: NON-FORMULARY MEDICATION (Esomeprazole Mag Trihydrate (Nexium) 40 MG) PO SCH (09:00)
[2017-07-30] MEDS ORDERED: PRAVASTATIN SODIUM 20 MG TABLET (PRAVACHOL) PO SCH (09:00)
--- NOTE | 2017-07-30 09:35 | NUR ---
Agitation: Patient observed having agitation stating "He's not good, air not going inside.". Breathing treatment already given earlier. Checked O2sAT level 94%. Informed Dr. Wagner.
[2017-07-30] MEDS: PANTOPRAZOLE SODIUM 40 MG TAB PO SCH ×2 (09:43→20:18)
[2017-07-30] MEDS: LORazepam 1 MG TABLET PO PRN ×2 (09:43→18:35)
[2017-07-30] MEDS: FAMOTIDINE 20 MG TABLET PO SCH ×2 (09:43→20:17)
[2017-07-30] MEDS: DULoxetine HCL 30 MG CAPSULE.DR (CYMBALTA) PO SCH ×2 (09:43→20:18)
--- NOTE | 2017-07-30 09:48 | NUR ---
CT chest without contrast: Patient transferred via W/C to radiology for CTscan.
[2017-07-30] MEDS ORDERED: MORPHINE 2 MG/ML INJ. SYRINGE IVP PRN (10:15)
--- NOTE | 2017-07-30 10:17 | NUR ---
Pt back in his room.
[2017-07-30 12:03] VITALS: BP_SYST 100
--- NOTE | 2017-07-30 12:03 | NUR ---
Verified Consult Called Dr. Reyes's office @ and spoke with Melodie to verify if was informed about consult. Dr. Ram field technical support consultant and is already aware of consult. Addendum: 07/30/17 at 1429 by Napoleon Nj LVN Charted on wrong patient.
--- NOTE | 2017-07-30 12:30 | NUR ---
rounds: patient on bed eating lunch. family at bedside.
--- NOTE | 2017-07-30 14:00 | NUR ---
rounds: patient ambulatory with walker went to the toilet. no distress noted.
[2017-07-30 15:54] VITALS: BP_SYST 136
--- NOTE | 2017-07-30 18:38 | NUR ---
Anxiety: patient having anxiety and verbalized not feeling well. Observed becoming restless. Ativan P.o. given.
--- NOTE | 2017-07-30 18:54 | NUR ---
Closing notes: Patient sitting on bed. Watching T.V. Calmed down. Needs attended. Call light within reach. Report will be given to rn shift mgr.
[2017-07-30 19:05] VITALS: BP_SYST 146
--- NOTE | 2017-07-30 19:05 | NUR ---
Initial Notes Received patient tin bed, awake alert oriented. No s/s of any distress noted. IV noted to R hand no blood return and dry blood noted. All extremities are strong, ambulatory with walker. Discussed plan of care with patient and verbalized understanding. Call light in reach, will cont to monitor.
[2017-07-30] MEDS: DOCUSATE SODIUM 250 MG CAPSULE PO SCH (20:17)
[2017-07-30] MEDS: SIMVASTATIN 20 MG TABLET PO SCH (20:18)
[2017-07-30] MEDS: MIRTAZAPINE 15 MG TABLET PO SCH (20:18)
[2017-07-30] MEDS: ZOLPIDEM TARTRATE 5 MG TABLET PO SCH (21:19)
--- NOTE | 2017-07-30 22:10 | NUR ---
Refused IV insertion Patient refused to have IV inserted. "I wanna sleep", "Tomorrow OK" he said. Explained risk and benefits but patient refused. Will try to attempt again.
--- NOTE | 2017-07-31 | NUR ---
REFUSAL pt stated that he doesn't want to be disturbed when he is sleeping. MUKESH Ott is aware.
--- NOTE | 2017-07-31 00:38 | NUR ---
Received report from Tru MAYORGA, taking over patient for continuity of care. Patient sleeping at this time. No s/s of pain noted. Will continue to monitor.
[2017-07-31] MEDS: IPRATROPIUM/ALBUTEROL SULFATE 3 ML AMPUL.NEB INH SCH ×5 (01:16→22:59)
--- NOTE | 2017-07-31 02:05 | NUR ---
Notes Patient denies pain at this time. No SOB noted. IV site patent, flushes well. Patient repositioned self in bed. Call light within reach. Will continue to monitor.
[2017-07-31 03:39] VITALS: BP_SYST 124
--- NOTE | 2017-07-31 04:11 | NUR ---
Notes Patient sleeping at this time. No SOB noted. No s/s of pain noted. IV site patent, flushes well. Call light within reach. Will continue to monitor.
[2017-07-31] MEDS: methylPREDNISolone SOD SUCC/PF 62.5 MG/ML VIAL IVP SCH ×3 (05:23→20:53)
--- NOTE | 2017-07-31 06:37 | NUR ---
Closing Notes Patient sleeping at this time. No s/s of pain noted. IV site patent, flushes well. Goals met. Call light within reach. Will continue to monitor.
[2017-07-31 07:30] LABS: BASOPHILS % (AUTO) 0.2 % (0.0-2.0); EOSINOPHILS % (AUTO) 0.1 % (0.0-4.0); HEMOGLOBIN 11.3 g/dL (14.0-18.0); LYMPHOCYTES # (AUTO) 1.3 K/uL (1.0-5.5); LYMPHOCYTES % (AUTO) 7.2 % (20.5-51.5); MEAN CORPUSCULAR HEMOGLOBIN 32 pg (27-31); MEAN CORPUSCULAR HGB CONC 34 % (32-36); MEAN CORPUSCULAR VOLUME 92 fL (79.0-98.0); MONOCYTES % (AUTO) 5.5 % (1.7-9.3); NEUTROPHILS # (AUTO) 15.8 K/uL (1.8-7.7); PLATELET COUNT (AUTO) 286 K/uL (130-430); RED BLOOD CELL COUNT(AUTO) 3.58 MIL/uL (4.2-6.2); RED CELL DISTRIBUTION WIDTH 14.1 % (9.0-15.0); WHITE BLOOD COUNT (AUTO) 18.1 K/uL (4.8-10.8)
[2017-07-31 08:00] VITALS: BP_SYST 122
[2017-07-31 08:13] LABS: ANION GAP 6 (5-15); CALCIUM 8.8 mg/dL (8.4-11.0); CHLORIDE 104 mmol/L (98-107); CREATININE 0.94 mg/dL (0.55-1.30); GLUCOSE 103 mg/dL (70-99); POTASSIUM 4.3 mmol/L (3.5-5.1); SODIUM SERUM 140 mmol/L (136-145); UREA NITROGEN, BLOOD 17 mg/dL (8-21)
[2017-07-31] MEDS: PANTOPRAZOLE SODIUM 40 MG TAB PO SCH ×2 (09:54→20:45)
[2017-07-31] MEDS: LACTOBACILLUS RHAMNOSUS GG 1 CAP CAPSULE PO SCH ×2 (09:55→20:45)
[2017-07-31] MEDS: DOCUSATE SODIUM 250 MG CAPSULE PO SCH ×2 (09:55→20:45)
[2017-07-31] MEDS: DULoxetine HCL 30 MG CAPSULE.DR (CYMBALTA) PO SCH ×2 (09:57→20:45)
[2017-07-31] MEDS: FAMOTIDINE 20 MG TABLET PO SCH ×2 (09:58→20:45)
[2017-07-31] MEDS: guaiFENesin ER 600 MG TAB PO SCH ×2 (15:00→20:45)
[2017-07-31 16:00] VITALS: BP_SYST 126
[2017-07-31] MEDS ORDERED: guaiFENesin ER 600 MG TAB PO ONE (16:15)
[2017-07-31] MEDS ORDERED: LORATADINE 10 MG TABLET PO ONE (16:15)
[2017-07-31] MEDS ORDERED: AZITHROMYCIN 500 MG in NS 250 ML IV SCH (17:00)
[2017-07-31] MEDS: PIPERACILLIN/TAZO 3.375/DEX-IS 50 ML IV SCH ×2 (18:00→23:20)
[2017-07-31] MEDS: MONTELUKAST 10 MG TABLET PO SCH (18:45)
--- NOTE | 2017-07-31 19:35 | NUR ---
OPENING NOTE Patient received from day shift nurse. Patient is awake, ambulatory with walker on 2L o2 nasal cannula. Patient appears uncooperative and stubborn, refusing bed alarm at this time but is educated on safety precautions and stated "Yes, I know how to use the telephone and call for help. I'm fine." Offered to clean up patient's side table and tray but patient refused at this time. No s/s of acute distress. Call light to right hand. Will continue to monitor.
[2017-07-31] MEDS: ZOLPIDEM TARTRATE 5 MG TABLET PO SCH (20:44)
[2017-07-31] MEDS: SIMVASTATIN 20 MG TABLET PO SCH (20:44)
[2017-07-31] MEDS: MIRTAZAPINE 15 MG TABLET PO SCH (20:53)
[2017-07-31 21:02] VITALS: BP_SYST 135
--- NOTE | 2017-07-31 21:08 | NUR ---
Pt. awake,alert,cooperative, call light in reach,adm, meds as ordered, O2 per NC. resp. Tx, unable to restart ID access incoming nurse made aware of it, fall precautions,
[2017-07-31 23:41] VITALS: BP_SYST 106
--- NOTE | 2017-07-31 23:41 | NUR ---
REQUESTED SANDWICH Due IV abx administered as ordered. Patient requested turkey sandwich; able to tolerate. Assisted patient to bathroom to void; tolerated well with SOB noted on 2L o2 nasal cannula o2 sat at 93%. Patient refusing bed alarm at this time but was instructed on how to use call light for needs. Will continue to monitor.
--- NOTE | 2017-08-01 00:44 | NUR ---
RESTING Patient appears to be resting with eyes closed. Respirations are even and unlabored with visible chest rise and fall. Safety and fall precautions in place. Bed alarm on. Call light to right hand. Will continue to monitor.
--- NOTE | 2017-08-01 02:42 | NUR ---
BATHROOM Assisted patient to bathroom to void; tolerated well. No complaints of any pain or discomfort. Safety and fall precautions in place. Assisted back by GLEN Rangel. Will continue to monitor.
[2017-08-01] MEDS: IPRATROPIUM/ALBUTEROL SULFATE 3 ML AMPUL.NEB INH SCH ×6 (03:00→23:00)
[2017-08-01 04:45] VITALS: BP_SYST 138
--- NOTE | 2017-08-01 04:55 | NUR ---
RN ROUNDS Patient is resting quietly in bed with eyes closed. Breathing is even and unlabored with visible chest rise and fall. No s/s of acute distress. Safety and fall precautions in place. Call light to right hand. Will continue to monitor.
[2017-08-01] MEDS: methylPREDNISolone SOD SUCC/PF 62.5 MG/ML VIAL IVP SCH ×2 (05:15→23:48)
[2017-08-01] MEDS: PIPERACILLIN/TAZO 3.375/DEX-IS 50 ML IV SCH (05:15)
--- NOTE | 2017-08-01 07:30 | NUR ---
CLOSING Patient is stable. Patient and bedside report endorsed to day shift nurse.
[2017-08-01 07:51] LABS: ANION GAP 5 (5-15); CALCIUM 8.6 mg/dL (8.4-11.0); CHLORIDE 102 mmol/L (98-107); CREATININE 0.86 mg/dL (0.55-1.30); GLUCOSE 115 mg/dL (70-99); POTASSIUM 4.2 mmol/L (3.5-5.1); SODIUM SERUM 138 mmol/L (136-145); UREA NITROGEN, BLOOD 17 mg/dL (8-21)
[2017-08-01 08:12] VITALS: BP_SYST 132
[2017-08-01 08:14] LABS: EOSINOPHILS % (AUTO) 0.1 % (0.0-4.0); HEMATOCRIT 34.8 % (36-54); HEMOGLOBIN 11.6 g/dL (14.0-18.0); LYMPHOCYTES # (AUTO) 0.8 K/uL (1.0-5.5); LYMPHOCYTES % (AUTO) 5.6 % (20.5-51.5); MEAN CORPUSCULAR HEMOGLOBIN 31 pg (27-31); MEAN CORPUSCULAR HGB CONC 33 % (32-36); MEAN CORPUSCULAR VOLUME 93 fL (79.0-98.0); MONOCYTES # (AUTO) 0.5 K/uL (0.0-1.0); MONOCYTES % (AUTO) 3.8 % (1.7-9.3); NEUTROPHILS # (AUTO) 12.2 K/uL (1.8-7.7); NEUTROPHILS % (AUTO) 90.5 % (40.0-70.0); PLATELET COUNT (AUTO) 291 K/uL (130-430); RED BLOOD CELL COUNT(AUTO) 3.74 MIL/uL (4.2-6.2)
--- NOTE | 2017-08-01 08:14 | NUR ---
OPENING SHIFT REPORT Pt is ALOCx 4 and eating breakfast, no s/s of SOB or discomfort, no c/o pain. Pt reports last BM on Sat and request additional prune juice which was brought to him. IV saline locked, O2 at 2 L via NC. Safety and fall precautions in place with bed in lowest position, bed alarm on and call light within reach. Pt verbalized agreement to use call light for any needed assistance.
--- NOTE | 2017-08-01 08:17 | NUR ---
Nutrition Update Mele Scale 18 noted. Pt admitted for COPD Exacerbation Diet: Mechanical Soft diet BMI: 27.1 kg/m2 RD to follow per nutrition care standards.
[2017-08-01 08:33] LABS: WHITE BLOOD COUNT (AUTO) 13.5 K/uL (4.8-10.8)
[2017-08-01] MEDS: guaiFENesin ER 600 MG TAB PO SCH ×2 (09:07→19:46)
[2017-08-01] MEDS: PANTOPRAZOLE SODIUM 40 MG TAB PO SCH ×2 (09:08→19:46)
[2017-08-01] MEDS: DOCUSATE SODIUM 250 MG CAPSULE PO SCH ×2 (09:08→23:46)
[2017-08-01] MEDS: LORATADINE 10 MG TABLET PO SCH (09:08)
[2017-08-01] MEDS: DULoxetine HCL 30 MG CAPSULE.DR (CYMBALTA) PO SCH ×2 (09:08→19:48)
[2017-08-01] MEDS: FAMOTIDINE 20 MG TABLET PO SCH ×2 (09:08→19:48)
[2017-08-01] MEDS: LACTOBACILLUS RHAMNOSUS GG 1 CAP CAPSULE PO SCH ×2 (09:08→19:47)
--- NOTE | 2017-08-01 10:05 | NUR ---
Pt resting in bed w/ no s/s of sob or discomfort. O2 connected via NC and running at 2L, bed checked and remains in lowest position with the bed alarm on and call light within reach
[2017-08-01] MEDS: CEFEPIME 1 GM in D5W 50 ML IV SCH ×3 (10:31→23:50)
[2017-08-01 12:20] VITALS: BP_SYST 138
--- NOTE | 2017-08-01 12:30 | NUR ---
Rounding Note Pt found resting in bed, unhappy with lunch tray so I got him more pepper and cranberry juice and refilled the ice water for him. Pt refused to have bed alarm set but bed was left in lowest position and the call light was within reach. Pt agreed to use call light for any assistance.
--- NOTE | 2017-08-01 14:35 | NUR ---
Rounding note and restroom assistance Helped pt return from restroom. left him sitting in bed with the bed in lowest position and call light within reach. Refilled his water and he agreed to continue to use the call light for assistance
--- NOTE | 2017-08-01 16:05 | NUR ---
Rounding Note Pt found in restroom and I helped him back to bed. Pt had mild shortness of breath but regained normal breathing pattern within approximately 1-2 min. Left pt in bed with call light within reach and bed in lowest position. Pt continues to refuse to allow bed alarm to be engaged.
[2017-08-01 16:35] VITALS: BP_SYST 133
--- NOTE | 2017-08-01 17:35 | NUR ---
Rounding Note Pt found in bed. Pt unhappy that I only have his singulair. He insists that all evening meds should be given at 1700 and insisted in talking to the charge nurse. I notified charge and she will talk with him as soon as she is available to do so.
[2017-08-01] MEDS: MONTELUKAST 10 MG TABLET PO SCH (17:48)
--- NOTE | 2017-08-01 19:35 | NUR ---
Closing Note Pt was not happy about situation with medicine this evening but I introduced him to the NOC nurse during report. Bed was left in lowest position with call light within reach.
[2017-08-01] MEDS: SIMVASTATIN 20 MG TABLET PO SCH (19:47)
[2017-08-01] MEDS: MIRTAZAPINE 15 MG TABLET PO SCH (19:48)
[2017-08-01] MEDS: ZOLPIDEM TARTRATE 5 MG TABLET PO SCH (21:43)
--- NOTE | 2017-08-01 22:00 | NUR ---
awake,alert,oriented x4. pt is upset about everything according to him has not been "right" "all day long" iv line was out at this time when this nurse tried to fix it and pt tried to help. H became very upset when he pulled the the plastic needle out accidentally. no acute resp. distress.pt cooperative and talkataive afterwards.
[2017-08-02] VITALS (7 sets, daily range): BP systolic 124–138
--- NOTE | 2017-08-02 | NUR ---
Continuation of care Report was endorsed by night nurse who is going home for the evening. Patient appears to be resting with eyes closed no signs of distress breathing is equal and non labored. Safety precautions in place. Call light with patient . will continue to monitor.
--- NOTE | 2017-08-02 02:30 | NUR ---
Rn rounding Patient appears to be resting with eyes closed visible chest rise and fall no signs of distress. Breathing is equal and non labored. Patient has call light with. Safety precautions in place. Will continue to monitor.
[2017-08-02] MEDS: IPRATROPIUM/ALBUTEROL SULFATE 3 ML AMPUL.NEB INH SCH ×6 (03:38→23:00)
--- NOTE | 2017-08-02 04:00 | NUR ---
RN rounding Patient receiving Breathing treatment. Patient shows no signs of distress breathing is equal and non labored. Patient educated cushion maker light for assistance , call light is with patient. Safety precautions in place. Will continue to monitor.
--- NOTE | 2017-08-02 06:42 | NUR ---
RN closing note Patient appears to be resting with eyes closed no signs of distress breathing is equal and non labored. Patient has safety precautions in place. call light is with patient. Patient is stable at this time. will endorse repot to oncoming day nurse at bed side.
--- NOTE | 2017-08-02 07:50 | NUR ---
Initial Note Received pt in bed, no s/s of distress or sob noted, pt has no c/o pain at this time, pt in stable condition, pt aaox4, verbal, fall risk. IV catheter patent, no signs of infection or infiltration noted. Bed at lowest position, call light within reach, will continue to monitor pt for any changes.
[2017-08-02] MEDS: DOCUSATE SODIUM 250 MG CAPSULE PO SCH ×2 (08:32→18:12)
[2017-08-02] MEDS: DULoxetine HCL 30 MG CAPSULE.DR (CYMBALTA) PO SCH ×2 (08:32→18:13)
[2017-08-02] MEDS: LORATADINE 10 MG TABLET PO SCH (08:32)
[2017-08-02] MEDS: LACTOBACILLUS RHAMNOSUS GG 1 CAP CAPSULE PO SCH ×2 (08:33→18:12)
[2017-08-02] MEDS: guaiFENesin ER 600 MG TAB PO SCH ×2 (08:33→18:13)
[2017-08-02] MEDS: FAMOTIDINE 20 MG TABLET PO SCH ×2 (08:33→18:14)
[2017-08-02] MEDS: PANTOPRAZOLE SODIUM 40 MG TAB PO SCH ×2 (08:33→21:26)
[2017-08-02] MEDS: methylPREDNISolone SOD SUCC/PF 62.5 MG/ML VIAL IVP SCH ×2 (08:34→21:27)
--- NOTE | 2017-08-02 10:20 | NUR ---
ROUNDS PT IN BED, NO S/S OF DISTRESS OR SOB NOTED, PT HAS NO C/O PAIN AT THIS TIME, PT IN STABLE CONDITION, PT RESTING COMFORTABLY, WILL CONTINUE TO MONITOR PT FOR ANY CHANGES.
[2017-08-02] MEDS: ENOXAPARIN SODIUM 40 MG/0.4 ML SYRINGE SUBCUT SCH (11:27)
--- NOTE | 2017-08-02 14:35 | NUR ---
DISCHARGE PLANNING DC Planning order for LTAC evaluation. Faxed DC Planning order to [place] [facility] [phone]. Notified [facility] Liaison Will follow up.
[2017-08-02] MEDS: MONTELUKAST 10 MG TABLET PO SCH (17:08)
--- NOTE | 2017-08-02 17:29 | NUR ---
MD CALL Dr Brooke paged, awaiting call back in regards to changing the medications to 5 pm instead of 9 pm as ordered. Spoke with Dr Brooke and he gave an order to change it.
[2017-08-02] MEDS ORDERED: COMMUNICATION ORDER XX ONE (17:45)
[2017-08-02] MEDS: SIMVASTATIN 20 MG TABLET PO SCH (18:12)
[2017-08-02] MEDS: MIRTAZAPINE 15 MG TABLET PO SCH (18:13)
[2017-08-02] MEDS ORDERED: guaiFENesin ER 600 MG TAB PO ONE (18:15)
--- NOTE | 2017-08-02 18:29 | NUR ---
Closing Note Pt in bed, no s/s of distress or sob noted, pt has no c/o pain at this time, pt in stable condition, pt aaox4, verbal, fall risk. IV catheter patent, no signs of infection or infiltration noted. Bed at lowest position, call light within reach, will endorse care of pt to incoming nurse.
[2017-08-02] MEDS: CEFEPIME 1 GM in D5W 50 ML IV SCH (21:23)
[2017-08-02] MEDS: ZOLPIDEM TARTRATE 5 MG TABLET PO SCH (21:25)
[2017-08-03] VITALS (7 sets, daily range): BP systolic 140–173
--- NOTE | 2017-08-03 | NUR ---
Medication Patients scheduled medication given please see EMAR. Patient is laying in bed with no signs of distress breathing is equal and non labored. Patient has safety precautions in place. Patient educated to use call light for assistance call light is with patient. Will continue to monitor. Addendum: 08/04/17 at 0100 by Sara Bustos RN time stamp for note is for 2139
--- NOTE | 2017-08-03 00:55 | NUR ---
REPORT RECEIVED FROM REGISTRY NURSE AT BEDSIDE.
[2017-08-03] MEDS: IPRATROPIUM/ALBUTEROL SULFATE 3 ML AMPUL.NEB INH PRN (01:13)
--- NOTE | 2017-08-03 02:00 | NUR ---
190 Report received from MUKESH Manriquez, for continuity of patient care. Patient awake in no acute distress with call light in reach. 1999 Lungs diminished, but clear. O2 at 2 liters via NC with sat 95%. Saline lock intact and patent right hand. Resting comfortably in no acute distress watching TV and call light in reach. 2124 Patient medicated with Ambien for sleep. Patient states he had a BM this evening. Otherwise patient resting comfortably with call light in reach. 2229 Patient sleeping quietly in no acute distress with call light in reach. 0045 Report given to MUKESH Valenzuela, for continuity of patient care due to change in assignment. Patient resting quietly in no acute distress with call light in reach. No problems noted so far during this shift.
[2017-08-03] MEDS: IPRATROPIUM/ALBUTEROL SULFATE 3 ML AMPUL.NEB INH SCH ×5 (03:00→19:00)
--- NOTE | 2017-08-03 04:00 | NUR ---
Rounds Pt sleeping, chest rising and falling, no s/s of respiratory distress. Safety and fall precautions in place. Call light w/in reach. Will continue to monitor.
[2017-08-03] MEDS: DULoxetine HCL 30 MG CAPSULE.DR (CYMBALTA) PO SCH ×2 (04:57→17:27)
[2017-08-03] MEDS: DOCUSATE SODIUM 250 MG CAPSULE PO SCH ×2 (04:57→17:26)
[2017-08-03] MEDS: FAMOTIDINE 20 MG TABLET PO SCH ×2 (04:57→17:26)
[2017-08-03] MEDS: LACTOBACILLUS RHAMNOSUS GG 1 CAP CAPSULE PO SCH ×2 (04:57→17:26)
[2017-08-03] MEDS: guaiFENesin ER 600 MG TAB PO SCH ×2 (04:58→17:27)
--- NOTE | 2017-08-03 07:40 | NUR ---
Closing All needs met. Endorsed care to day nurse at bedside. Safety precautions in place.
--- NOTE | 2017-08-03 08:00 | NUR ---
NOTE PT SITTING UP IN BED EATING HIS BREAKFAST. PT HAS HIS O2 AT 2L/NC AT THIS TIME. PT AMBULATES TO RESTROOM WITH HIS FWW AND GAIT STEADY AT THIS TIME. NO SOB/RESP DISTRESS OR PAIN/DISCOMFORT NOTED AT THIS TIME. IV IN RIGHT HAND SALINE LOCKED AT THIS TIME. CALL LIGHT WITHIN REACH.
[2017-08-03] MEDS: CEFEPIME 1 GM in D5W 50 ML IV SCH ×2 (08:57→21:40)
[2017-08-03] MEDS: methylPREDNISolone SOD SUCC/PF 62.5 MG/ML VIAL IVP SCH ×2 (08:57→21:40)
[2017-08-03] MEDS: PANTOPRAZOLE SODIUM 40 MG TAB PO SCH ×2 (08:57→21:42)
[2017-08-03] MEDS: ENOXAPARIN SODIUM 40 MG/0.4 ML SYRINGE SUBCUT SCH (08:57)
[2017-08-03] MEDS: LORATADINE 10 MG TABLET PO SCH (08:57)
--- NOTE | 2017-08-03 10:00 | NUR ---
NOTE PT RESTING IN BED WATCHING TELEVISION, NO NEEDS NOTED AT THIS TIME. CALL LIGHT WITHIN REACH.
--- NOTE | 2017-08-03 10:17 | NUR ---
NOTE DR CRABTREE ON THE FLOOR TO ASSESS PT AT THIS TIME.
--- NOTE | 2017-08-03 10:41 | NUR ---
DISCHARGE PLANNING Spoke with [facility] who will evaluate patient today. Chanelle was made aware of evaluation order to transfer once accepted. Will follow up. Called and spoke with patient Clarisa Sanchez [phone] phone rang with no voice mail to leave message. Patient has been on home health service with [facility] [phone]. Addendum: 08/03/17 at 1527 by Davida HOLLIS Spoke with [facility] who came to evaluate patient today. Chanelle stated [facility] is pending decision and will notify [facility] of facility decision. Will continue to follow up.
--- NOTE | 2017-08-03 12:35 | NUR ---
note DR ALFONSO ON THE FLOOR AND ASSESSMENT WAS COMPLETED, ORDERS WRITTEN. PT SITTING UP IN BED EATING HIS LUNCH, HAS O2 ON AT 2L/NC AT THIS TIME. PT KEEPS PULLING HIS O2 TUBING ON AND OFF - PER HIS NEEDS - PT STATES. CALL LIGHT WITHIN REACH.
[2017-08-03] MEDS: LORazepam 1 MG TABLET PO PRN (12:53)
--- NOTE | 2017-08-03 14:50 | NUR ---
NOTE PT RESTING IN BED. PT'S AT BEDSIDE THIS AFTERNOON. PT HAS PERIODS OF CONFUSION AND FORGETFULNESS, PT'S AT BEDSIDE ALSO NOTICED THIS. THIS IS NOT NEW FOR PT, PER PT'S . NO NEEDS NOTED. CALL LIGHT WITHIN REACH. FEELINGS OF ANXIETY HAVE SUBSIDED SINCE PT WAS GIVEN ATIVAN PO AROUND 1305.
--- NOTE | 2017-08-03 15:02 | NUR ---
CONSULT PSYCH DEPRESSION DR RAYO [phone] S/W [facility] OFF[facility] @ [phone]
--- NOTE | 2017-08-03 15:45 | NUR ---
PHYSICAL THERAPY CO-SIGN The Physical Therapy Progress Notes documented by Load Out Worker have been reviewed. Reviewed/Co-Signed by: Janeth Dee, PT Documentation Done by: Jonel Diaz PTA I concur with the documentation of this AIR BRAKE WORKER. Plan: continue PT as per plan of care if he remains in this hospital. Addendum: 08/04/17 at 0908 by Janeth Dee PT Amended: Links added.
--- NOTE | 2017-08-03 16:30 | NUR ---
NOTE PT DROWSY AND SLEEPY AT THIS TIME, WHEN ASKED IF PT STILL HAS PAIN PUMP AND NERVE STIMULATOR, PT VERBALISES "YES" AT THIS TIME. SPEECH AND HEARING CLINIC DIRECTOR ASKED TO VERIFY THIS INFORMATION AT THIS TIME. PT FELL BACK TO SLEEP. CALL LIGHT WITHIN REACH.
[2017-08-03] MEDS: MONTELUKAST 10 MG TABLET PO SCH (17:26)
[2017-08-03] MEDS: SIMVASTATIN 20 MG TABLET PO SCH (17:26)
[2017-08-03] MEDS: MIRTAZAPINE 15 MG TABLET PO SCH (17:27)
--- NOTE | 2017-08-03 18:15 | NUR ---
NOTE PT WAS WOKEN UP AND GIVEN ALL HIS 1700 AND 1800 MEDICATIONS. PT SWALLOWED THEM WITH NO DIFFICULTY AT THIS TIME. NO SOB/RESP DISTRESS OR PAIN/DISCOMFORT WAS NOTED AT THIS TIME. PT'S IV IN RIGHT HAND INTACT AND PATENT AT THIS TIME. PT STILL DROWSY AND SLEEPY. DENIES ANY NEEDS AT THIS TIME. CALL LIGHT WITHIN REACH.
--- NOTE | 2017-08-03 19:12 | NUR ---
Initial Notes Received patient in bed, resting with eyes closed. Easily awaken with verbal stimuli.No s/s of any distress noted. On o2 @ 2L via n/c. IV noted to R hand g18, no infiltrate and with good blood return. All extremities are strong, BRP. Discussed plan of care with patient and verbalized understanding. Call light in reach, will cont to monitor.
--- NOTE | 2017-08-03 20:00 | NUR ---
ENDORSED CARE TO Jojo RN ENDORSED ALL CARE TO JOJO. PATIENT IS RESTING IN BED AT THIS TIME. NO S/S OF DISTRESS NOTED.
--- NOTE | 2017-08-03 20:23 | NUR ---
Continuation of care Report was endorsed by delilah at bedside. Vital signs are stable at this time. Patient is laying in bed with no signs of distress breathing is equal and non labored. Patient has safety precautions in place. Will continue to monitor.
--- NOTE | 2017-08-03 22:00 | NUR ---
RN rounding delayed charting due to patient care. Patient appears to be resting with eyes closed no signs of distress breathing is equal and non labored.Patient has safety precautions in place .Call light is with patient. Will continue to monitor.
[2017-08-04] VITALS (7 sets, daily range): BP systolic 130–162
[2017-08-04] MEDS: IPRATROPIUM/ALBUTEROL SULFATE 3 ML AMPUL.NEB INH SCH ×6 (00:19→23:00)
[2017-08-04] MEDS: ZOLPIDEM TARTRATE 5 MG TABLET PO SCH ×2 (00:26→21:20)
--- NOTE | 2017-08-04 00:32 | NUR ---
RN rounding Patient assisted to bathroom and back to bed. Patient became short of breath RT called to give breathing treatment. Patient received breathing treatment and is breathing non labored now. Patient requesting some for sleep medicated as ordered please see EMAR. Educated documentation writer light for assistance. Patient has call light with him. Will continue to monitor.
--- NOTE | 2017-08-04 02:31 | NUR ---
RN rounding Patient appears to be resting with eyes closed no sign of distress breathing is equal and non labored.Patient has safety precautions in place. Call light is with patient, Will continue to monitor
[2017-08-04] MEDS: DULoxetine HCL 30 MG CAPSULE.DR (CYMBALTA) PO SCH ×2 (04:25→18:34)
[2017-08-04] MEDS: DOCUSATE SODIUM 250 MG CAPSULE PO SCH ×2 (04:25→18:34)
[2017-08-04] MEDS: LACTOBACILLUS RHAMNOSUS GG 1 CAP CAPSULE PO SCH ×2 (04:25→18:34)
[2017-08-04] MEDS: guaiFENesin ER 600 MG TAB PO SCH ×2 (04:25→18:33)
[2017-08-04] MEDS: FAMOTIDINE 20 MG TABLET PO SCH ×2 (04:30→18:34)
--- NOTE | 2017-08-04 04:35 | NUR ---
SCHEDULED MEDICATION patients scheduled medication given please see EMAR. Patient is awake and sitting up in bed. Breathing is equal and non labored. Provided patient with a snack tolerated well. Safety precautions in place. Educated patient to use call light for assistance. Call light is with patient. Will continue to monitor.
--- NOTE | 2017-08-04 06:39 | NUR ---
RN rounding Patient appears to be resting with eyes closed no signs of distress breathing is equal and non labored. Patient has safety precautions in place.Patient has call light with him. Patient is stable at this time. Will endorse report to oncoming day nurse at bed side.
--- NOTE | 2017-08-04 08:42 | NUR ---
OPENING NOTE RECEIVED PT AOOX4 IN NO ACUTE DISTRESS. TOLERATING O2 2L VIA NC WELL, NO SOB NOTED WHILE AT REST. NOTED TO HAVE SOME WHEEZING UPON EXPIRATION, PT TO HAVE RT TX THIS AM. BLE NOTED TO HAVE MULTIPLE SCABS, PT STATES THESE ARE FROM [employer] AT HIS HOME. [facility] PLACED TO OPEN SCABS PER PT'S REQUEST. DISCUSSED POC FOR THE DAY WITH PT INCLUDING POSSIBLE TRANSFER TO LTAC. PT VERBALIZED UNDERSTANDING. BED IN LOWEST POSITION WITH SIDE RAILS UP X2, BED ALARM ON AND CALL LIGHT WITHIN REACH. ENCOURAGED PT TO USE CALL LIGHT FOR ASSISTANCE. VERBALIZED UNDERSTANDING.
[2017-08-04] MEDS: PANTOPRAZOLE SODIUM 40 MG TAB PO SCH ×2 (10:20→21:20)
[2017-08-04] MEDS: LORATADINE 10 MG TABLET PO SCH (10:20)
[2017-08-04] MEDS: ENOXAPARIN SODIUM 40 MG/0.4 ML SYRINGE SUBCUT SCH ×2 (10:21→10:26)
--- NOTE | 2017-08-04 11:18 | NUR ---
DISCHARGE PLANNING Spoke with [facility] liabryan patient was clinically denied. CM made aware and will follow up with MD on discharge plan.
[2017-08-04] MEDS: CEFEPIME 1 GM in D5W 50 ML IV SCH ×2 (11:40→20:56)
[2017-08-04] MEDS: methylPREDNISolone SOD SUCC/PF 62.5 MG/ML VIAL IVP SCH (11:41)
--- NOTE | 2017-08-04 12:00 | NUR ---
PHYSICAL THERAPY CO-SIGN The Physical Therapy Progress Notes documented by Manager Account Management have been reviewed. Reviewed/Co-Signed by: Janeth Dee, PT Documentation Done by: Jonel Diaz PTA I concur with the documentation of this FUSE COILER. Plan: continue PT as per plan of care if she remains in this hospital. Addendum: 08/04/17 at 1407 by Janeth Dee PT Amended: Links added.
--- NOTE | 2017-08-04 12:25 | NUR ---
Dietitian Recommendations * Recommend continuing mechanical soft diet per LP, RD Please refer to Nutrition Assessment for details.
--- NOTE | 2017-08-04 12:27 | NUR ---
DISCHARGE PLANNING DC order to SNF. Called patient desirae Sanchez [phone] left voice message requesting return call back. Meanwhile; patient previously placed at [facility], faxed referral [phone]. will follow up. Addendum: 08/04/17 at 1402 by Davida HOLLIS Received call from patient Clarisa who stated patient was not happy at [facility], DCP discussed other SNF choices and Clarisa requested placement at [facility]. Faxed SNF referral to [facility] [phone]. Will follow up on bed availability. Addendum: 08/04/17 at 1417 by Davida Kelly DP spoke with Bernabe in admitting at [facility] confirmed referral was received and currently under DON review. DCP will follow up. Addendum: 08/04/17 at 1430 by Bobby Quinones RN >> Met with Frieda in nursing unit, she gave bed assignment #[id number] at [facility]. At this time pt. does not want to any rehab but to home. Cm is waiting for his final decision after speaking with his .
--- NOTE | 2017-08-04 12:57 | NUR ---
ROUNDS PT SITTING UP IN BED WATCHING TV AT THIS TIME. AT BEDSIDE. PT DENIES ANY PAIN OR SOB WHILE AT REST, TOLERATING O2 2L VIA NC. WAITING FOR PLACEMENT AT LTAC. CALL LIGHT WITHIN REACH. WILL CONTINUE TO MONITOR
--- NOTE | 2017-08-04 14:45 | NUR ---
ROUNDS PT SITTING UP IN BED SPEAKING WITH NANDINI DENTAL INTERN. NO SOB AT THIS TIME. CALL LIGHT WITHIN REACH. WILL CONTINUE TO MONITOR
--- NOTE | 2017-08-04 15:27 | NUR ---
DC Planning: Notified dr. Brooke that pt. refused dc to any snf or rehab but to go home with home health. Dr. Ceron made aware and clleared pt. to go home too. Dr. Brooke ordered pt may go home today with home health with current cefepime 1 gram q 12 hr IV ABX for 5 days. pt and his spouse,Clarisa notified and agreed with POC. Per Clarisa, pt. was in service with [facility], has oxygen concentrator and portable O2 and WC. Clarisa stated pt has DMEs he needs nothing else. -- Kate alcantara aware. Addendum: 08/04/17 at 1611 by Davida HOLLIS faxed home health referral to [facility] [phone]. Will follow up. Addendum: 08/04/17 at 1621 by Davida HOLLIS Spoke with Tata at [facility], unable to accept patient case due to no nursing staff available to see patient. Faxed home -health referral to [facility] [phone]. Will follow up. Addendum: 08/04/17 at 1734 by Davida Kelly DP Ryanne with Kiya at [facility] is accepted patient case and is currently working on arranging nursing staff and IV medication. Kiya advised DEP to follow up in AM.
[2017-08-04] MEDS: MIRTAZAPINE 15 MG TABLET PO SCH (18:33)
[2017-08-04] MEDS: SIMVASTATIN 20 MG TABLET PO SCH (18:34)
[2017-08-04] MEDS: MONTELUKAST 10 MG TABLET PO SCH (18:34)
--- NOTE | 2017-08-04 18:56 | NUR ---
CLOSING NOTE PT SITTING UP IN BED WATCHING TV IN NO ACUTE DISTRESS. TOLERATING O2 2L VIA NC, NO SOB NOTED AT THIS TIME. DISCUSSED WITH PT PLAN TO STAY OVERNIGHT SO THAT HOME HEALTH RN CAN BE ARRANGED TO ADMINISTER HER ANTIBIOTICS. PT AND VERBALIZED UNDERSTANDING. CALL LIGHT WITHIN REACH. PT ENCOURAGED TO USE CALL LIGHT FOR ASSISTANCE. VERBALIZED UNDERSTANDING. WILL ENDORSE TO ACCOUNTANT ASSISTANT.
--- NOTE | 2017-08-04 19:55 | NUR ---
Note Received pt in bed, A/A/O X4, no s/s of distress or sob noted, pt has no c/o pain at this time, pt in stable condition, able to make needs known. Pt is a fall risk. IV saline lock to the rt forearm, patent. No signs of infection or infiltration noted. Bed at lowest position, side rails up x3, call light within reach, will continue to monitor pt for any changes. Safety measures in progress.
[2017-08-04] MEDS: PREDNISONE 20 MG TABLET PO SCH (21:20)
--- NOTE | 2017-08-04 21:23 | NUR ---
MEDS; AMBIEN 10MG PO ADMINISTERED FOR INSOMNIA. SCHEDULED PO MEDS ADMINISTERED. PT TOLERATED MEDS WELL.
--- NOTE | 2017-08-04 23:00 | NUR ---
NOTES; PT IS IN BED WATCHING TV. NO APPARENT DISTRESS NOTED. DENIES ANY PAIN AT THIS TIME. SAFETY MEASURES IN PROGRESS.
[2017-08-05] VITALS (7 sets, daily range): BP systolic 145–156
--- NOTE | 2017-08-05 02:00 | NUR ---
Notes; Pt appears to be resting quietly, eyes closed no sign of distress breathing is equal and non labored.Pt has safety precautions in place. Call light is with patient, Will continue to monitor
[2017-08-05] MEDS: IPRATROPIUM/ALBUTEROL SULFATE 3 ML AMPUL.NEB INH SCH ×4 (03:00→14:55)
--- NOTE | 2017-08-05 04:00 | NUR ---
Notes; Pt appears to be resting quietly, eyes closed no sign of distress noted. Breathing is equal and non labored. Pt has safety precautions in place. Call light is with patient, Will continue to monitor
[2017-08-05] MEDS: guaiFENesin ER 600 MG TAB PO SCH ×2 (05:26→17:05)
[2017-08-05] MEDS: LACTOBACILLUS RHAMNOSUS GG 1 CAP CAPSULE PO SCH ×2 (05:26→17:05)
[2017-08-05] MEDS: DOCUSATE SODIUM 250 MG CAPSULE PO SCH ×2 (05:26→17:00)
[2017-08-05] MEDS: DULoxetine HCL 30 MG CAPSULE.DR (CYMBALTA) PO SCH ×2 (05:26→17:05)
[2017-08-05] MEDS: FAMOTIDINE 20 MG TABLET PO SCH ×2 (05:26→17:06)
--- NOTE | 2017-08-05 05:29 | NUR ---
NOTES; SCHEDULED PO MEDS ADMINISTERED. PT TOLERATED MEDS WELL.
--- NOTE | 2017-08-05 06:55 | NUR ---
NOTES; APPEARED TO BE SLEEPING, EYES CLOSED. EASILY AROUSED. NO ACUTE DISTRESS NOTED. ALL NEEDS ATTENDED. SAFETY MEASURES MAINTAINED.
--- NOTE | 2017-08-05 08:00 | NUR ---
AM Initial Notes Pt aaox4 feeling frustrated and irritated about not being discharged last night. Complaints of back pain. O2 via nasal canula @ 2L in place. No signs of sob, difficulty breathing or distress noted. IV to right forearm #20g saline locked patent and flushing. Multiple scabs noted to arms and legs. Re-educated about fall and safety precautions. Refused to have bed alarm armed when awake. Encouraged to call for assistance. Call light within reach. Will monitor.
--- NOTE | 2017-08-05 08:30 | NUR ---
DISCHARGE PLANNING Received call from intake dept at [facility] who stated family declined and requested [facility]. Called and spoke with patient Clarisa Choi [phone] who was updated and agreeable with change in community health. Addendum: 08/05/17 at 1033 by Davida Kelly DP spoke with Jocelin in intake dept at [facility] who will return call back if nursing staff available to see patient navjot. Meanwhile; Faxed IV medication order to [phone]. Will follow up. Addendum: 08/05/17 at 1235 by Davida Kelly DP Met with patient at bedside regarding discharge plan. Patient understood and is agreeable. DCP answered all patient questions and concerns pertaining to his discharge. Patient requested to be discharged before 5pm and understood MD needed give ok to be given evening medication early for early discharge. [facility] will keep patient updated with MD decision. Meanwhile; Spoke with Lidia in intake dept at [facility] [phone] who was speaking with patient Clarisa regarding out of pocket cost for IV medication and supplies. $30 co-pay for medication and $45 per day for supplies. Lidia stated did not want to pay out of pocket cost and asked for alternative. [facility] made CM aware who will ask MD for alternative. DCP will follow up. Addendum: 08/05/17 at 1324 by Bobby Quinones RN >> Notified dr. Brooke per Kate's notes above. Md order okay to give Cefepime IV at 4 pm prior to discharge. Pt. wants to go home before [address] Brooke will be in to write oral abx prescription to go home with. -- KATHLEEN Fishman and pt. made aware of DCP. Patient's spouse, Clarisa was notified via her cell phone. She agreed and thanked for accommodating her request. Addendum: 08/05/17 at 1445 by Davida HOLLIS Met with patient at bedside who was updated with change in discharge plan home with no IV medication. Patient understood and agreeable still requested to be discharged prior to 5pm. RN and charge nurse were made aware. Called [facility] spoke with Lidia who was made aware to cancel IV medication order. Called [facility] spoke with Jocelin who was made aware to cancel home health IV medication order. Called [phone] who will follow up with Tata in intake dept if able to resume home health. Addendum: 08/05/17 at 1509 by Davida HOLLIS spoke with February in intake dept at [facility] who stated able to resume home health visits and will call patient/family to make visit arrangements to see patient on Wednesday 08/08. Addendum: 08/05/17 at 1535 by Davida HOLLIS Per patient refusing home health at this time. Spoke with February in intake dept at [facility] patient has been discharged from their services since 02/2017 per patient request and is unable to staff visits at this time.
[2017-08-05] MEDS: ENOXAPARIN SODIUM 40 MG/0.4 ML SYRINGE SUBCUT SCH (09:00)
[2017-08-05] MEDS: PREDNISONE 20 MG TABLET PO SCH (09:42)
[2017-08-05] MEDS: LORATADINE 10 MG TABLET PO SCH (09:42)
[2017-08-05] MEDS: PANTOPRAZOLE SODIUM 40 MG TAB PO SCH (09:42)
--- NOTE | 2017-08-05 10:00 | NUR ---
Rounds Pt complaints of back pain. Informed RN for medication administration. No distress noted.
[2017-08-05] MEDS: CEFEPIME 1 GM in D5W 50 ML IV SCH ×2 (10:14→15:56)
[2017-08-05] MEDS ORDERED: MAG-AL HYDROX/SIMETH 30 ML UDC PO ONE (10:15)
[2017-08-05] MEDS ORDERED: MAG-AL HYDROX/SIMETH 30 ML UDC PO PRN (10:15)
--- NOTE | 2017-08-05 11:44 | NUR ---
Education about Discharge Educated patient about importance of antibiotic therapy before discharge. Pt refused to have his evening dose and wants to go home. Pt very upset and refused to listen to education. Charge nurse, Bonny white.
--- NOTE | 2017-08-05 13:50 | NUR ---
PHYSICAL THERAPY CO-SIGN The Physical Therapy Progress Notes documented by Court Deputy have been reviewed. Reviewed/Co-Signed by: Rin Etienne PT Documentation Done by:Bety XIE PTA I CONCUR WITH THE DOCUMENTATION PER THE ABOVE MAGENTO DEVELOPER. Addendum: 08/05/17 at 1351 by Rin Etienne PT Amended: Links added.
--- NOTE | 2017-08-05 14:30 | NUR ---
Rounds Pt awake resting in bed and wants a breathing tx. No distress noted. Kept comfortable. Encouraged to call for assistance. Will monitor.
--- NOTE | 2017-08-05 15:59 | NUR ---
IV ABX- MAXIPIME DOSE GIVEN AT THIS TIME ORDERED. PT WANTS TO GO HOME EARLY.
[2017-08-05] MEDS ORDERED: AMOX-426 PO (16:17)
[2017-08-05] MEDS ORDERED: FAMO20TA8 PO (16:18)
[2017-08-05] MEDS ORDERED: MONT10TA22 (16:18)
[2017-08-05] MEDS ORDERED: LORA10TA7 PO (16:18)
[2017-08-05] MEDS ORDERED: PRED20TA PO (16:19)
[2017-08-05] MEDS: SIMVASTATIN 20 MG TABLET PO SCH (17:05)
[2017-08-05] MEDS: MONTELUKAST 10 MG TABLET PO SCH (17:05)
--- NOTE | 2017-08-05 18:05 | NUR ---
Discharge Discharge patient with . Transitional care instructions, handout and prescription for Augmentin, Singulair, Pepcid, Claritin, and Prednisone explained and given. D/C IV and dressing applied. Vital signs stable. Pt left floor via wheelchair to private vehicle. No distress noted.
[2017-08-05] MEDS ORDERED: MIRTAZAPINE 15 MG TABLET PO SCH (21:00)
== END 2017-08-05 18:05 | disposition home health service (06) | DRG 871 ==
LOC: SED 17:07 → STU 18:18 → SMU 07-30 13:03
PROVIDERS: ADMIT Internal Medicine; ATTEND Internal Medicine
DX: A41.9 Sepsis, unspecified organism (principal); J96.21 Acute and chronic respiratory failure with hypoxia; J84.9 Interstitial pulmonary disease, unspecified; J15.6 Pneumonia due to other Gram-negative bacteria; J44.0 Chronic obstructive pulmonary disease with (acute) lower respiratory infection; Z99.81 Dependence on supplemental oxygen; F33.2 Major depressive disorder, recurrent severe without psychotic features; J44.1 Chronic obstructive pulmonary disease with (acute) exacerbation; E78.5 Hyperlipidemia, unspecified; F17.210 Nicotine dependence, cigarettes, uncomplicated; G89.4 Chronic pain syndrome; F41.9 Anxiety disorder, unspecified
CPT/HCPCS: 36415; 71010; 71250-TC; 80048; 80053; 83605; 83880; 84484; 85025; 85610-TC; 87040-TC; 87070-TC; 87205-TC; 93005; 94640; 94760; 96365; 96367; 96375; 97116-GP; 97530-GP; 99285; J0456; J0692; J1650; J1956; J2270; J2543; J2930; J3475; J7050; J7060; J7512

== ENCOUNTER 2017-08-22 18:55 | Inpatient (IN) | payer OTHER, MEDICARE ==
[~2017-08-22] VITALS: Ht 182.9 cm; Wt 89.8 kg
[~2017-08-22 18:55] MED LIST changes: +AMOX-426 PO; +FAMO20TA8 PO; -LEVO500T20 PO; +LORA10TA7 PO; +MONT10TA22; +PRED20TA PO
[2017-08-22 19:00] VITALS: BP_SYST 133
[2017-08-22] MEDS ORDERED: ASPIRIN 81 MG TAB.CHEW PO ONE (19:15)
[2017-08-22 19:30] LABS: BASOPHILS # (AUTO) 0.3 K/uL (0.0-0.2); BASOPHILS % (AUTO) 1.4 % (0.0-2.0); EOSINOPHILS # (AUTO) 0.1 K/uL (0.0-0.4); EOSINOPHILS % (AUTO) 0.7 % (0.0-4.0); HEMATOCRIT 40.8 % (36-54); HEMOGLOBIN 13.3 g/dL (14.0-18.0); LYMPHOCYTES # (AUTO) 1.3 K/uL (1.0-5.5); LYMPHOCYTES % (AUTO) 7.2 % (20.5-51.5); MEAN CORPUSCULAR HEMOGLOBIN 30 pg (27-31); MEAN CORPUSCULAR HGB CONC 33 % (32-36); MEAN CORPUSCULAR VOLUME 92 fL (79.0-98.0); MONOCYTES # (AUTO) 0.9 K/uL (0.0-1.0); MONOCYTES % (AUTO) 5.1 % (1.7-9.3); NEUTROPHILS # (AUTO) 15.3 K/uL (1.8-7.7); PLATELET COUNT (AUTO) 239 K/uL (130-430); RED BLOOD CELL COUNT(AUTO) 4.45 MIL/uL (4.2-6.2); RED CELL DISTRIBUTION WIDTH 14.1 % (9.0-15.0); WHITE BLOOD COUNT (AUTO) 17.9 K/uL (4.8-10.8)
[2017-08-22 19:46] LABS: ANION GAP 7 (5-15); CALCIUM 8.9 mg/dL (8.4-11.0); CHLORIDE 103 mmol/L (98-107); GLUCOSE 94 mg/dL (70-99); POTASSIUM 3.6 mmol/L (3.5-5.1); SODIUM SERUM 141 mmol/L (136-145); UREA NITROGEN, BLOOD 11 mg/dL (8-21)
[2017-08-22 19:51] LABS: PROTHROMBIN TIME 10.2 SECS (9.5-12.5)
[2017-08-22 19:52] LABS: ALANINE AMINOTRANSFERASE 19 U/L (12-78); ALBUMIN 3.4 g/dL (3.4-4.8); ASPARTATE AMINOTRANSFERASE 17 U/L (10-37); TOTAL BILIRUBIN 0.4 mg/dL (0.0-1.0)
[2017-08-22 20:01] LABS: NEUTROPHILS % (AUTO) 85.6 % (40.0-70.0)
[2017-08-22] MEDS ORDERED: methylPREDNISolone SOD SUCC/PF 62.5 MG/ML VIAL IM ONE (20:15)
[2017-08-22] MEDS ORDERED: IPRATROPIUM/ALBUTEROL SULFATE 3 ML AMPUL.NEB INH ONE (20:15)
[2017-08-22] MEDS ORDERED: VANCOMYCIN HCL 1,000 MG in NS 250 ML IV ONE (20:30)
[2017-08-22] MEDS ORDERED: PIPERACILLIN/TAZO 3.375 GM in NS 50 ML IV ONE (20:30)
[2017-08-22] MEDS ORDERED: PIPERACILLIN/TAZOBACTAM 3.375 GM/VIAL (ZOSYN) IV ONE (21:18)
[2017-08-22] MEDS ORDERED: VANCOMYCIN HCL 1000 MG/VIAL IV ONE (21:20)
[2017-08-22] MEDS ORDERED: NACL 0.9% 1,000 ML IV ONE ×2 (22:15)
[2017-08-22] MEDS ORDERED: NS 500 ML IV ONE (22:15)
[2017-08-22] MEDS ORDERED: guaiFENesin ER 600 MG TAB PO ONE (22:30)
[2017-08-22] MEDS ORDERED: KETOROLAC TROMETHAMINE 30 MG VIAL IVP ONE (22:45)
[2017-08-22] MEDS ORDERED: guaiFENesin ER 600 MG TAB ONE (23:04)
[2017-08-22] MEDS ORDERED: IPRATROPIUM/ALBUTEROL SULFATE 3 ML AMPUL.NEB INH PRN (23:15)
[2017-08-22 23:35] VITALS: BP_SYST 141
[2017-08-22 23:42] VITALS: BP_SYST 141
[2017-08-23] VITALS (7 sets, daily range): BP systolic 135–159
[2017-08-23] MEDS ORDERED: ZOLPIDEM TARTRATE 5 MG TABLET PO ONE (00:30)
[2017-08-23] MEDS ORDERED: MORPHINE 2 MG/ML INJ. SYRINGE IVP PRN (00:30)
[2017-08-23] MEDS ORDERED: IPRATROPIUM/ALBUTEROL SULFATE 120 PUFFS/4 GM INH INH PRN (05:00)
[2017-08-23] MEDS ORDERED: ALBUTEROL SULFATE 0.083% 2.5 MG/3 ML VIAL.NEB INH PRN (05:00)
[2017-08-23] MEDS ORDERED: LORazepam 1 MG TABLET PO PRN (05:00)
[2017-08-23] MEDS: methylPREDNISolone SOD SUCC/PF 62.5 MG/ML VIAL IVP SCH ×3 (06:12→23:07)
[2017-08-23] MEDS ORDERED: FAMOTIDINE 20 MG TABLET PO SCH (09:00)
[2017-08-23] MEDS ORDERED: PRAVASTATIN SODIUM 20 MG TABLET (PRAVACHOL) PO SCH (09:00)
[2017-08-23] MEDS ORDERED: DULoxetine HCL 30 MG CAPSULE.DR (CYMBALTA) PO SCH ×2 (09:00)
[2017-08-23] MEDS: LORATADINE 10 MG TABLET PO SCH (10:05)
[2017-08-23] MEDS: traMADol HCL HCL 50 MG TABLET (ULTRAM) PO PRN (10:06)
[2017-08-23] MEDS: DULoxetine HCL 30 MG CAPSULE.DR (CYMBALTA) PO SCH ×2 (10:06→21:09)
[2017-08-23] MEDS: FLUTICASONE/VILANTEROL 1 EACH BLST.W.DEV INH SCH (10:18)
[2017-08-23] MEDS: LEVOFLOXACIN 500 MG/D5W 100 ML IV SCH (10:18)
[2017-08-23] MEDS: IPRATROPIUM BROM 0.5 MG/2.5 ML VIAL.NEB (ATROVENT) INH SCH ×2 (14:09→19:05)
[2017-08-23] MEDS: ALBUTEROL SULFATE 0.083% 2.5 MG/3 ML VIAL.NEB INH SCH ×2 (14:10→19:05)
[2017-08-23] MEDS ORDERED: MIRTAZAPINE 15 MG TABLET PO SCH (18:00)
[2017-08-23] MEDS: HYDROcodone/ACETAMIN 5-325 MG TAB (NORCO/ VICODIN) PO PRN (18:25)
[2017-08-23] MEDS: FAMOTIDINE 20 MG TABLET PO SCH (21:00)
[2017-08-23] MEDS: MONTELUKAST 10 MG TABLET PO SCH (21:09)
[2017-08-23] MEDS: ATORVASTATIN 10 MG TABLET PO SCH (21:09)
[2017-08-23] MEDS: MIRTAZAPINE 15 MG TABLET PO SCH (21:09)
[2017-08-23] MEDS: TEMAZEPAM 7.5 MG CAPSULE PO PRN (23:23)
[2017-08-24] MEDS: ALBUTEROL SULFATE 0.083% 2.5 MG/3 ML VIAL.NEB INH SCH ×4 (01:00→19:53)
[2017-08-24] MEDS: IPRATROPIUM BROM 0.5 MG/2.5 ML VIAL.NEB (ATROVENT) INH SCH ×4 (01:00→19:54)
[2017-08-24 04:45] VITALS: BP_SYST 159
[2017-08-24] MEDS: methylPREDNISolone SOD SUCC/PF 62.5 MG/ML VIAL IVP SCH ×3 (06:12→21:43)
[2017-08-24 07:11] LABS: ANION GAP 7 (5-15); CALCIUM 9.2 mg/dL (8.4-11.0); CHLORIDE 108 mmol/L (98-107); CREATININE 0.81 mg/dL (0.55-1.30); GLUCOSE 145 mg/dL (70-99); SODIUM SERUM 146 mmol/L (136-145); UREA NITROGEN, BLOOD 16 mg/dL (8-21)
[2017-08-24 07:21] LABS: BASOPHILS % (AUTO) 0.1 % (0.0-2.0); HEMOGLOBIN 12.9 g/dL (14.0-18.0); LYMPHOCYTES # (AUTO) 0.6 K/uL (1.0-5.5); LYMPHOCYTES % (AUTO) 2.7 % (20.5-51.5); MEAN CORPUSCULAR HEMOGLOBIN 30 pg (27-31); MEAN CORPUSCULAR HGB CONC 33 % (32-36); MEAN CORPUSCULAR VOLUME 92 fL (79.0-98.0); MONOCYTES # (AUTO) 0.5 K/uL (0.0-1.0); MONOCYTES % (AUTO) 2.1 % (1.7-9.3); NEUTROPHILS # (AUTO) 21.5 K/uL (1.8-7.7); NEUTROPHILS % (AUTO) 95.1 % (40.0-70.0); PLATELET COUNT (AUTO) 224 K/uL (130-430); RED BLOOD CELL COUNT(AUTO) 4.25 MIL/uL (4.2-6.2); RED CELL DISTRIBUTION WIDTH 13.9 % (9.0-15.0); WHITE BLOOD COUNT (AUTO) 22.6 K/uL (4.8-10.8)
[2017-08-24 08:00] VITALS: BP_SYST 143
[2017-08-24] MEDS: FAMOTIDINE 20 MG TABLET PO SCH ×3 (09:00→20:14)
[2017-08-24] MEDS: LORATADINE 10 MG TABLET PO SCH (09:31)
[2017-08-24] MEDS: HYDROcodone/ACETAMIN 5-325 MG TAB (NORCO/ VICODIN) PO PRN (09:34)
[2017-08-24] MEDS: DULoxetine HCL 30 MG CAPSULE.DR (CYMBALTA) PO SCH ×2 (09:35→20:14)
[2017-08-24] MEDS: LEVOFLOXACIN 500 MG/D5W 100 ML IV SCH (09:35)
[2017-08-24] MEDS: FLUTICASONE/VILANTEROL 1 EACH BLST.W.DEV INH SCH (09:36)
[2017-08-24 12:25] VITALS: BP_SYST 133
[2017-08-24 16:47] VITALS: BP_SYST 154
[2017-08-24] MEDS: MONTELUKAST 10 MG TABLET PO SCH (20:13)
[2017-08-24] MEDS: MIRTAZAPINE 15 MG TABLET PO SCH (20:13)
[2017-08-24] MEDS: ATORVASTATIN 10 MG TABLET PO SCH (20:13)
[2017-08-24 20:14] VITALS: BP_SYST 140
[2017-08-24] MEDS: TEMAZEPAM 7.5 MG CAPSULE PO PRN (21:43)
[2017-08-25 00:23] VITALS: BP_SYST 151
[2017-08-25] MEDS: ALBUTEROL SULFATE 0.083% 2.5 MG/3 ML VIAL.NEB INH SCH ×4 (01:20→19:47)
[2017-08-25] MEDS: IPRATROPIUM BROM 0.5 MG/2.5 ML VIAL.NEB (ATROVENT) INH SCH ×4 (01:20→19:47)
[2017-08-25] MEDS: methylPREDNISolone SOD SUCC/PF 62.5 MG/ML VIAL IVP SCH (05:44)
[2017-08-25 07:12] LABS: BASOPHILS % (AUTO) 0.1 % (0.0-2.0); EOSINOPHILS % (AUTO) 0.1 % (0.0-4.0); HEMATOCRIT 38.5 % (36-54); HEMOGLOBIN 12.9 g/dL (14.0-18.0); LYMPHOCYTES # (AUTO) 0.6 K/uL (1.0-5.5); LYMPHOCYTES % (AUTO) 2.6 % (20.5-51.5); MEAN CORPUSCULAR HEMOGLOBIN 31 pg (27-31); MEAN CORPUSCULAR HGB CONC 34 % (32-36); MEAN CORPUSCULAR VOLUME 92 fL (79.0-98.0); MONOCYTES # (AUTO) 0.4 K/uL (0.0-1.0); MONOCYTES % (AUTO) 1.8 % (1.7-9.3); NEUTROPHILS # (AUTO) 22.7 K/uL (1.8-7.7); PLATELET COUNT (AUTO) 259 K/uL (130-430); RED CELL DISTRIBUTION WIDTH 13.8 % (9.0-15.0); WHITE BLOOD COUNT (AUTO) 23.7 K/uL (4.8-10.8)
[2017-08-25] MEDS: FAMOTIDINE 20 MG TABLET PO SCH ×2 (08:29→21:24)
[2017-08-25] MEDS: LORATADINE 10 MG TABLET PO SCH (08:29)
[2017-08-25] MEDS: LEVOFLOXACIN 500 MG/D5W 100 ML IV SCH (08:29)
[2017-08-25] MEDS: DULoxetine HCL 30 MG CAPSULE.DR (CYMBALTA) PO SCH ×2 (08:29→21:25)
[2017-08-25] MEDS: traMADol HCL HCL 50 MG TABLET (ULTRAM) PO PRN ×2 (08:41→17:01)
[2017-08-25 10:12] LABS: NEUTROPHILS % (AUTO) 95.4 % (40.0-70.0)
[2017-08-25 12:42] VITALS: BP_SYST 148
[2017-08-25 16:45] VITALS: BP_SYST 152
[2017-08-25 20:00] VITALS: BP_SYST 157
[2017-08-25] MEDS: MONTELUKAST 10 MG TABLET PO SCH (21:24)
[2017-08-25] MEDS: MIRTAZAPINE 15 MG TABLET PO SCH (21:24)
[2017-08-25] MEDS: ATORVASTATIN 10 MG TABLET PO SCH (21:24)
[2017-08-25] MEDS: PREDNISONE 20 MG TABLET PO SCH (21:25)
[2017-08-25] MEDS: TEMAZEPAM 7.5 MG CAPSULE PO PRN (22:14)
[2017-08-26] MEDS: ALBUTEROL SULFATE 0.083% 2.5 MG/3 ML VIAL.NEB INH SCH ×2 (07:34→15:05)
[2017-08-26] MEDS: IPRATROPIUM BROM 0.5 MG/2.5 ML VIAL.NEB (ATROVENT) INH SCH ×2 (07:34→15:05)
[2017-08-26 08:17] VITALS: BP_SYST 154
[2017-08-26] MEDS: DULoxetine HCL 30 MG CAPSULE.DR (CYMBALTA) PO SCH (10:33)
[2017-08-26] MEDS: FAMOTIDINE 20 MG TABLET PO SCH (10:34)
[2017-08-26] MEDS: PREDNISONE 20 MG TABLET PO SCH (10:34)
[2017-08-26] MEDS: LORATADINE 10 MG TABLET PO SCH (10:34)
[2017-08-26] MEDS: LEVOFLOXACIN 500 MG/D5W 100 ML IV SCH (10:36)
[2017-08-26] MEDS: FLUTICASONE/VILANTEROL 1 EACH BLST.W.DEV INH SCH ×2 (10:40→10:41)
[2017-08-26 12:16] VITALS: BP_SYST 153
[2017-08-26 14:27] VITALS: BP_SYST 153
[2017-08-26 17:06] VITALS: BP_SYST 139
== END 2017-08-26 17:30 | DRG 871 ==
LOC: SED 18:55 → STU 23:14 → SMU 08-24 13:07
PROVIDERS: ADMIT Internal Medicine Hospice and Palliative Medicine; ATTEND Internal Medicine Hospice and Palliative Medicine
DX: A41.9 Sepsis, unspecified organism (principal); J96.20 Acute and chronic respiratory failure, unspecified whether with hypoxia or hypercapnia; J44.1 Chronic obstructive pulmonary disease with (acute) exacerbation; Z99.81 Dependence on supplemental oxygen; E78.5 Hyperlipidemia, unspecified; G89.29 Other chronic pain; Z96.652 Presence of left artificial knee joint; F41.8 Other specified anxiety disorders; I11.9 Hypertensive heart disease without heart failure; D72.829 Elevated white blood cell count, unspecified; Z87.891 Personal history of nicotine dependence; Z90.49 Acquired absence of other specified parts of digestive tract; Z79.899 Other long term (current) drug therapy; Z71.6 Tobacco abuse counseling
CPT/HCPCS: 36415; 71010; 80048; 80053; 82550-TC; 82962; 83605; 83880; 84484; 85025; 85610-TC; 85730-TC; 87040-TC; 87081; 93005; 94640; 94760; 96365; 96367; 96368; 96372; 96375; 97116-GP; 97530-GP; 99285; J1885; J1956; J2270; J2543; J2930; J3370; J7030; J7050; J7512

== ENCOUNTER 2017-09-08 05:17 | Inpatient (IN) | payer OTHER, MEDICARE ==
[~2017-09-08] VITALS: Ht 182.9 cm; Wt 84.8 kg
[2017-09-08] VITALS (7 sets, daily range): BP systolic 18–174
[2017-09-08] MEDS ORDERED: NACL 0.9% 1,000 ML IV ONE (05:30)
[2017-09-08] MEDS ORDERED: MAGNESIUM SULFATE 50 ML IV ONE (05:30)
[2017-09-08] MEDS ORDERED: IPRATROPIUM/ALBUTEROL SULFATE 3 ML AMPUL.NEB INH ONE (05:30)
[2017-09-08] MEDS ORDERED: methylPREDNISolone SOD SUCC/PF 62.5 MG/ML VIAL IVP ONE (05:30)
[2017-09-08 06:27] LABS: BASOPHILS % (AUTO) 0.1 % (0.0-2.0); LYMPHOCYTES # (AUTO) 1.1 K/uL (1.0-5.5); MEAN CORPUSCULAR HEMOGLOBIN 30 pg (27-31); MEAN CORPUSCULAR HGB CONC 33 % (32-36); MONOCYTES # (AUTO) 0.7 K/uL (0.0-1.0); RED CELL DISTRIBUTION WIDTH 14.3 % (9.0-15.0)
[2017-09-08] MEDS ORDERED: ASCO500T20 PO (06:35)
[2017-09-08] MEDS ORDERED: MAGN400O4 PO (06:35)
[2017-09-08] MEDS ORDERED: FLUT1AER INH (06:35)
[2017-09-08] MEDS ORDERED: MULT PO (06:35)
[2017-09-08] MEDS ORDERED: ACET-2165 PO (06:35)
[2017-09-08] MEDS ORDERED: HYDR-1189 PO (06:35)
[2017-09-08] MEDS ORDERED: DULR10 RC (06:35)
[2017-09-08] MEDS ORDERED: LIP10 PO (06:35)
[2017-09-08] MEDS ORDERED: TEMA7.5C PO (06:35)
[2017-09-08] MEDS ORDERED: NA P118E RC (06:35)
[2017-09-08 06:36] LABS: EOSINOPHILS % (AUTO) 0.1 % (0.0-4.0); HEMATOCRIT 43.5 % (36-54); HEMOGLOBIN 14.2 g/dL (14.0-18.0); LYMPHOCYTES % (AUTO) 6.3 % (20.5-51.5); MEAN CORPUSCULAR VOLUME 93 fL (79.0-98.0); NEUTROPHILS # (AUTO) 15.2 K/uL (1.8-7.7); NEUTROPHILS % (AUTO) 89.5 % (40.0-70.0); PLATELET COUNT (AUTO) 235 K/uL (130-430)
[2017-09-08 06:38] LABS: ALANINE AMINOTRANSFERASE 44 U/L (12-78); ALBUMIN 3.7 g/dL (3.4-4.8); ANION GAP 8 (5-15); ASPARTATE AMINOTRANSFERASE 20 U/L (10-37); CHLORIDE 101 mmol/L (98-107); GLUCOSE 101 mg/dL (70-99); POTASSIUM 3.9 mmol/L (3.5-5.1); SODIUM SERUM 144 mmol/L (136-145); TOTAL BILIRUBIN 0.5 mg/dL (0.0-1.0); UREA NITROGEN, BLOOD 18 mg/dL (8-21)
[2017-09-08 06:46] LABS: PROTHROMBIN TIME 9.7 SECS (9.5-12.5)
[2017-09-08] MEDS ORDERED: PIPERACILLIN/TAZOBACTAM 3.375 GM/VIAL (ZOSYN) IV ONE (06:55)
[2017-09-08] MEDS ORDERED: PIPERACILLIN/TAZO 3.375 GM in NS 50 ML IV ONE (07:00)
[2017-09-08] MEDS ORDERED: IPRATROPIUM BROM 0.5 MG/2.5 ML VIAL.NEB (ATROVENT) INH PRN (07:15)
[2017-09-08] MEDS ORDERED: TEMAZEPAM 15 MG CAPSULE PO PRN (07:15)
[2017-09-08] MEDS ORDERED: ALBUTEROL SULFATE 0.083% 2.5 MG/3 ML VIAL.NEB INH PRN (07:15)
[2017-09-08] MEDS ORDERED: NACL 0.9% 2,500 ML IV ONE (07:30)
[2017-09-08] MEDS: IPRATROPIUM BROM 0.5 MG/2.5 ML VIAL.NEB (ATROVENT) INH SCH ×2 (09:10→19:00)
[2017-09-08] MEDS: ALBUTEROL SULFATE 0.083% 2.5 MG/3 ML VIAL.NEB INH SCH ×2 (09:10→19:00)
[2017-09-08] MEDS: cefTRIAXone 1 GM in D5W 50 ML IV SCH (09:34)
[2017-09-08] MEDS ORDERED: LORazepam 1 MG TABLET PO PRN (11:00)
[2017-09-08] MEDS ORDERED: ACETAMINOPHEN 325 MG TABLET PO PRN (11:00)
[2017-09-08] MEDS ORDERED: traMADol HCL HCL 50 MG TABLET (ULTRAM) PO PRN (11:00)
[2017-09-08] MEDS ORDERED: BISACODYL 10 MG/SUPPOSITORY RC PRN (11:00)
[2017-09-08] MEDS: AZITHROMYCIN 500 MG in D5W 250 ML IV SCH (11:26)
[2017-09-08] MEDS: methylPREDNISolone SOD SUCC/PF 62.5 MG/ML VIAL IVP SCH ×2 (14:36→22:18)
[2017-09-08] MEDS: HYDROcodone/ACETAMIN 5-325 MG TAB (NORCO/ VICODIN) PO PRN (16:12)
[2017-09-08] MEDS: ATORVASTATIN 10 MG TABLET PO SCH (21:43)
[2017-09-08] MEDS: FAMOTIDINE 20 MG TABLET PO SCH (21:43)
[2017-09-08] MEDS: DULoxetine HCL 30 MG CAPSULE.DR (CYMBALTA) PO SCH (21:43)
[2017-09-08] MEDS: MONTELUKAST 10 MG TABLET PO SCH (21:43)
[2017-09-08] MEDS: MIRTAZAPINE 15 MG TABLET PO SCH (21:43)
[2017-09-09 00:08] VITALS: BP_SYST 155
[2017-09-09] MEDS: IPRATROPIUM BROM 0.5 MG/2.5 ML VIAL.NEB (ATROVENT) INH SCH ×4 (01:00→19:43)
[2017-09-09] MEDS: ALBUTEROL SULFATE 0.083% 2.5 MG/3 ML VIAL.NEB INH SCH ×4 (01:00→19:43)
[2017-09-09 03:11] VITALS: BP_SYST 151
[2017-09-09] MEDS: methylPREDNISolone SOD SUCC/PF 62.5 MG/ML VIAL IVP SCH ×3 (05:55→22:13)
[2017-09-09 08:23] VITALS: BP_SYST 184
[2017-09-09] MEDS: ENALAPRILAT DIHYDRATE 1.25 MG/ML VIAL IVP PRN (09:01)
[2017-09-09] MEDS: FLUTICASONE/VILANTEROL 1 EACH BLST.W.DEV INH SCH (09:02)
[2017-09-09] MEDS: FAMOTIDINE 20 MG TABLET PO SCH ×2 (09:02→20:05)
[2017-09-09] MEDS: MULTIVITAMINS TAB 1 TABLET PO SCH (09:03)
[2017-09-09] MEDS: ASCORBIC ACID 500 MG TABLET PO SCH (09:03)
[2017-09-09] MEDS: DULoxetine HCL 30 MG CAPSULE.DR (CYMBALTA) PO SCH ×2 (09:03→20:04)
[2017-09-09] MEDS: LORATADINE 10 MG TABLET PO SCH (09:03)
[2017-09-09] MEDS: cefTRIAXone 1 GM in D5W 50 ML IV SCH (09:05)
[2017-09-09] MEDS: AZITHROMYCIN 500 MG in D5W 250 ML IV SCH (09:56)
[2017-09-09 12:17] VITALS: BP_SYST 134
[2017-09-09] MEDS: ACETYLCYSTEINE 20% 4 ML VIAL (RT) INH SCH ×2 (13:30→20:03)
[2017-09-09] MEDS: HYDROcodone/ACETAMIN 5-325 MG TAB (NORCO/ VICODIN) PO PRN (14:05)
[2017-09-09 16:32] VITALS: BP_SYST 143
[2017-09-09 19:45] VITALS: BP_SYST 145
[2017-09-09] MEDS: MONTELUKAST 10 MG TABLET PO SCH (20:04)
[2017-09-09] MEDS: MIRTAZAPINE 15 MG TABLET PO SCH (20:04)
[2017-09-09] MEDS: ATORVASTATIN 10 MG TABLET PO SCH (20:05)
[2017-09-09] MEDS: TEMAZEPAM 7.5 MG CAPSULE PO PRN (22:25)
[2017-09-10 00:52] VITALS: BP_SYST 143
[2017-09-10] MEDS: IPRATROPIUM BROM 0.5 MG/2.5 ML VIAL.NEB (ATROVENT) INH SCH ×4 (01:00→19:01)
[2017-09-10] MEDS: ALBUTEROL SULFATE 0.083% 2.5 MG/3 ML VIAL.NEB INH SCH ×4 (01:00→19:00)
[2017-09-10] MEDS: methylPREDNISolone SOD SUCC/PF 62.5 MG/ML VIAL IVP SCH ×3 (05:10→23:06)
[2017-09-10 06:04] VITALS: BP_SYST 136
[2017-09-10] MEDS: ACETYLCYSTEINE 20% 4 ML VIAL (RT) INH SCH ×3 (07:15→21:01)
[2017-09-10 07:50] VITALS: BP_SYST 160
[2017-09-10] MEDS: MULTIVITAMINS TAB 1 TABLET PO SCH (08:57)
[2017-09-10] MEDS: LORATADINE 10 MG TABLET PO SCH (08:57)
[2017-09-10] MEDS: FAMOTIDINE 20 MG TABLET PO SCH ×2 (08:57→20:06)
[2017-09-10] MEDS: DULoxetine HCL 30 MG CAPSULE.DR (CYMBALTA) PO SCH ×2 (08:58→20:06)
[2017-09-10] MEDS: ASCORBIC ACID 500 MG TABLET PO SCH (08:58)
[2017-09-10] MEDS: AZITHROMYCIN 500 MG in D5W 250 ML IV SCH (09:00)
[2017-09-10] MEDS: cefTRIAXone 1 GM in D5W 50 ML IV SCH (09:01)
[2017-09-10] MEDS: FLUTICASONE/VILANTEROL 1 EACH BLST.W.DEV INH SCH (09:23)
[2017-09-10 13:31] VITALS: BP_SYST 158
[2017-09-10] MEDS: PIPERACILLIN/TAZO 3.375/DEX-IS 50 ML IV SCH ×3 (13:49→23:06)
[2017-09-10] MEDS ORDERED: guaiFENesin ER 600 MG TAB PO ONE (14:00)
[2017-09-10] MEDS ORDERED: LORATADINE 10 MG TABLET PO ONE (14:00)
[2017-09-10 16:12] VITALS: BP_SYST 142
[2017-09-10 19:45] VITALS: BP_SYST 149
[2017-09-10] MEDS: ATORVASTATIN 10 MG TABLET PO SCH (20:06)
[2017-09-10] MEDS: MIRTAZAPINE 15 MG TABLET PO SCH (20:06)
[2017-09-10] MEDS: guaiFENesin ER 600 MG TAB PO SCH (20:07)
[2017-09-10] MEDS: MONTELUKAST 10 MG TABLET PO SCH (20:08)
[2017-09-11] VITALS (7 sets, daily range): BP systolic 141–172
[2017-09-11] MEDS: ALBUTEROL SULFATE 0.083% 2.5 MG/3 ML VIAL.NEB INH SCH ×4 (01:05→19:10)
[2017-09-11] MEDS: IPRATROPIUM BROM 0.5 MG/2.5 ML VIAL.NEB (ATROVENT) INH SCH ×4 (01:06→19:10)
[2017-09-11] MEDS: methylPREDNISolone SOD SUCC/PF 62.5 MG/ML VIAL IVP SCH ×3 (05:03→21:23)
[2017-09-11] MEDS: PIPERACILLIN/TAZO 3.375/DEX-IS 50 ML IV SCH ×3 (05:03→17:48)
[2017-09-11 06:39] LABS: ANION GAP 6 (5-15); CALCIUM 8.1 mg/dL (8.4-11.0); CHLORIDE 104 mmol/L (98-107); GLUCOSE 145 mg/dL (70-99); POTASSIUM 4.2 mmol/L (3.5-5.1); SODIUM SERUM 142 mmol/L (136-145); UREA NITROGEN, BLOOD 23 mg/dL (8-21)
[2017-09-11 06:43] LABS: BASOPHILS % (AUTO) 0.1 % (0.0-2.0); HEMATOCRIT 39.7 % (36-54); HEMOGLOBIN 13.3 g/dL (14.0-18.0); LYMPHOCYTES # (AUTO) 0.6 K/uL (1.0-5.5); LYMPHOCYTES % (AUTO) 3.4 % (20.5-51.5); MEAN CORPUSCULAR HEMOGLOBIN 31 pg (27-31); MEAN CORPUSCULAR HGB CONC 34 % (32-36); MEAN CORPUSCULAR VOLUME 93 fL (79.0-98.0); MONOCYTES # (AUTO) 0.5 K/uL (0.0-1.0); MONOCYTES % (AUTO) 2.6 % (1.7-9.3); NEUTROPHILS # (AUTO) 17.4 K/uL (1.8-7.7); NEUTROPHILS % (AUTO) 93.9 % (40.0-70.0); PLATELET COUNT (AUTO) 244 K/uL (130-430); RED BLOOD CELL COUNT(AUTO) 4.28 MIL/uL (4.2-6.2); RED CELL DISTRIBUTION WIDTH 14.4 % (9.0-15.0); WHITE BLOOD COUNT (AUTO) 18.5 K/uL (4.8-10.8)
[2017-09-11] MEDS: ACETYLCYSTEINE 20% 4 ML VIAL (RT) INH SCH ×3 (08:02→21:20)
[2017-09-11] MEDS: MULTIVITAMINS TAB 1 TABLET PO SCH (08:13)
[2017-09-11] MEDS: guaiFENesin ER 600 MG TAB PO SCH ×2 (08:13→20:11)
[2017-09-11] MEDS: DULoxetine HCL 30 MG CAPSULE.DR (CYMBALTA) PO SCH ×2 (08:13→20:10)
[2017-09-11] MEDS: ASCORBIC ACID 500 MG TABLET PO SCH (08:14)
[2017-09-11] MEDS: LORATADINE 10 MG TABLET PO SCH (08:14)
[2017-09-11] MEDS: FAMOTIDINE 20 MG TABLET PO SCH ×2 (08:14→20:11)
[2017-09-11] MEDS: FLUTICASONE/VILANTEROL 1 EACH BLST.W.DEV INH SCH (08:16)
[2017-09-11] MEDS: AZITHROMYCIN 500 MG in D5W 250 ML IV SCH (08:19)
[2017-09-11] MEDS ORDERED: guaiFENesin ER 600 MG TAB PO SCH (09:00)
[2017-09-11] MEDS: MONTELUKAST 10 MG TABLET PO SCH (20:11)
[2017-09-11] MEDS: MIRTAZAPINE 15 MG TABLET PO SCH (20:11)
[2017-09-11] MEDS: ATORVASTATIN 10 MG TABLET PO SCH (20:11)
[2017-09-11] MEDS: TEMAZEPAM 7.5 MG CAPSULE PO PRN (21:22)
[2017-09-12] MEDS: PIPERACILLIN/TAZO 3.375/DEX-IS 50 ML IV SCH ×4 (00:12→18:00)
[2017-09-12 00:32] VITALS: BP_SYST 145
[2017-09-12] MEDS: IPRATROPIUM BROM 0.5 MG/2.5 ML VIAL.NEB (ATROVENT) INH SCH ×4 (00:35→19:35)
[2017-09-12] MEDS: ALBUTEROL SULFATE 0.083% 2.5 MG/3 ML VIAL.NEB INH SCH ×4 (00:35→19:34)
[2017-09-12 04:50] VITALS: BP_SYST 185
[2017-09-12] MEDS: methylPREDNISolone SOD SUCC/PF 62.5 MG/ML VIAL IVP SCH ×3 (05:10→20:23)
[2017-09-12] MEDS: HYDROcodone/ACETAMIN 5-325 MG TAB (NORCO/ VICODIN) PO PRN (05:11)
[2017-09-12] MEDS: ACETYLCYSTEINE 20% 4 ML VIAL (RT) INH SCH ×3 (07:30→21:00)
[2017-09-12 08:00] VITALS: BP_SYST 153
[2017-09-12] MEDS ORDERED: COMMUNICATION ORDER XX ONE (09:45)
[2017-09-12] MEDS: AZITHROMYCIN 500 MG in D5W 250 ML IV SCH (09:56)
[2017-09-12] MEDS: FLUTICASONE/VILANTEROL 1 EACH BLST.W.DEV INH SCH (09:57)
[2017-09-12] MEDS: guaiFENesin ER 600 MG TAB PO SCH ×3 (09:58→20:22)
[2017-09-12] MEDS: DULoxetine HCL 30 MG CAPSULE.DR (CYMBALTA) PO SCH ×3 (09:58→20:22)
[2017-09-12] MEDS: ASCORBIC ACID 500 MG TABLET PO SCH (09:58)
[2017-09-12] MEDS: LORATADINE 10 MG TABLET PO SCH (09:58)
[2017-09-12] MEDS: FAMOTIDINE 20 MG TABLET PO SCH ×3 (09:59→20:22)
[2017-09-12] MEDS: MULTIVITAMINS TAB 1 TABLET PO SCH (10:04)
[2017-09-12] MEDS ORDERED: guaiFENesin ER 600 MG TAB PO ONE (11:00)
[2017-09-12 11:28] VITALS: BP_SYST 147
[2017-09-12 15:36] VITALS: BP_SYST 161
[2017-09-12] MEDS: MONTELUKAST 10 MG TABLET PO SCH ×2 (17:00→20:22)
[2017-09-12] MEDS: ATORVASTATIN 10 MG TABLET PO SCH ×2 (17:00→20:23)
[2017-09-12] MEDS: MIRTAZAPINE 15 MG TABLET PO SCH ×2 (17:00→20:22)
[2017-09-12 20:00] VITALS: BP_SYST 143
[2017-09-12] MEDS ORDERED: methylPREDNISolone SOD SUCC/PF 62.5 MG/ML VIAL IVP SCH (21:00)
[2017-09-12] MEDS: TEMAZEPAM 7.5 MG CAPSULE PO PRN (21:17)
[2017-09-13] MEDS: IPRATROPIUM BROM 0.5 MG/2.5 ML VIAL.NEB (ATROVENT) INH SCH ×3 (00:02→13:00)
[2017-09-13] MEDS: ALBUTEROL SULFATE 0.083% 2.5 MG/3 ML VIAL.NEB INH SCH ×3 (00:02→13:00)
[2017-09-13] MEDS: PIPERACILLIN/TAZO 3.375/DEX-IS 50 ML IV SCH ×3 (00:15→11:00)
[2017-09-13 06:03] VITALS: BP_SYST 147
[2017-09-13 08:02] VITALS: BP_SYST 187
[2017-09-13] MEDS: methylPREDNISolone SOD SUCC/PF 62.5 MG/ML VIAL IVP SCH (08:05)
[2017-09-13] MEDS: DULoxetine HCL 30 MG CAPSULE.DR (CYMBALTA) PO SCH (08:06)
[2017-09-13] MEDS: ASCORBIC ACID 500 MG TABLET PO SCH (08:06)
[2017-09-13] MEDS: FAMOTIDINE 20 MG TABLET PO SCH (08:06)
[2017-09-13] MEDS: guaiFENesin ER 600 MG TAB PO SCH (08:07)
[2017-09-13] MEDS: MULTIVITAMINS TAB 1 TABLET PO SCH (08:07)
[2017-09-13] MEDS: LORATADINE 10 MG TABLET PO SCH (08:07)
[2017-09-13] MEDS: FLUTICASONE/VILANTEROL 1 EACH BLST.W.DEV INH SCH (08:08)
[2017-09-13] MEDS: ACETYLCYSTEINE 20% 4 ML VIAL (RT) INH SCH ×2 (09:08→15:00)
[2017-09-13 10:23] VITALS: BP_SYST 187
[2017-09-13 10:32] VITALS: BP_SYST 172
[2017-09-13] MEDS: ENALAPRILAT DIHYDRATE 1.25 MG/ML VIAL IVP PRN (11:00)
[2017-09-13 11:38] VITALS: BP_SYST 172
[2017-09-13 15:23] VITALS: BP_SYST 147
== END 2017-09-13 16:30 | disposition home or self-care (01) | DRG 871 ==
LOC: SED 05:17 → STU 07:14
PROVIDERS: ADMIT Internal Medicine Hospice and Palliative Medicine; ATTEND Internal Medicine Hospice and Palliative Medicine
DX: A41.9 Sepsis, unspecified organism (principal); J96.21 Acute and chronic respiratory failure with hypoxia; J18.9 Pneumonia, unspecified organism; J44.0 Chronic obstructive pulmonary disease with (acute) lower respiratory infection; Z99.81 Dependence on supplemental oxygen; I50.9 Heart failure, unspecified; J44.1 Chronic obstructive pulmonary disease with (acute) exacerbation; J98.11 Atelectasis; Z96.652 Presence of left artificial knee joint; M54.9 Dorsalgia, unspecified; G89.4 Chronic pain syndrome; E78.5 Hyperlipidemia, unspecified; J20.9 Acute bronchitis, unspecified; F32.9 Major depressive disorder, single episode, unspecified; F41.9 Anxiety disorder, unspecified; Z87.891 Personal history of nicotine dependence; Z90.49 Acquired absence of other specified parts of digestive tract; Z79.52 Long term (current) use of systemic steroids; Z79.899 Other long term (current) drug therapy
CPT/HCPCS: 36415; 36600; 71010; 80048; 80053; 82803-TC; 83605; 83880; 84484; 85025; 85610-TC; 85730-TC; 87040-TC; 87070-TC; 87081; 87205-TC; 93005; 93970; 94640; 94760; 96365; 96368; 96375; 97110-GP; 97116-GP; 97530-GP; 99285; J0456; J0696; J2543; J2930; J3475; J7030; J7060